=== PATIENT | female | born 1970 | race Hispanic/Latino ===

== ENCOUNTER 2018-11-30 16:24 | Emergency (ER) | payer BC, OTHER ==
[2018-11-30 17:10] LABS: Absolute Lymphocytes (CBC) 1.8 K/uL (0.7-4.9); Basophils % 0.8 % (0-1.3); Hematocrit 23.7 % (36.0-45.0); Lymphocytes % 25.5 % (15.3-44.8); MPV 8.7 fL (7.6-11.3); RBC Red Blood Cell Count 3.75 M/uL (3.86-4.86)
[2018-11-30 17:16] LABS: Protime INR 1.1
[2018-11-30 17:34] LABS: ALT/SGPT 14 U/L (12-78); AST/SGOT 16 U/L (15-37); Albumin 3.3 g/dL (3.4-5.0); Alkaline Phosphatase 95 U/L (45-117); BUN Blood Urea Nitrogen 7 mg/dL (7-18); Bicarbonate 25 mmol/L (21-32); Bilirubin Direct 0.3 mg/dL (0-0.2); Bilirubin Total 1.2 mg/dL (0.2-1.0); Glucose Level 105 mg/dL (74-106); Magnesium 2.2 mg/dL (1.8-2.4); Potassium 3.3 mmol/L (3.5-5.1); Protein, Total 7.2 g/dL (6.4-8.2); Sodium Level 140 mmol/L (136-145); Troponin (Emerg Dept Use Only) < 0.02 ng/mL (0.0-0.045)
[2018-11-30 18:23] LABS: Anisocytosis 2+; Blood Morphology Comment NOTED (NOT SEEN); Hypochromasia 2+; Platelet Estimate INCR; Poikilocytosis 1+; Urine White Blood Cell Casts OK
[2018-11-30] MEDS ORDERED: NA CHLORIDE 0.9% 500 ML ONE (21:28)
[2018-12-01] MEDS ORDERED: NA CHLORIDE 0.9% 500 ML ONE (00:07)
--- NOTE | 2018-12-01 02:20 | EDPHYS ---
Physician Documentation [facility] Name: Herlinda Mackay Age: 48 yrs Sex: Female : 1970 Arrival Date: 11/30/2018 Time: 16:27 Bed 30 Private MD: ED Physician Valerio Torres HPI: 11/30 16:45 This 48 yrs old Female presents to ER via Ambulatory with complaints of cp Abnormal Lab Results. 16:45 abnormal lab results. Onset: The symptoms/episode began/occurred today. The patient has cp experienced a previous episode, years ago. 16:45 Patient reports she was told to go to ED for low hemoglobin by PCP today. Patient cp reports anemia in the past that required hospitalization due to heavy menstrual bleeding. Patient denies any current menstrual bleeding, dark or bloody stools. Reports dizziness. Historical: - Allergies: 16:32 No Known Allergies; aj - Home Meds: 16:32 lisinopril 20 mg Oral tab 1 tab once daily [Active]; aj - PMHx: 16:32 Hypertension; Anemia; aj - PSHx: 16:32 ; Appendectomy; aj - Immunization history:: Adult Immunizations up to date. - Social history:: Smoking status: Patient/guardian denies using tobacco. - Ebola Screening: : Patient negative for fever greater than or equal to 101.5 degrees Fahrenheit, and additional compatible Ebola Virus Disease symptoms Patient denies exposure to infectious person Patient denies travel to an Ebola-affected area in the 21 days before illness onset No symptoms or risks identified at this time. ROS: 16:55 Constitutional: Negative for body aches, chills, fever, poor PO intake. cp 16:55 Eyes: Negative for injury, pain, redness, and discharge. cp 16:55 ENT: Negative for drainage from ear(s), ear pain, sore throat, difficulty swallowing, difficulty handling secretions. 16:55 Cardiovascular: Negative for chest pain, edema, palpitations. 16:55 Respiratory: Positive for shortness of breath, Negative for cough, wheezing. 16:55 Abdomen/GI: Negative for abdominal pain, nausea, vomiting, and diarrhea, constipation, black/tarry stool, rectal bleeding. 16:55 Back: Negative for pain at rest, pain with movement. 16:55 : Negative for urinary symptoms, vaginal bleeding, vaginal discharge. 16:55 Neuro: Positive for dizziness, Negative for altered mental status, syncope, weakness. 16:55 All other systems are negative. Exam: 17:00 Constitutional: The patient appears in no acute distress, alert, awake, cp non-diaphoretic, non-toxic, well developed, well nourished. 17:00 Head/Face: Normocephalic, atraumatic. cp 17:00 Eyes: Periorbital structures: appear normal, Conjunctiva: normal, no exudate, no injection, Lids and lashes: appear normal, bilaterally. 17:00 ENT: External ear(s): are unremarkable, Nose: is normal, Mouth: is normal, Posterior pharynx: is normal, airway is patent. 17:00 Neck: ROM/movement: is normal, is supple, without pain, no range of motions limitations, no nuchal rigidity. 17:00 Chest/axilla: Inspection: normal. 17:00 Cardiovascular: Rate: normal, Rhythm: regular, Heart sounds: murmur, not appreciated, Edema: is not appreciated, JVD: is not appreciated. 17:00 Respiratory: the patient does not display signs of respiratory distress, Respirations: normal, no use of accessory muscles, no retractions, no splinting, no tachypnea, labored breathing, is not present, Breath sounds: are clear throughout, no decreased breath sounds, no stridor, no wheezing. 17:00 Abdomen/GI: Inspection: abdomen appears normal, Palpation: abdomen is soft and non-tender, in all quadrants, Rectal exam: Stool: brown, guaiac negative. 17:00 Neuro: Orientation: to person, place \T\ time. Mentation: is normal, Cerebellar function: is grossly normal, Motor: moves all fours, strength is normal, Sensation: is normal. 17:15 ECG was reviewed by the Attending Physician. cp Vital Signs: 16:32 BP 172 / 90; Pulse 76; Resp 16; Temp 98.4; Pulse Ox 100% on R/A; Weight 83.01 kg; aj Height 5 ft. 3 in. (160.02 cm); 17:24 BP 116 / 73 Supine; Pulse 74; wh 17:24 BP 125 / 80 Sitting; Pulse 86; wh 17:24 BP 124 / 84 Standing; Pulse 83; Resp 18; Pulse Ox 99% on R/A; wh 18:30 BP 120 / 77; Pulse 74; Resp 18; Pulse Ox 100% on R/A; wh 19:37 BP 119 / 77; Pulse 76; Resp 15; Pulse Ox 100% on R/A; aj 20:30 BP 121 / 80; Pulse 70; Resp 18; Pulse Ox 99% ; ea 21:30 BP 131 / 75; Pulse 90; Resp 18; Temp 98.7; Pulse Ox 100% ; ea 22:30 BP 110 / 74; Pulse 84; Resp 18; Pulse Ox 98% ; ea 23:45 BP 113 / 74; Pulse 72; Resp 18; Pulse Ox 100% ; ea 12/01 00:25 BP 107 / 66; Pulse 66; Resp 18; Pulse Ox 100% ; ea 11/30 16:32 Body Mass Index 32.42 (83.01 kg, 160.02 cm) aj MDM: 11/30 16:33 Patient medically screened. [facility] 12/01 02:18 Data reviewed: vital signs, nurses notes, lab test result(s), EKG, I have discussed the cp patient's presentation/case with the attending Emergency Department Physician; and as a result, I will discharge patient. 02:18 Test interpretation: by ED physician or midlevel provider: ECG. Response to treatment: the patient's symptoms have markedly improved after treatment, and as a result, I will discharge patient. 11/30 16:41 Order name: Basic Metabolic Panel; Complete Time: 18:02 11/30 18:02 Interpretation: Normal except: K 3.3; CA 8.1. 11/30 16:41 Order name: CBC with Diff; Complete Time: 19:09 11/30 16:41 Order name: LFT's; Complete Time: 18:02 11/30 19:08 Interpretation: Normal except: BILIT 1.2; BILID 0.3; ALB 3.3; GLOB 3.9; A/G 0.8. 11/30 16:41 Order name: Magnesium; Complete Time: 18:02 11/30 16:41 Order name: PT-INR; Complete Time: 18:02 11/30 16:41 Order name: Troponin (emerg Dept Use Only); Complete Time: 18:02 11/30 16:41 Order name: Ptt, Activated; Complete Time: 18:02 11/30 17:33 Order name: Type And Screen cp 11/30 17:33 Order name: CBC Smear Scan; Complete Time: 19:09 [facility] 11/30 17:33 Order name: Occult Blood--Ancillary bd 11/30 18:09 Order name: Bb Add On bd 11/30 19:12 Order name: Packed RBCs (Additional Unit) [facility] 11/30 20:30 Order name: ABO/RH no charge; Complete Time: 02:20 [facility] 11/30 16:41 Order name: Orthostatics; Complete Time: 17:19 cp 11/30 16:41 Order name: EKG; Complete Time: 16:43 11/30 16:41 Order name: Cardiac monitoring; Complete Time: 17:03 11/30 16:41 Order name: EKG - Nurse/Tech; Complete Time: 17:03 cp 11/30 16:41 Order name: IV Saline Lock; Complete Time: 17:03 11/30 16:41 Order name: Labs collected and sent; Complete Time: 17:03 11/30 16:41 Order name: O2 Per Protocol; Complete Time: 17:03 cp 11/30 16:41 Order name: O2 Sat Monitoring; Complete Time: 17:03 cp EC/29 17:15 Rate is 74 beats/min. Rhythm is regular. GA interval is normal. QRS interval is normal. cp QT interval is normal. Interpreted by me. Administered Medications: 12/01 02:21 CANCELLED (Physician Discretion): Potassium Effervescent Tablet 50 mEq PO once; cp dissolve in 4 ounces of water or juice 02:36 Drug: Potassium Effervescent Tablet 25 mEq Route: PO; ea Disposition: 07:47 Co-signature as Attending Physician, Valerio Torres MD I agree with the assessment and [facility] plan of care. Disposition: 12/01/18 02:19 Discharged to Home. Impression: Anemia in chronic diseases classified elsewhere. - Condition is Stable. - Discharge Instructions: Anemia, Nonspecific. - Medication Reconciliation Form, Thank You Letter, Antibiotic Education, Prescription Opioid Use form. - Follow up: Private Physician; When: 1 - 2 days; Reason: Recheck today's complaints. - Problem is new. - Symptoms have improved. Signatures: Dispatcher [employer] Shahida Rae RN RN aj Anderson, Corey, MD MD cha Page, Corey PA PA cp Erin Adrian, RN RN ea Corrections: (The following items were deleted from the chart) 11/30 18:03 18:02 Normal except: K 3.3. cp cp 12/01 02:21 02:20 Potassium Effervescent Tablet 50 mEq PO once; dissolve in 4 ounces of water or cp juice ordered. cp 03:04 02:19 12/01/2018 02:19 Discharged to Home. Impression: Anemia in chronic diseases ea classified elsewhere. Condition is Stable. Forms are Medication Reconciliation Form, Thank You Letter, Antibiotic Education, Prescription Opioid Use. Follow up: Private Physician; When: 1 - 2 days; Reason: Recheck today's complaints. Problem is new. Symptoms have improved. cp
--- NOTE | 2018-12-01 02:20 | ER ---
Nurse's Notes [facility] Name: Herlinda Mackay Age: 48 yrs Sex: Female : 1970 Arrival Date: 11/30/2018 Time: 16:27 Bed 30 Private MD: Diagnosis: Anemia in chronic diseases classified elsewhere Presentation: 11/30 16:30 Presenting complaint: Patient states: Low HGB per PCP. Transition of care: patient was aj not received from another setting of care. Onset of symptoms was November 27, 2018. Risk Assessment: Do you want to hurt yourself or someone else? Patient reports no desire to harm self or others. Initial Sepsis Screen: Does the patient meet any 2 criteria? No. Patient's initial sepsis screen is negative. Does the patient have a suspected source of infection? No. Patient's initial sepsis screen is negative. Care prior to arrival: None. 16:30 Method Of Arrival: Ambulatory aj 16:30 Acuity: MARU 3 aj Triage Assessment: 16:32 General: Appears in no apparent distress. comfortable, Behavior is calm, cooperative, aj appropriate for age. Pain: Denies pain. Neuro: Level of Consciousness is awake, alert, obeys commands, Oriented to person, place, time, situation, Appropriate for age. Respiratory: Airway is patent Respiratory effort is even, unlabored, Respiratory pattern is regular, symmetrical. Derm: Skin is intact, is healthy with good turgor, Skin is pink, warm \T\ dry. normal. Historical: - Allergies: 16:32 No Known Allergies; aj - Home Meds: 16:32 lisinopril 20 mg Oral tab 1 tab once daily [Active]; aj - PMHx: 16:32 Hypertension; Anemia; aj - PSHx: 16:32 ; Appendectomy; aj - Immunization history:: Adult Immunizations up to date. - Social history:: Smoking status: Patient/guardian denies using tobacco. - Ebola Screening: : Patient negative for fever greater than or equal to 101.5 degrees Fahrenheit, and additional compatible Ebola Virus Disease symptoms Patient denies exposure to infectious person Patient denies travel to an Ebola-affected area in the 21 days before illness onset No symptoms or risks identified at this time. Screenin:22 Abuse screen: Denies threats or abuse. Denies injuries from another. Nutritional wh screening: No deficits noted. Tuberculosis screening: No symptoms or risk factors identified. Fall Risk None identified. Assessment: 17:23 General: Appears in no apparent distress. comfortable, Behavior is calm, cooperative, wh appropriate for age. Pain: Denies pain. Neuro: Level of Consciousness is awake, alert, obeys commands, Oriented to person, place, time, situation, Appropriate for age. Cardiovascular: Capillary refill < 3 seconds. Respiratory: Airway is patent Respiratory effort is even, unlabored, Respiratory pattern is regular, symmetrical. GI: Abdomen is flat, non-distended, Abd is soft and non tender X 4 quads. : No signs and/or symptoms were reported regarding the genitourinary system. EENT: No signs and/or symptoms were reported regarding the EENT system. Derm: Skin is intact, is healthy with good turgor, Skin is pink, warm \T\ dry. normal. Musculoskeletal: Range of motion: intact in all extremities. 18:30 Reassessment: Patient appears in no apparent distress at this time. Patient and/or wh family updated on plan of care and expected duration. Pain level reassessed. Patient is alert, oriented x 3, equal unlabored respirations, skin warm/dry/pink. 19:23 Reassessment: Patient appears in no apparent distress at this time. No changes from aj previously documented assessment. Patient and/or family updated on plan of care and expected duration. Pain level reassessed. Patient is alert, oriented x 3, equal unlabored respirations, skin warm/dry/pink. Patient and family concerned about blood type screening. Blood type verified with lab via phone. Patient denies pain at this time. 20:00 Reassessment: Patient and/or family updated on plan of care and expected duration. Pain ea level reassessed. Patient is alert, oriented x 3, equal unlabored respirations, skin warm/dry/pink. 21:50 Reassessment: Patient and/or family updated on plan of care and expected duration. Pain ea level reassessed. Patient is alert, oriented x 3, equal unlabored respirations, skin warm/dry/pink. 21:54 Reassessment: Patient is alert, oriented x 3, equal unlabored respirations, skin ea warm/dry/pink. Blood transfusion initiated, pt tolerating well at this time. See transfusion flow sheet. 22:23 Reassessment: Patient and/or family updated on plan of care and expected duration. Pain ea level reassessed. Patient is alert, oriented x 3, equal unlabored respirations, skin warm/dry/pink. Patient denies pain at this time. 23:45 Reassessment: Patient and/or family updated on plan of care and expected duration. Pain ea level reassessed. Patient is alert, oriented x 3, equal unlabored respirations, skin warm/dry/pink. First unit of blood completed, pt tolerated well. 12/01 00:25 Reassessment: Patient and/or family updated on plan of care and expected duration. Pain ea level reassessed. Patient is alert, oriented x 3, equal unlabored respirations, skin warm/dry/pink. Second unit of blood started, pt tolerating well, see flow sheet. 01:17 Reassessment: Patient and/or family updated on plan of care and expected duration. Pain ea level reassessed. Pt resting with eyes closed, respirations even and unlabored. Chest expansions even and symmetrical. No s/s of pain or discomfort noted at this time. 01:55 Reassessment: Patient and/or family updated on plan of care and expected duration. Pain ea level reassessed. Patient is alert, oriented x 3, equal unlabored respirations, skin warm/dry/pink. Blood transfusion completed, pt tolerated well. 02:58 Reassessment: Patient and/or family updated on plan of care and expected duration. Pain ea level reassessed. Patient is alert, oriented x 3, equal unlabored respirations, skin warm/dry/pink. Discharge instruction given, verbalized the understanding of instruction, pt reports she is feeling better. Pt left ED ambulatory with family, tolerating well. Vital Signs: 11/30 16:32 BP 172 / 90; Pulse 76; Resp 16; Temp 98.4; Pulse Ox 100% on R/A; Weight 83.01 kg; aj Height 5 ft. 3 in. (160.02 cm); 17:24 BP 116 / 73 Supine; Pulse 74; wh 17:24 BP 125 / 80 Sitting; Pulse 86; wh 17:24 BP 124 / 84 Standing; Pulse 83; Resp 18; Pulse Ox 99% on R/A; wh 18:30 BP 120 / 77; Pulse 74; Resp 18; Pulse Ox 100% on R/A; wh 19:37 BP 119 / 77; Pulse 76; Resp 15; Pulse Ox 100% on R/A; aj 20:30 BP 121 / 80; Pulse 70; Resp 18; Pulse Ox 99% ; ea 21:30 BP 131 / 75; Pulse 90; Resp 18; Temp 98.7; Pulse Ox 100% ; ea 22:30 BP 110 / 74; Pulse 84; Resp 18; Pulse Ox 98% ; ea 23:45 BP 113 / 74; Pulse 72; Resp 18; Pulse Ox 100% ; ea 12/01 00:25 BP 107 / 66; Pulse 66; Resp 18; Pulse Ox 100% ; ea 11/30 16:32 Body Mass Index 32.42 (83.01 kg, 160.02 cm) aj ED Course: 11/30 16:27 Patient arrived in ED. as 16:31 Triage completed. aj 16:32 Arm band placed on right wrist. Patient placed in an exam room. aj 16:33 Valerio Torres MD is Attending Physician. [facility] 16:33 Valerio Salter PA is PHCP. 16:50 Inserted saline lock: 22 gauge in right antecubital area, using aseptic technique. Blood collected. 17:00 Lulú Bowser is Primary Nurse. 17:18 EKG done, by mobile home technician. reviewed by Valerio DUARTE. sm3 17:23 Patient has correct armband on for positive identification. Placed in gown. Bed in low wh position. Call light in reach. Side rails up X 1. equipment monitor phototypesetting on. Pulse ox on. NIBP on. 17:26 Notified Nurse Practitioner and/or Physician Binding Bench Worker of a critical lab result(s), iw Hgb=6.4. 17:26 Served as a microstrategy developer during rectal exam. iw 12/01 02:50 IV discontinued, intact, bleeding controlled, No redness/swelling at site. Pressure ea dressing applied. Administered Medications: 02:21 CANCELLED (Physician Discretion): Potassium Effervescent Tablet 50 mEq PO once; cp dissolve in 4 ounces of water or juice 02:36 Drug: Potassium Effervescent Tablet 25 mEq Route: PO; ea Outcome: 02:19 Discharge ordered by . cp 02:58 Discharged to home ambulatory, with family. ea 02:58 Condition: stable 02:58 Discharge instructions given to patient, Instructed on discharge instructions, follow up and referral plans. Demonstrated understanding of instructions, follow-up care. 03:04 Patient left the ED. joann Signatures: Shahida Baker, RN Valerio Saunders MD MD cha Martinez, Amelia as Williams, Irene RN Valerio Mancia PA PA cp Antunez, Elena, RN RN ea Habalo, Briana Bray sm3
[2018-12-01] MEDS ORDERED: POTASSIUM 25 MEQ EFFERV TAB ONE (02:44)
[2018-12-01 04:31] VITALS: TEMP 98.7
[2018-12-01 04:34] VITALS: O2SAT 100
[2018-12-01 04:35] VITALS: BP 107/66
--- NOTE | 2018-12-01 13:38 | EKG ---
Test Date: 2018-11-30 Test Time: 17:00:40 Director Of Field Sales: JOSELUIS MEASUREMENT RESULTS: Intervals: Rate: 74 MI: 120 QRSD: 76 QT: 414 QTc: 459 [place]: P: 42 MI: 120 QRS: 9 T: 11 INTERPRETIVE STATEMENTS: Normal sinus rhythm Cannot rule out Anterior infarct, age undetermined Abnormal ECG Compared to ECG 04/10/2017 14:25:04 Myocardial infarct finding now present Electronically Signed On 12-01-18 13:34:25 CDT by Luis Montes
== END 2018-12-01 03:04 | disposition home or self-care (01) ==
LOC: ER 16:24
DX: D63.8 Anemia in other chronic diseases classified elsewhere (principal); I10 Essential (primary) hypertension
CPT/HCPCS: 36415; 80048; 80076; 83735; 84484; 85025; 85610; 85730; 86850; 86900; 86901; 93005; 99285; P9016

== ENCOUNTER 2019-05-27 21:33 | Emergency (ER) | payer BC ==
[2019-05-27] MEDS ORDERED: IBUPROFEN 400 MG TAB ONE (21:53)
[2019-05-27] MEDS ORDERED: IBUPROFEN 200 MG TAB PO ONE (21:53)
--- NOTE | 2019-05-27 22:21 | ER ---
Nurse's Notes [facility] Name: Herlinda Porter Age: 48 yrs Sex: Female : 1970 Arrival Date: 05/27/2019 Time: 21:34 Bed Waiting Private MD: Diagnosis: Presentation: 05/27 21:38 Presenting complaint: Patient states: Fever x 2 days, went to [facility] and diagnosed lp1 with stomach virus but given medications for flu, Tamiflu, Zofran; Complaint of feeling like she may have a kidney infection; Took Tylenol extra strength x2 at 1800. Transition of care: patient was not received from another setting of care. Onset of symptoms was May 27, 2019. Risk Assessment: Do you want to hurt yourself or someone else? Patient reports no desire to harm self or others. Care prior to arrival: None. 21:38 Method Of Arrival: Ambulatory lp1 21:38 Acuity: MARU 3 lp1 21:46 Initial Sepsis Screen:. 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 - Social history:: Smoking status: Patient denies any tobacco usage or history of. - Ebola Screening: : No symptoms or risks identified at this time. Screenin:46 Abuse screen: Denies threats or abuse. Denies injuries from another. Nutritional lp1 screening: No deficits noted. Tuberculosis screening: No symptoms or risk factors identified. Fall Risk None identified. Assessment: 22:19 Reassessment: Patient states she will come back in the morning if she is not feeling lp1 better. Vital Signs: 21:43 BP 131 / 82; Pulse 110; Resp 18; Temp 101.5(O); Pulse Ox 98% on R/A; Weight 77.11 kg lp1 (R); Height 5 ft. 3 in. (160.02 cm); 21:43 Body Mass Index 30.11 (77.11 kg, 160.02 cm) lp1 ED Course: 21:34 Patient arrived in ED. cl3 21:42 Triage completed. lp1 21:42 Arm band placed on. lp1 Administered Medications: 21:51 Drug: Motrin 600 mg Route: PO; lp1 Outcome: 22:19 Eloped from waiting room, before seeing physician Time discovered patient gone: May lp1 2019 at 22:20 22:20 Patient left the ED. lp1 Signatures: Julienne Alas RN RN lp1 Charlene Gamboa cl3
[2019-05-27 22:28] VITALS: BP 131/82; TEMP 101.5; O2SAT 98
== END 2019-05-27 22:20 | disposition left against medical advice (07) ==
LOC: ER 21:33
DX: Z53.21 Procedure and treatment not carried out due to patient leaving prior to being seen by health care provider (principal)
CPT/HCPCS: 99282

== ENCOUNTER 2019-09-17 16:38 | Emergency (ER) | payer BC ==
--- OUTSIDE RECORDS SUMMARY | 2019-09-17 16:40 | XMS REPORT | Clinical Summary ---
:1970 Author Organization [facility] Address [address] [place] [address] Care Team Providers Name Role Phone Asked, Pcp Primary Care Provider Unavailable Allergies No Known Allergies Medications Medication Sig Dispensed Refills Start Date End Date Status oseltamivir Take 1 capsule 10 capsule 0 05/27/2019 06/01/2019 (TAMIFLU) 75 MG (75 mg total) by capsule mouth 2 (two) times a day for 5 days. ondansetron (ZOFRAN) Take 1 tablet (4 20 tablet 0 05/27/2019 0 06/06/2019 4 MG tablet mg total) by mouth every 8 (eight) hours as needed for nausea or vomiting for up to 10 days. Active Problems Not on file Encounters Date Type Specialty Care Team Description 05/27/2019 Emergency Emergency Medicine DEENA Lawson (jaki Rich MD respiratory infection) (Primary Dx) after 09/16/2018 Social History Tobacco Use Types Packs/Day Years Used Date Former Smoker Smokeless Tobacco: Never Used Alcohol Use Drinks/Week oz/Week Comments Yes social Sex Assigned at Date Recorded Not on file Job Start Date Occupation Industry Not on file Not on file Not on file Travel History Travel Start Travel End No recent travel history available. Last Filed Vital Signs Vital Sign Reading Time Taken Comments Blood Pressure 113/63 05/27/2019 4:30 PM BUILDINGS AND GROUNDS COORDINATOR Pulse 102 05/27/2019 4:30 PM BUILDINGS AND GROUNDS COORDINATOR Temperature 37.5 C (99.5 F) 05/27/2019 4:00 PM BUILDINGS AND GROUNDS COORDINATOR Respiratory Rate 19 05/27/2019 4:30 PM BUILDINGS AND GROUNDS COORDINATOR Oxygen Saturation 95% 05/27/2019 4:30 PM BUILDINGS AND GROUNDS COORDINATOR Inhaled Oxygen Concentration - - Weight 77.1 kg (170 lb) 05/27/2019 10:46 AM BUILDINGS AND GROUNDS COORDINATOR Height 160 cm (5' 3") 05/27/2019 10:46 AM BUILDINGS AND GROUNDS COORDINATOR Body Mass Index 30.11 05/27/2019 10:46 AM BUILDINGS AND GROUNDS COORDINATOR Plan of Treatment Health Maintenance Due Date Last Done Comments CERVICAL CANCER SCREENING 1993 INFLUENZA VACCINE 12/04/2019 Procedures Procedure Name Priority Date/Time Associated Comments Diagnosis ECG ED PRELIMINARY Routine 05/27/2019 1:35 Resul ts for this INTERPRETATION PM BUILDINGS AND GROUNDS COORDINATOR procedure are in the results section. XR CHEST 1 VW PORTABLE STAT 05/27/2019 1:15 R esults for this PM BUILDINGS AND GROUNDS COORDINATOR procedure are i n the results section. INFLUENZA ANTIGEN STAT 05/27/2019 12:05 Result s for this PM BUILDINGS AND GROUNDS COORDINATOR procedure are i n the results section. SMEAR REVIEW STAT 05/27/2019 11:24 Results for this AM BUILDINGS AND GROUNDS COORDINATOR procedure are i n the results section. ESTIMATED GFR STAT 05/27/2019 11:24 Results fo r this AM BUILDINGS AND GROUNDS COORDINATOR procedure are i n the results section. COMPREHENSIVE METABOLIC STAT 05/27/2019 11:24 Results for this PANEL AM BUILDINGS AND GROUNDS COORDINATOR procedure are i n the results section. HC COMPLETE BLD COUNT STAT 05/27/2019 11:24 Re sults for this W/AUTO DIFF AM BUILDINGS AND GROUNDS COORDINATOR procedure are i n the results section. ECG 12-LEAD STAT 05/27/2019 10:42 Results for this AM BUILDINGS AND GROUNDS COORDINATOR procedure are i n the results section. 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 No confluent airspace disease or ove rt pulmonary edema. No pleural effusion or pneumothor ax. Cardiomediastinal silhouette is within normal limits a ccounting for portable technique, patient body habitus , and low lung volumes. [id number] Procedure Note Hm Interface, Radiology Results Incoming - 05/27/2019 1:25 PM BUILDINGS AND GROUNDS COORDINATOR EXAMINATION: XR CHEST 1 VW PORTABLE INDICATION: SOB COMPARISON: None IMPRESSION: Low lung volumes. No confluent airspace disease or overt pulmonary edema. No pleural effusion or pneumothorax. Cardiomediastinal silhouette is within n ormal limits accounting for portable technique, patient body habitus, and low lung volumes. [id number] Performing Organization Address [facility] Phone Number [facility] [address] [place] [phone] Influenza antigen (05/27/2019 12:05 PM BUILDINGS AND GROUNDS COORDINATOR) Pathologist [facility] [place] Influenza antigen Negative for Influenza A/B antigen. [facility] Comment: HOSPITAL Specimen Information Specimen Source: Nares Specimen Site: Right Specimen Nares - Right Performing Organization Address [facility] Phone Number [facility] DEPARTMENT OF PATHOLOGY AND [address] [place] [phone] Smear review (05/27/2019 11:24 AM BUILDINGS AND GROUNDS COORDINATOR) [facility] Platelet slide review Increased (A) [facility] Anisocytosis Moderate [facility] Polychromasia Moderate [facility] Target cells Moderate (A) [facility] Ovalocytes Moderate [facility] Enlarged platelets Moderate (A) [facility] Giant platelets Occasional [facility] Toxic granulation Slight [facility] Specimen Performing Organization Address [facility] Phone Number [facility] DEPARTMENT OF PATHOLOGY AND [address] [place] [address] [phone] [address] Estimated GFR (05/27/2019 11:24 AM BUILDINGS AND GROUNDS COORDINATOR) [facility] Estimated GFR >=90 mL/min/1.73 [facility] Comment: HOSPITAL Catergory Units Interpretation G1 >=90 Normal or high G2 60-89 Mildly decreased G3a 45-59 Mildly to moderately decreas ed G3b 30-44 Moderately to severely decre ased G4 15-29 Severely decreased G5 <15 Kidney failure The eGFR was calculated using the Chronic Kidney Disea se Epidemiology Collaboration (CKD-EPI) equation. Interpretation is based on recommendations of the National Kidney Foundation-Kidney Disease Outcomes Claudio lity Initiative (NKF-KDOQI) published in 2014. Specimen Plasma specimen Performing Organization Address City/State/Zipcode Phone Number [facility] DEPARTMENT OF PATHOLOGY AND [address] [place] [address] [phone] [address] CBC with platelet and differential (05/27/2019 11:24 AM BUILDINGS AND GROUNDS COORDINATOR) WBC 8.91 4.50 - 11.00 [facility] k/uL HOSPITAL RBC 4.13 (L) 4.20 - 5.50 [facility] m/uL HOSPITAL HGB 7.2 (L) 12.0 - 16.0 [facility] g/dL [facility] HCT 28.4 (L) 37.0 - 47.0 % [facility] MCV 68.8 (L) 82.0 - 100.0 [facility] MCH 17.4 (L) 27.0 - 34.0 pg [facility] MCHC 25.4 (L) 31.0 - 37.0 [facility] g/dL [facility] RDW - SD 43.8 37.0 - 55.0 fL [facility] MPV 10.0 8.8 - 13.2 fL [facility] Platelet count 458 (H) 150 - 400 k/uL [facility] Nucleated RBC 0.00 /100 WBC [facility] Neutrophils 90.2 (H) 39.0 - 69.0 % [facility] Lymphocytes 3.7 (L) 25.0 - 45.0 % [facility] Monocytes 4.2 0.0 - 10.0 % [facility] Eosinophils 1.2 0.0 - 5.0 % [facility] Basophils 0.3 0.0 - 1.0 % [facility] Immature granulocytes 0.4Comment: 0.0 - 1.0 % [facility] "Immature [facility] granulocytes" (promyelocytes , myelocytes, metamyelocytes ) Specimen Blood Performing Organization Address City/State/Zipcode Phone Number [facility] DEPARTMENT OF PATHOLOGY AND [address] [place], [place] [phone] [address] Comprehensive metabolic panel (05/27/2019 11:24 AM BUILDINGS AND GROUNDS COORDINATOR) Sodium 138 135 - 148 [facility] mEq/L [facility] Potassium 3.7 3.5 - 5.0 [facility] mEq/L [facility] Chloride 100 98 - 112 mEq/L [facility] CO2 22 (L) 24 - 31 mEq/L [facility] Anion gap 16@ANIO (H) 7 - 15 mEq/L [facility] BUN 7 6 - 20 mg/dL [facility] Creatinine 0.77 0.50 - 0.90 [facility] mg/dL HOSPITAL Glucose 139 (H) 65 - 99 mg/dL [facility] Calcium 8.2 (L) 8.3 - 10.2 [facility] mg/dL [facility] Protein 7.6 6.3 - 8.3 g/dL [facility] Comment: HOSPITAL Armvfao8707.6-7.0 g/dL 1 zgaf8808.4-7.6 g/dL 7 months-1fxme313.1-7.3 g/dL 1-2 .6-7.5 g/dL >3 azvvc632.0-8.0 g/dL 18-6867237.3-8.3 g/dL Albumin 3.4 (L) 3.5 - 5.0 g/dL [facility] A/G ratio 0.8 0.7 - 3.8 [facility] Alkaline phosphatase 100 35 - 104 U/L [facility] AST 50 (H) 10 - 35 U/L [facility] ALT 16 5 - 50 U/L [facility] Total bilirubin 1.8 (H) 0.0 - 1.2 [facility] mg/dL [facility] Specimen Plasma specimen Performing Organization Address City/State/Zipcode Phone Number [facility] DEPARTMENT OF PATHOLOGY AND [address] [place], [place] [phone] [address] ECG 12 lead (05/27/2019 10:42 AM BUILDINGS AND GROUNDS COORDINATOR) Pathologist Sig nature Ventricular rate 122 [facility] MUSE Atrial rate 122 [facility] MUSE [place] interval 122 [facility] MUSE QRSD interval 70 [facility] QT interval 308 [facility] MUSE QTC interval 438 [facility] MUSE P axis 1 34 HM MUSE QRS axis 1 12 [facility] MUSE T wave axis -1 [facility] MUSE EKG impression Sinus [facility] MUSE tachycardia-Nonspecific ST and T wave abnormality-Abnormal ECG-No previous ECGs available-Electronicall y Signed By Sayda Moore ([id number]) on 05/28/2019 9:03:37 PM Specimen Narrative Performed At This result has an attachment that is no t available. 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
--- OUTSIDE RECORDS SUMMARY | 2019-09-17 16:41 | XMS REPORT ---
:1970 Author Organization [facility] t Address [address] [place] [address] Care Team Providers Name Role Phone Asked, Pcp Primary Care Physician Unavailable Lulu MORRIS RFidelia Attending Clinician Payers Payer Name Policy Type Policy Number Effective Date Expiration Date S jhoana BCBSBCBS xxxxxxxxxxxx 2018 [place] CHOICE 00:00:00 Christian PPO/[employer]PL PPOxxxxxxxxxxx 2018-Pres entPPO Problems This patient has no known problems. Allergies, Adverse Reactions, Alerts This patient has no known allergies or adverse reactions. Social History Social Habit Start Date Stop Date Quantity Comments Source Sex Assigned At [facility] ethodi Alcohol intake 2019-05-27 2019-05-27 Current drinker [place] 00:00:00 00:00:00 of alcohol (finding) Alcohol Comment 2019-05-27 2019-05-27 social [facility] ethodist 00:00:00 00:00:00 Smoking Status Start Date Stop Date Source Former smoker 2019-05-27 00:00:00 2019-05-27 00:00:00 [facility] Medications Ordered Filled Start Stop Current Ordering Indication Dosage Frequency Signature Comments Components Source Medication Medication Date Date Medication? Clinician (SIG) Name Name ondansetron 2020- No 4mg Q8H Take 1 Karol ston (ZOFRAN) 4 05-27 0203 tablet (4 Met hodi MG tablet 00:00: 05:59 mg total) st 00 :00 by mouth every 8 (eight) hours as needed for nausea or vomiting for up to 10 days. oseltamivir 2019- No 75mg Q.5D Take 1 Karol ston (TAMIFLU) 05-27 capsule Method i 75 MG 00:00: 05:59 ([address] capsule 00 :00 total) by mouth 2 (two) times a day for 5 days. Vital Signs Vital Name Observation Time Observation Value Comments Source Systolic blood 2019-05-27 22:30:00 113 mm[Hg] Edilma [facility] pressure Diastolic blood 2019-05-27 22:30:00 63 mm[Hg] [place] on [place] pressure Heart rate 2019-05-27 22:30:00 102 /min Alberto Houston Respiratory rate 2019-05-27 22:30:00 19 /min Karen [facility] Oxygen saturation in 2019-05-27 22:30:00 95 /min Alberto Houston Arterial blood by Pulse oximetry Body temperature 2019-05-27 22:00:00 37.5 Silvina Karen Houston Body height 2019-05-27 16:46:00 160 cm Alberto Houston Body weight 2019-05-27 16:46:00 77.11 kg Alberto Houston BMI 2019-05-27 16:46:00 30.11 kg/m2 Alberto Houston Procedures Procedure Date / Time Performing Clinician Source Performed ECG ED PRELIMINARY 2019-05-27 19:35:41 Alberto Lawson ethodist INTERPRETATION Kayden Rich XR CHEST 1 VW PORTABLE 2019-05-27 19:15:15 ErnaAniket Arthur dentongeraldine Christian INFLUENZA ANTIGEN 2019-05-27 18:05:00 EnraAniketjai [facility] HC COMPLETE BLD COUNT 2019-05-27 17:24:00 Edilma Lawson W/AUTO DIFF Kayden Rich COMPREHENSIVE METABOLIC 2019-05-27 17:24:00 Karen Lawson PANEL Kayden Rich ESTIMATED GFR 2019-05-27 17:24:00 Alberto Lawson Meth annmarie Monique RFidelia SMEAR REVIEW 2019-05-27 17:24:00 Alberto Lawson Meth annmarie Monique RFidelia ECG 12-LEAD 2019-05-27 16:42:05 Allan Meyer [facility] Plan of Care Planned Activity Planned Date Details Comments Source Future Scheduled 2019-12-04 INFLUENZA VACCINE Edilma [facility] Test 00:00:00 [code = INFLUENZA VACCINE] Future Scheduled 1993 Screening for [place] [facility] Test 00:00:00 malignant neoplasm of cervix (procedure) [code = 760128130] Encounters Start End Encounter Admission Attending Care Care Encounter Source Date/Time Date/Time Type Type Clinicians Facility Department ID 2019-05-27 2019-05-27 Emergency [facility] [phone] [id number] [place] 00:00:00 00:00:00 RI, [address] Results Test Description Test Time Test Comments Results Result Comments Source ECG 12 lead 2019-05-29 03:03:40 Test Item Value Reference Range Interpretation Comme nts Ventricular rate (test code = 253) 122 Atrial rate (test code = 255) 122 RI interval (test code = 266) 122 QRSD interval (test code = 260) 70 QT interval (test code = 264) 308 QTC interval (test code = 265) 438 P axis 1 (test code = 267) 34 QRS axis 1 (test code = 268) 12 T wave axis (test code = 270) -1 EKG impression (test code = 273) Sinus tachycardia-Nonspecific ST a nd T wave abnormality-Abnormal ECG-No previous ECGs available- [place] [facility] Preliminary Interpretation - Not an [id number] 19:35:41 Test Item Value Reference Range Interpretation Comments KRISTY (test code = KRISTY) Kayden Lawson MD 06/01/2019 8:41 [facility] ED Preliminary Interpretation - Not an OrderPerformed by: Kayden Lawson MDAuthorized by: Kayden Lawson MD ECG reviewed by ED Physician in the 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 No confluent airspace disease or overt pulmonary edema. No pleural effusion or pneumothorax.Cardiomediastinal silhouette is within normal limits accounting for portable technique, patient body habitus, and low lung volumes.[id number] [place] MethodistInfluenza [id number] 19:14:13 Test Item Value Reference Range Interpretation Comments Influenza Negative for Specimen antigen (test Influenza A/B InformationSp ecimen code = 32700-8) antigen. [facility] Right [place] MethodistSmear [id number] 18:52:26 Test Item Value Reference Range Interpretation Comments Platelet slide review (test code = Increased A 61435-0) Anisocytosis (test code = 702-1) Moderate Polychromasia (test code = Moderate 80894-9) Target cells (test code = 59321-9) Moderate A Ovalocytes (test code = 774-0) Moderate Enlarged platelets (test code = Moderate A 66274-8) Giant platelets (test code = Occasional 5908-9) Toxic granulation (test code = Slight 803-7) Lab Interpretation (test code = Abnormal 00465-3) [place] MethodistComprehensive metabolic [id number] 18:00:19 Test Item Value Reference Range Interpretation Comments Sodium (test code = 138 135- 148 mEq/L 2951-2) Potassium (test code = 3.7 3.5- 5.0 mEq/L 2823-3) Chloride (test code = 100 98- 112 mEq/L 5-0) CO2 (test code = 2027-9) 22 24- 31 mEq/L L Anion gap (test code = 16@ANIO 7- 15 mEq/L H 13469-4) BUN (test code = 3094-0) 7 mg/dL 6-20 Creatinine (test code = 0.77 mg/dL 0.5-0.9 2160-0) Glucose (test code = 139 mg/dL 65-99 H 2345-7) Calcium (test code = 8.2 mg/dL 8.3-10.2 L 58145-0) Protein (test code = 7.6 g/dL 6.3-8.3 [place] 9994.6-7.0 2885-2) g/dL1 cqcg6876.4-7.6 g/dL7 months-2crlz414 .1- 7.3 g/dL1-2 wyule002.6-7.5 g/dL>3 cawzi770.0-8.0 g/mZ94-1075433. 3-8 .3 g/dL Albumin (test code = 3.4 g/dL 3.5-5 L 1751-7) A/G ratio (test code = 0.8 0.7-3.8 1759-0) Alkaline phosphatase 100 U/L 35-104 (test code = 6768-6) AST (test code = 1920-8) 50 U/L 10-35 H ALT (test code = 1742-6) 16 U/L 5-50 Total bilirubin (test 1.8 mg/dL 0-1.2 H code = 1974-) Lab Interpretation (test Abnormal code = 94774-9) [facility] MethodistEstimated [id number] 18:00:19 Test Item Value Reference Range Interpretation Comments Estimated GFR (test >=90 mL/min/1.73 m2 [facility] ory Units code = 5488) InterpretationG 1 >=90 Normal or highG2 60-89 Mildly ieeoiciclO8y 45-59 Mildly to mode rately xskxegvegM5z 30-44 Moderately to severely decreasedG4 15-29 Severely decre asedG5 <15 Kidn ey failureThe eGFR was calculated raymundo coleman the Chronic Kidney Disease Epidemiology Co llaboration (CKD-EPI) equat ion. Interpretation is based on recommendations of the National Kidney Foundation-Kidn ey Disease Outcomes Qualit y Initiative (NKF-KDOQI) pub lished in 2014. [facility] MethodistCBC with platelet and [id number] 17:36:54 Test Item Value Reference Range Interpretation Comments WBC (test code = 46583-1) 8.91 4.50- 11.00 k/uL RBC (test code = 74505-8) 4.13 m/uL 4.2-5.5 L HGB (test code = 718-7) 7.2 g/dL 12-16 L HCT (test code = 4544-3) 28.4 % 37-47 L MCV (test code = 787-2) 68.8 fL 82-100 L MCH (test code = 785-6) 17.4 pg 27-34 L MCHC (test code = 786-4) 25.4 g/dL 31-37 L RDW - SD (test code = 43.8 fL 37-55 18428-7) MPV (test code = 47498-7) 10.0 fL 8.8-13.2 Platelet count (test code 458 150- 400 k/uL H = 77113-5) Nucleated RBC (test code 0.00 /100 WBC = 94747-5) Neutrophils (test code = 90.2 % 39-69 H 26718-0) Lymphocytes (test code = 3.7 % 25-45 L 77920-6) Monocytes (test code = 4.2 % 0-10 86378-2) Eosinophils (test code = 1.2 % 0-5 93323-0) Basophils (test code = 0.3 % 0-1 72557-6) Immature granulocytes 0.4 % 0-1 "Immat ure (test code = 75893-1) granul ocytes" (promyelocytes, myelocytes, metamyelocytes) Lab Interpretation (test Abnormal code = 08011-2) Alberto Houston
[2019-09-17 18:49] LABS: Absolute Lymphocytes (CBC) 1.9 K/uL (0.7-4.9); Hematocrit 26.1 % (36.0-45.0); Lymphocytes % 22.8 % (15.3-44.8); MPV 8.6 fL (7.6-11.3)
[2019-09-17 18:53] LABS: Protime INR 1.1
[2019-09-17 18:57] LABS: BUN Blood Urea Nitrogen 9 mg/dL (7-18); Bicarbonate 25 mmol/L (21-32); Glucose Level 119 mg/dL (74-106); Magnesium 1.8 mg/dL (1.8-2.4); Potassium 3.3 mmol/L (3.5-5.1); Sodium Level 137 mmol/L (136-145)
[2019-09-17 19:14] LABS: Platelet Estimate INCR; Urine White Blood Cell Casts OK
[2019-09-17 19:15] LABS: Blood Morphology Comment NOTED (NOT SEEN); Hypochromasia 3+
[2019-09-17 19:22] LABS: Urine Blood 2+ (NEG); Urine Glucose NEGATIVE (NEG); Urine Protein 1+ (NEG); Urine Specific Gravity >1.030 (1.005-1.030)
[2019-09-17] MEDS ORDERED: MEDROXYPROGEST ACET 150 MG/ML IM ONE (20:54)
[2019-09-17] MEDS ORDERED: NA CHLORIDE 0.9% 250 ML ONE (22:07)
--- NOTE | 2019-09-18 00:49 | EDPHYS ---
Physician Documentation [facility] Name: Herlinda Porter Age: 48 yrs Sex: Female : 1970 Arrival Date: 09/17/2019 Time: 16:39 Bed 8 Private MD: Albert Leach H ED Physician Valerio Torres HPI: 09/16 17:55 This 48 yrs old Female presents to ER via Ambulatory with complaints of needs cp blood transfusion. 17:55 The patient presents with vaginal bleeding that is heavy, reports using 5 pads or cp tampons per day, anemia. 17:55 Onset: The symptoms/episode began/occurred 2 day(s) ago. Associated signs and symptoms: cp Pertinent positives: fatigue, dizziness, Pertinent negatives: fever, chest pain, abdominal pain. The patient's method of control includes nothing. The patient has experienced similar episodes in the past, a few times, but today's symptoms are not as bad as this previous episode. 17:55 Patient reports having recent blood work drawn this week that showed hemoglobin level cp of 6.8. 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 - Social history:: Smoking status: Patient denies any tobacco usage or history of. ROS: 18:00 Constitutional: Positive for fatigue, Negative for chills, fever, poor PO intake. cp 18:00 Eyes: Negative for injury, pain, redness, and discharge. cp 18:00 Cardiovascular: Negative for chest pain, edema, palpitations. 18:00 Respiratory: Negative for cough, shortness of breath, wheezing. 18:00 Abdomen/GI: Negative for abdominal pain, nausea, vomiting, and diarrhea. 18:00 : Positive for vaginal bleeding, Negative for urinary symptoms. 18:00 Neuro: Positive for dizziness, Negative for altered mental status, syncope, weakness. 18:00 All other systems are negative. Exam: 18:05 Constitutional: The patient appears in no acute distress, alert, awake, cp non-diaphoretic, non-toxic, well developed, well nourished. 18:05 Head/Face: Normocephalic, atraumatic. cp 18:05 Eyes: Periorbital structures: appear normal, Conjunctiva: normal, no exudate, no injection, Sclera: no appreciated abnormality, Lids and lashes: appear normal, bilaterally. 18:05 ENT: External ear(s): are unremarkable, Nose: is normal, Mouth: is normal, Posterior pharynx: Airway: no evidence of obstruction, patent. 18:05 Chest/axilla: Inspection: normal. 18:05 Cardiovascular: Rate: normal, Rhythm: regular, Edema: is not appreciated, JVD: is not appreciated. 18:05 Respiratory: the patient does not display signs of respiratory distress, Respirations: normal, no use of accessory muscles, no retractions, labored breathing, is not present, Breath sounds: are clear throughout, no decreased breath sounds. 18:05 Abdomen/GI: Inspection: abdomen appears normal, Bowel sounds: active, all quadrants, Palpation: abdomen is soft and non-tender, in all quadrants. 18:05 Back: pain, is absent, ROM is normal. 18:05 Neuro: Orientation: to person, place \T\ time. Mentation: is normal, Cerebellar function: is grossly normal, Motor: moves all fours, strength is normal, Sensation: is normal. 19:14 ECG was reviewed by the Attending Physician. cp Vital Signs: 16:44 BP 137 / 90; Pulse 88; Resp 16 S; Temp 97.6(TE); Pulse Ox 100% on R/A; Weight 80.74 kg ca1 (R); Height 5 ft. 3 in. (160.02 cm) (R); Pain 0/10; 18:46 BP 132 / 82; Pulse 84; Resp 16 S; Pulse Ox 100% on R/A; jl7 18:53 BP 132 / 82 Supine; Pulse 74; lt1 18:53 BP 132 / 87 Sitting; Pulse 78; lt1 18:53 BP 134 / 91 Standing; Pulse 85; Resp 17; Pulse Ox 100% ; lt1 19:35 BP 132 / 93; Pulse 80; Resp 16; Temp 98; Pulse Ox 99% ; rr5 20:30 BP 125 / 78; Pulse 86; Resp 19; Pulse Ox 98% on R/A; rr5 21:40 BP 120 / 79; Pulse 80; Resp 16; Pulse Ox 100% ; rr5 22:30 BP 121 / 79; Pulse 78; Resp 16; Pulse Ox 100% on R/A; rv 22:45 BP 121 / 79; Pulse 79; Resp 16; Temp 98.5; Pulse Ox 99% ; rr5 23:00 BP 131 / 81; Pulse 75; Resp 15; Pulse Ox 100% on R/A; rv 09/17 03:31 BP 97 / 67; Pulse 67; Resp 16; Temp 98.3; Pulse Ox 100% on R/A; rv 09/16 16:44 Body Mass Index 31.53 (80.74 kg, 160.02 cm) ca1 09/16 22:45 first unit of PRBC started, please see transfusion record rr5 MDM: 17:47 Patient medically screened. cp 18:00 Differential diagnosis: anemia. 20:20 Data reviewed: vital signs, nurses notes, lab test result(s), I have discussed the patient's presentation/case with the attending Emergency Department Physician;. 20:22 Physician consultation: Ariella Spears MD was called at 20:22, was contacted at 20:22, regarding consult, patient's condition, wants patient to be transfused 2 units of blood and to be given IM Depo shot. Patient is to f/u in clinic Friday for reevaluation. 09/16 17:54 Order name: Basic Metabolic Panel; Complete Time: 19:15 09/16 19:15 Interpretation: Normal except: K 3.3; GLUC 119; CA 8.1. 09/16 17:54 Order name: CBC with Diff; Complete Time: 19:16 cp 09/16 19:16 Interpretation: Normal except: HGB 7.3; HCT 26.1; MCV 62.3; MCH 17.3; MCHC 27.9; PLT cp 413; RDW 18.9. 09/16 17:54 Order name: Magnesium; Complete Time: 19:15 cp 09/16 17:54 Order name: PT-INR; Complete Time: 19:15 cp 09/16 17:54 Order name: Ptt, Activated; Complete Time: 19:15 cp 09/16 18:51 Order name: Urine Dipstick--Ancillary (enter results); Complete Time: 19:57 ar5 05/15 19:57 Interpretation: Normal except: UBLD 2+; UPROT 1+. cp 05 17:46 Order name: Orthostatics; Complete Time: 18:55 cp 09/16 17:47 Order name: Urine Dipstick-Ancillary (obtain specimen); Complete Time: 18:55 cp 09/16 17:54 Order name: EKG; Complete Time: 17:55 cp 09/16 18:51 Order name: Urine --Ancillary (enter results); Complete Time: 19:57 ar5 09/16 19:14 Order name: CBC Smear Scan [facility] 09/16 20:14 Order name: Type And Screen cp 09/16 21:27 Order name: Packed RBC Leukored EDNC 09/16 17:47 Order name: Urine Test (obtain specimen); Complete Time: 18:55 cp 09/16 17:54 Order name: Cardiac monitoring; Complete Time: 18:48 cp 09/16 17:54 Order name: EKG - Nurse/Tech; Complete Time: 18:48 cp 09/16 17:54 Order name: IV Saline Lock; Complete Time: 18:48 cp 09/16 17:54 Order name: Labs collected and sent; Complete Time: 18:48 cp 09/16 17:54 Order name: O2 Per Protocol; Complete Time: 18:48 cp 09/16 17:54 Order name: O2 Sat Monitoring; Complete Time: 18:48 cp 09/16 19:24 Order name: Pelvic Exam Setup; Complete Time: 20:02 cp 09/16 20:26 Order name: Transfuse; Complete Time: 03:30 cp EC:14 Rate is 75 beats/min. Rhythm is regular. NC interval is normal. QRS interval is normal. cp QT interval is normal. T waves are Inverted in leads III, V3. Interpreted by me. Reviewed by me. Administered Medications: 21:23 Drug: DepoProvera - medroxyPROGESTERone 150 mg Route: IM; Site: left deltoid; rr5 09/17 03:31 Follow up: Response: No adverse reaction rv Disposition: 09: Co-signature as Attending Physician, Valerio Torres MD I agree with the assessment and cammy plan of care. Disposition: 09/18/19 00:48 Discharged to Home. Impression: Anemia in chronic diseases classified elsewhere, Other specified abnormal uterine and vaginal bleeding. - Condition is Stable. - Discharge Instructions: Anemia, Nonspecific, Menorrhagia. - Medication Reconciliation Form, Thank You Letter, Antibiotic Education, Prescription Opioid Use form. - Follow up: Ariella Spears MD; When: 09/20/2019; Reason: Recheck today's complaints. - Problem is an ongoing problem. - Symptoms have improved. Signatures: Dispatcher [employer] EDValerio Gonzales MD MD cha Page, Corey, PA PA cp Hai Aldana RN RN rv Lenin Noland RN RN rr5 Babita Mcgovern RN RN ca1 Corrections: (The following items were deleted from the chart) 09/16 19:16 19:15 Normal except: K 3.3; GLUC 119. cp cp 09/17 03:32 00:48 09/18/2019 00:48 Discharged to Home. Impression: Anemia in chronic diseases rv classified elsewhere; Other specified abnormal uterine and vaginal bleeding. Condition is Stable. Forms are Medication Reconciliation Form, Thank You Letter, Antibiotic Education, Prescription Opioid Use. Follow up: Ariella Spears; When: 09/20/2019; Reason: Recheck today's complaints. Problem is an ongoing problem. Symptoms have improved. cp
--- NOTE | 2019-09-18 00:49 | ER ---
Nurse's Notes [facility] Name: Herlinda Porter Age: 48 yrs Sex: Female : 1970 Arrival Date: 09/17/2019 Time: 16:39 Bed 8 Private MD: Albert Leach H Diagnosis: Anemia in chronic diseases classified elsewhere;Other specified abnormal uterine and vaginal bleeding Presentation: 09/16 16:44 Chief complaint: Patient states: Friday had a blood draw for a weight loss procedure, ca1 resulted on Friday. They said my HGB is 6.8 and needs a transfusion. Coronavirus screen: Proceed with normal triage. Patient denies a cough. Patient denies shortness of breath or difficulty breathing. Patient denies measured and/or subjective temperature greater than 100.4F prior to today's visit. Patient denies travel on a cruise ship or to a country the [facility] currently lists as an affected area. Patient denies contact with known and/or suspected case of COVID-19. Ebola Screen: Patient negative for fever greater than or equal to 101.5 degrees Fahrenheit, and additional compatible Ebola Virus Disease symptoms Patient denies exposure to infectious person. Patient denies travel to an Ebola-affected area in the 21 days before illness onset. No symptoms or risks identified at this time. Initial Sepsis Screen: Does the patient meet any 2 criteria? No. Patient's initial sepsis screen is negative. Does the patient have a suspected source of infection? No. Patient's initial sepsis screen is negative. Risk Assessment: Do you want to hurt yourself or someone else? Patient reports no desire to harm self or others. Onset of symptoms was September 17, 2019. 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 - Social history:: Smoking status: Patient denies any tobacco usage or history of. Screenin:46 Abuse screen: Denies threats or abuse. Denies injuries from another. Nutritional jl7 screening: No deficits noted. Tuberculosis screening: No symptoms or risk factors identified. Fall Risk IV access (20 points). Total Barkley Fall Scale indicates No Risk (0-24 pts). Assessment: 18:46 General: Appears in no apparent distress. uncomfortable, Behavior is calm, cooperative, jl7 appropriate for age. Pain: Denies pain. Neuro: Level of Consciousness is awake, alert, obeys commands, Oriented to person, place, time, situation. Cardiovascular: Patient's skin is warm and dry. Respiratory: Airway is patent Respiratory effort is even, unlabored, Respiratory pattern is regular, symmetrical. Derm: Skin is dry, Skin is normal, Skin temperature is warm. 19:22 General: Appears in no apparent distress. comfortable, Behavior is calm, cooperative, rr5 appropriate for age. Pain: Denies pain. Neuro: Level of Consciousness is awake, alert, obeys commands, Oriented to person, place, time, situation. Cardiovascular: Capillary refill < 3 seconds Patient's skin is warm and dry. Respiratory: Airway is patent Respiratory effort is even, unlabored, Respiratory pattern is regular, symmetrical. GI: No signs and/or symptoms were reported involving the gastrointestinal system. : Reports vaginal bleeding that is bright red, with clots, moderate flow. EENT: No signs and/or symptoms were reported regarding the EENT system. Derm: Skin is intact, is healthy with good turgor, Skin temperature is warm. Musculoskeletal: Circulation, motion, and sensation intact. Capillary refill < 3 seconds. 20:30 Reassessment: Patient appears in no apparent distress at this time. No changes from rr5 previously documented assessment. 21:30 Reassessment: Patient appears in no apparent distress at this time. Patient is alert, rr5 oriented x 3, equal unlabored respirations, skin warm/dry/pink. awaiting for blood product. 22:40 Reassessment: Patient appears in no apparent distress at this time. Patient is alert, rr5 oriented x 3, equal unlabored respirations, skin warm/dry/pink. first unit of PRBC started, counter checked by maximiliano GREGORY. 23:26 Reassessment: Patient appears in no apparent distress at this time. Patient is alert, rr5 oriented x 3, equal unlabored respirations, skin warm/dry/pink. reassess by ED provider at bedside. 09/17 00:54 Reassessment: Patient appears in no apparent distress at this time. Patient and/or rr5 family updated on plan of care and expected duration. Pain level reassessed. Patient is alert, oriented x 3, equal unlabored respirations, skin warm/dry/pink. first unit of PRC consumed and terminated. second unit requested. 01:25 Reassessment: Patient appears in no apparent distress at this time. No changes from rr5 previously documented assessment. second unit of PRBC started. 02:30 Reassessment: Patient appears in no apparent distress at this time. No changes from rr5 previously documented assessment. Patient is alert, oriented x 3, equal unlabored respirations, skin warm/dry/pink. ongoing second unit BT, no complaints made. 03:00 Reassessment: Patient appears in no apparent distress at this time. resting eyes closed rr5 breathing spontaneously at room air. 03:30 Reassessment: Patient appears in no apparent distress at this time. Patient is alert, rr5 oriented x 3, equal unlabored respirations, skin warm/dry/pink. discharge instruction given and explained without complaints made. Vital Signs: 09/16 16:44 BP 137 / 90; Pulse 88; Resp 16 S; Temp 97.6(TE); Pulse Ox 100% on R/A; Weight 80.74 kg ca1 (R); Height 5 ft. 3 in. (160.02 cm) (R); Pain 0/10; 18:46 BP 132 / 82; Pulse 84; Resp 16 S; Pulse Ox 100% on R/A; jl7 18:53 BP 132 / 82 Supine; Pulse 74; lt1 18:53 BP 132 / 87 Sitting; Pulse 78; lt1 18:53 BP 134 / 91 Standing; Pulse 85; Resp 17; Pulse Ox 100% ; lt1 19:35 BP 132 / 93; Pulse 80; Resp 16; Temp 98; Pulse Ox 99% ; rr5 20:30 BP 125 / 78; Pulse 86; Resp 19; Pulse Ox 98% on R/A; rr5 21:40 BP 120 / 79; Pulse 80; Resp 16; Pulse Ox 100% ; rr5 22:30 BP 121 / 79; Pulse 78; Resp 16; Pulse Ox 100% on R/A; rv 22:45 BP 121 / 79; Pulse 79; Resp 16; Temp 98.5; Pulse Ox 99% ; rr5 23:00 BP 131 / 81; Pulse 75; Resp 15; Pulse Ox 100% on R/A; rv 09/17 03:31 BP 97 / 67; Pulse 67; Resp 16; Temp 98.3; Pulse Ox 100% on R/A; rv 09/16 16:44 Body Mass Index 31.53 (80.74 kg, 160.02 cm) ca1 09/16 22:45 first unit of PRBC started, please see transfusion record rr5 ED Course: 16:39 Patient arrived in ED. as 16:40 Albert Leach DO is Private Physician. as 16:48 Triage completed. ca1 16:48 Arm band placed on right wrist. ca1 17:46 Valerio Salter PA is PHCP. cp 17:46 Georgette Lamas MD is Attending Physician. cp 18:35 Desirae Leo, BRI is Primary Nurse. jl7 18:36 Initial lab(s) drawn, by ar, sent to lab. Inserted saline lock: 22 gauge in right lt1 antecubital area, using aseptic technique. 18:46 Patient has correct armband on for positive identification. Placed in gown. Bed in low jl7 position. Call light in reach. Side rails up X2. case monitor on. Pulse ox on. NIBP on. Warm blanket given. 18:54 EKG done, by ED staff. lt1 20:05 Assist provider with pelvic exam: Set up pelvic tray. Performed by Valerio DUARTE rr5 Patient tolerated well. accompanied by kelly library information technician. 09/17 00:43 Valerio Torres MD is Attending Physician. cp 00:47 Ariella Spears MD is Referral Physician. cp 03:32 IV discontinued, intact, bleeding controlled, No redness/swelling at site. Pressure rv dressing applied. Administered Medications: 09/16 21:23 Drug: DepoProvera - medroxyPROGESTERone 150 mg Route: IM; Site: left deltoid; rr5 09/17 03:31 Follow up: Response: No adverse reaction rv Medication: 09/16 22:40 Blood products: PRBCs X 1 unit given. type A positive expiration 10/04/2019, blood rr5 component number [id number]. See transfusion record. 09/17 01:25 Blood products: PRBCs X 1 unit given. type A positive, expiration date 10/04/2019, blood rr5 component number [id number], admin lot number [id number], See transfusion record. Intake: 00:54 IV: 330ml (Blood Products); Total: 330ml. rr5 03:15 IV: 300ml (Blood Products); Total: 630ml. rr5 Outcome: 00:48 Discharge ordered by MD. cp 03:31 Discharged to home ambulatory. rv 03:31 Condition: improved 03:31 Discharge instructions given to patient, Instructed on discharge instructions, follow up and referral plans. Demonstrated understanding of instructions, follow-up care. 03:32 Patient left the ED. rv Signatures: Quynh Dunne Corey, PA PA cp Leal, Jahala, RN RN jl7 Hai Aldana RN RN rv Lenin Noland RN RN rr5 Babita Mcgovern RN RN ca1 Darcy James 1
[2019-09-18] MEDS ORDERED: NA CHLORIDE 0.9% 250 ML ONE (01:04)
[2019-09-18 04:12] VITALS: O2SAT 100
[2019-09-18 04:13] VITALS: BP 97/67; TEMP 98.3
--- NOTE | 2019-09-18 08:24 | EKG ---
Test Date: 2019-09-17 Test Time: 18:45:01 Exploration Manager: AIDEN MEASUREMENT RESULTS: Intervals: Rate: 75 GA: 126 QRSD: 76 QT: 426 QTc: 475 [place]: P: 32 GA: 126 QRS: 9 T: 7 INTERPRETIVE STATEMENTS: Normal sinus rhythm Cannot rule out Anterior infarct, age undetermined Abnormal ECG No previous ECG available for comparison Electronically Signed On 09-18-19 08:22:23 CDT by Luis Montes
== END 2019-09-18 03:32 | disposition home or self-care (01) ==
LOC: ER 16:38
PROC: 30233N1 Transfusion of Nonautologous Red Blood Cells into Peripheral Vein, Percutaneous Approach (ICD-10-PCS; principal; 2019-09-18)
DX: D64.9 Anemia, unspecified (principal); I10 Essential (primary) hypertension
CPT/HCPCS: 93005; 85025; 80048; 36415; 86900; 83735; 86850; 81025; 85610; 86901; 85730; 81003; 36430 ×2; 96372; 99285; J1050; P9016 ×2; J7030 ×2

== ENCOUNTER 2019-10-22 06:30 | Day surgery (SDC) | payer BC ==
--- OUTSIDE RECORDS SUMMARY | 2019-10-22 06:32 | XMS REPORT | Continuity of Care Document ---
:1970 Author Organization [facility] t Address [address] [place] [address] Care Team Providers Name Role Phone Asked, Pcp Primary Care Physician Unavailable Lulu MORRIS RFidelia Attending Clinician Payers Payer Name Policy Type Policy Number Effective Date Expiration Date S jhoana BCBSBCBS xxxxxxxxxxxx 2018 [place] CHOICE 00:00:00 [employer] PPO/FEDERAL EMPL PPOxxxxxxxxxxx 2018-Pres entPPO Problems This patient has no known problems. Allergies, Adverse Reactions, Alerts This patient has no known allergies or adverse reactions. Social History Social Habit Start Date Stop Date Quantity Comments Source Sex Assigned At [facility] ethodi Alcohol intake 2019-05-27 2019-05-27 Current drinker [place] [facility] 00:00:00 00:00:00 of alcohol (finding) Alcohol Comment 2019-05-27 2019-05-27 social [facility] ethodist 00:00:00 00:00:00 Smoking Status Start Date Stop Date Source Former smoker 2019-05-27 00:00:00 2019-05-27 00:00:00 [facility] Medications Ordered Filled Start Stop Current Ordering Indication Dosage Frequency Signature Comments Components Source Medication Medication Date Date Medication? Clinician (SIG) Name Name ondansetron 2020- No 4mg Q8H Take 1 Karol ston (ZOFRAN) 4 05-27 02 tablet (4 Met hodi MG tablet 00:00: 23:59 mg total) st 00 :00 by mouth every 8 (eight) hours as needed for nausea or vomiting for up to 10 days. oseltamivir 2019- No 75mg Q.5D Take 1 Karol ston (TAMIFLU) 05-27 capsule Method i 75 MG 00:00: 23:59 ([address] capsule 00 :00 total) by mouth 2 (two) times a day for 5 days. Vital Signs Vital Name Observation Time Observation Value Comments Source Systolic blood 2019-05-27 16:30:00 113 mm[Hg] Edilma Houston pressure Diastolic blood 2019-05-27 16:30:00 63 mm[Hg] Jol[place] on [employer] pressure Heart rate 2019-05-27 16:30:00 102 /min Alberto Houston Respiratory rate 2019-05-27 16:30:00 19 /min Karen Houston Oxygen saturation in 2019-05-27 16:30:00 95 /min Alberto Houston Arterial blood by Pulse oximetry Body temperature 2019-05-27 16:00:00 37.5 Silvina Karen Houston Body height 2019-05-27 10:46:00 160 cm Alberto Houston Body weight 2019-05-27 10:46:00 77.11 kg Alberto Houston BMI 2019-05-27 10:46:00 30.11 kg/m2 Alberto Houston Procedures Procedure Date / Time Performing Clinician Source Performed ECG ED PRELIMINARY 2019-05-27 13:35:41 Alberto Lawson ethodist INTERPRETATION Kayden Rich XR CHEST 1 VW PORTABLE 2019-05-27 13:15:15 ErnaAniket Arthur [place] INFLUENZA ANTIGEN 2019-05-27 12:05:00 ErnaAniketjai Houston HC COMPLETE BLD COUNT 2019-05-27 11:24:00 Edilma Lawson W/AUTO DIFF Kayden Rich COMPREHENSIVE METABOLIC 2019-05-27 11:24:00 Karen aLwson PANEL Kayden Rich ESTIMATED GFR 2019-05-27 11:24:00 Alberto Lawson Meth annmarie Monique RFidelia SMEAR REVIEW 2019-05-27 11:24:00 Alberto Lawson Meth annmarie Rich ECG 12-LEAD 2019-05-27 10:42:05 Allan Meyer [facility] Plan of Care Planned Activity Planned Date Details Comments Source Future Scheduled 2019-12-04 INFLUENZA VACCINE Edilma Houston Test 00:00:00 [code = INFLUENZA VACCINE] Future Scheduled 1993 Screening for [place] [facility] Test 00:00:00 malignant neoplasm of cervix (procedure) [code = 517831778] Encounters Start End Encounter Admission Attending Care Care Encounter Source Date/Time Date/Time Type Type Clinicians Facility Department ID 2019-05-27 2019-05-27 Emergency [facility] [id number] [place] 00:00:00 00:00:00 RI, [address] Results Test Description Test Time Test Comments Results Result Comments Source ECG 12 lead 2019-05-28 21:03:40 Test Item Value Reference Range Interpretation Comme nts Ventricular rate (test code = 253) 122 Atrial rate (test code = 255) 122 NC interval (test code = 266) 122 QRSD [...] T wave abnormality-Abnormal ECG-No previous ECGs available- [place] [facility] Preliminary Interpretation - Not an [id number] 13:35:41 Test Item Value Reference Range Interpretation Comments KRISTY (test code = KRISTY) Kayden Lawson MD 06/01/2019 8:41 [facility]G ED Preliminary Interpretation - Not an OrderPerformed by: Kayden Lawson MDAuthorized by: Kayden Lawson MD ECG reviewed by ED Physician in the absence of a opto mechanical engineer: yes Interpretation: Interpretation: abnormal Rate: ECG rate: 122 ECG rate assessment: tachycardic Rhythm: Rhythm: sinus tachycardia QRS: QRS axis: Normal QRS intervals: NormalConduction: Conduction: normal ST segments: ST segments: Non-specific Depression: V4, V5 and V6T waves: T waves: normal Lab Interpretation Abnormal (test code = 96315-1) [place] MethodistXR Chest 1 Vw [id number] 13:22:23Hm Interface, Radiology Results - 05/27/2019 1:25 PM CSTEXAMINATION: XR CHEST 1 VW PORTABLEINDICATION: SOBCOMPARISON: NoneIMPRESSION:Low lung volumes. No confluent airspace disease or overt pulmonary edema. No pleural effusion or pneumothorax.Cardiomediastinal silhouette is within normal limits accounting for portable technique, patient body habitus, and low lung volumes.[id number] [place] MethodistInfluenza [id number] 13:14:13 Test Item Value Reference Range Interpretation Comments Influenza Negative for Specimen antigen (test Influenza A/B InformationSp ecimen code = 26129-5) antigen. [facility]: Right [place] MethodistSmear [id number] 12:52:26 Test Item Value Reference Range Interpretation Comments Platelet slide review (test code = Increased A 07691-0) Anisocytosis (test code = 702-1) Moderate Polychromasia (test code = Moderate 50864-3) Target cells (test code = 54705-8) Moderate A Ovalocytes (test code = 774-0) Moderate Enlarged platelets (test code = Moderate A 00040-7) Giant platelets (test code = Occasional 5908-9) Toxic granulation (test code = Slight 803-7) Lab Interpretation (test code = Abnormal 85705-8) [place] MethodistComprehensive metabolic [id number] 12:00:19 Test Item Value Reference Range Interpretation Comments Sodium (test code = 138 135- 148 mEq/L 2951-2) Potassium (test code = 3.7 3.5- 5.0 mEq/L 2823-3) Chloride (test code = 100 98- 112 mEq/L 5-0) CO2 (test code = 2027-9) 22 24- 31 mEq/L L Anion gap (test code = 16@ANIO 7- 15 mEq/L H 79123-2) BUN (test code = 3094-0) 7 mg/dL 6-20 Creatinine (test code = 0.77 mg/dL 0.5-0.9 2160-0) Glucose (test code = 139 mg/dL 65-99 H 2345-7) Calcium (test code = 8.2 mg/dL 8.3-10.2 L 90508-4) Protein (test code = 7.6 g/dL 6.3-8.3 9994.6-7.0 2885-2) g/dL1 xfhm6955.4-7.6 g/dL7 months-1fsjl182 .1- 7.3 g/dL1-2 .6-7.5 g/dL>3 boqqz868.0-8.0 g/iX38-6971264. 3-8 .3 g/dL Albumin (test code = 3.4 g/dL 3.5-5 L 1751-7) A/G ratio (test code = 0.8 0.7-3.8 1759-0) Alkaline phosphatase 100 U/L 35-104 (test code = 6768-6) AST (test code = 1920-8) 50 U/L 10-35 H ALT (test code = 1742-6) 16 U/L 5-50 Total bilirubin (test 1.8 mg/dL 0-1.2 H code = 1974-) Lab Interpretation (test Abnormal code = 55480-5) [facility] MethodistEstimated [id number] 12:00:19 Test Item Value Reference Range Interpretation Comments Estimated GFR (test >=90 mL/min/1.73 m2 Caterg ory Units code = 5488) InterpretationG 1 >=90 Normal or highG2 60-89 Mildly rcfkefncnA3d 45-59 Mildly to mode rately ngxpqdhbuR1q 30-44 Moderately to severely decreasedG4 15-29 Severely decre asedG5 <15 Kidn ey failureThe eGFR was calculated raymundo g the Chronic Kidney Disease Epidemiology Co llaboration (CKD-EPI) equat ion. Interpretation is based on recommendations of the National Kidney Foundation-Kidn ey Disease Outcomes Qualit y Initiative (NKF-KDOQI) pub lished in 2014. [facility] MethodistCBC with platelet and [id number] 11:36:54 Test Item Value Reference Range Interpretation Comments WBC (test code = 56095-9) 8.91 4.50- 11.00 k/uL RBC (test code = 25551-7) 4.13 m/uL 4.2-5.5 L HGB (test code = 718-7) 7.2 g/dL 12-16 L HCT (test code = 4544-3) 28.4 % 37-47 L MCV (test code = 787-2) 68.8 fL 82-100 L MCH (test code = 785-6) 17.4 pg 27-34 L MCHC (test code = 786-4) 25.4 g/dL 31-37 L RDW - SD (test code = 43.8 fL 37-55 27348-3) MPV (test code = 20116-6) 10.0 fL 8.8-13.2 Platelet count (test code 458 150- 400 k/uL H = 84029-7) Nucleated RBC (test code 0.00 /100 WBC = 42838-2) Neutrophils (test code = 90.2 % 39-69 H 18362-2) Lymphocytes (test code = 3.7 % 25-45 L 48249-7) Monocytes (test code = 4.2 % 0-10 00656-1) Eosinophils (test code = 1.2 % 0-5 81754-8) Basophils (test code = 0.3 % 0-1 84116-3) Immature granulocytes 0.4 % 0-1 "Immat ure (test code = 80153-0) granul ocytes" (promyelocytes, myelocytes, metamyelocytes) Lab Interpretation (test Abnormal code = 27504-8) Alberto Houston
--- OUTSIDE RECORDS SUMMARY | 2019-10-22 06:32 | XMS REPORT | Clinical Summary ---
:1970 Author Organization [facility] Address [address] [place] [address] Care Team Providers Name Role Phone Asked, [...] Rich MD respiratory infection) (Primary Dx) after 10/21/2018 Social History Tobacco Use Types Packs/Day Years [...] Comments Blood Pressure 113/63 05/27/2019 4:30 PM PATENT EXAMINER Pulse 102 05/27/2019 4:30 PM PATENT EXAMINER Temperature 37.5 C (99.5 F) 05/27/2019 4:00 PM PATENT EXAMINER Respiratory Rate 19 05/27/2019 4:30 PM PATENT EXAMINER Oxygen Saturation 95% 05/27/2019 4:30 PM PATENT EXAMINER Inhaled Oxygen Concentration - - Weight 77.1 kg (170 lb) 05/27/2019 10:46 AM PATENT EXAMINER Height 160 cm (5' 3") 05/27/2019 10:46 AM PATENT EXAMINER Body Mass Index 30.11 05/27/2019 10:46 AM PATENT EXAMINER Plan of Treatment Health Maintenance Due Date Last Done Comments CERVICAL CANCER SCREENING 1991 INFLUENZA VACCINE 12/04/2019 Procedures Procedure Name Priority Date/Time Associated Comments Diagnosis ECG ED PRELIMINARY Routine 05/27/2019 1:35 Resul ts for this INTERPRETATION PM PATENT EXAMINER procedure are in the results section. XR CHEST 1 VW PORTABLE STAT 05/27/2019 1:15 R esults for this PM PATENT EXAMINER procedure are i n the results section. INFLUENZA ANTIGEN STAT 05/27/2019 12:05 Result s for this PM PATENT EXAMINER procedure are i n the results section. SMEAR REVIEW STAT 05/27/2019 11:24 Results for this AM PATENT EXAMINER procedure are i n the results section. ESTIMATED GFR STAT 05/27/2019 11:24 Results fo r this AM PATENT EXAMINER procedure are i n the results section. COMPREHENSIVE METABOLIC STAT 05/27/2019 11:24 Results for this PANEL AM PATENT EXAMINER procedure are i n the results section. HC COMPLETE BLD COUNT STAT 05/27/2019 11:24 Re sults for this W/AUTO DIFF AM PATENT EXAMINER procedure are i n the results section. ECG 12-LEAD STAT 05/27/2019 10:42 Results for this AM PATENT EXAMINER procedure are i n the results section. after 10/21/2018 Results ECG ED Preliminary Interpretation - Not an Order (05/27/2019 1:35 PM PATENT EXAMINER) Narrative Performed At Kayden Lawson MD 05/06 8:41 AM ECG ED Preliminary Interpretation - Not an Order Performed by: Kayden Lawson MD Authorized by: Kayden Lawson MD ECG reviewed by ED Physician in the abse nce of a information security manager: yes Interpretation: Interpretation: abnormal Rate: ECG rate: 122 ECG rate assessment: tachycardic Rhythm: Rhythm: sinus tachycardia QRS: QRS axis: Normal QRS intervals: Normal Conduction: Conduction: normal ST segments: ST segments: Non-specific Depression: V4, V5 and V6 T waves: T waves: normal XR Chest 1 Vw Portable (05/27/2019 1:15 PM PATENT EXAMINER) Specimen Narrative Performed At EXAMINATION: XR CHEST 1 VW PORTABLE [facility] INDICATION: SOB COMPARISON: None IMPRESSION: Low lung volumes. No confluent airspace disease or ove rt pulmonary edema. No pleural effusion or pneumothor ax. Cardiomediastinal silhouette is within normal limits a ccounting for portable technique, patient body habitus , and low lung volumes. [id number] Procedure Note Hm Interface, Radiology Results Incoming - 05/27/2019 1:25 PM PATENT EXAMINER EXAMINATION: XR CHEST 1 VW PORTABLE INDICATION: SOB COMPARISON: None IMPRESSION: Low lung volumes. No confluent airspace disease or overt pulmonary edema. No pleural effusion or pneumothorax. Cardiomediastinal silhouette is within n ormal limits accounting for portable technique, patient body habitus, and low lung volumes. [id number] Performing Organization Address [facility] Phone Number [facility] [address] [place] [phone] Influenza antigen (05/27/2019 12:05 PM PATENT EXAMINER) Pathologist [facility] Influenza antigen Negative for Influenza A/B antigen. [facility] Comment: HOSPITAL Specimen Information Specimen Source: Nares Specimen Site: Right Specimen Nares - Right Performing Organization Address [facility] Phone Number [facility] DEPARTMENT OF PATHOLOGY AND [address] [place] [phone] Smear review (05/27/2019 11:24 AM PATENT EXAMINER) [facility] Platelet slide review Increased (A) [facility] Anisocytosis Moderate [facility] Polychromasia Moderate [facility] Target cells Moderate (A) [facility] Ovalocytes Moderate [facility] Enlarged platelets Moderate (A) [facility] Giant platelets Occasional [facility] Toxic granulation Slight [facility] Specimen Performing Organization Address [facility] Phone [facility] DEPARTMENT OF PATHOLOGY AND [address] [place] [address] [phone] [address] Estimated GFR (05/27/2019 11:24 AM PATENT EXAMINER) [facility] Estimated GFR >=90 mL/min/1.73 [facility] Comment: HOSPITAL Catergory Units Interpretation G1 >=90 [...] specimen Performing Organization Address City/State/Zipcode Phone Number [facility] DEPARTMENT OF PATHOLOGY AND [address] [place] [address] [phone] [address] CBC with platelet and differential (05/27/2019 11:24 AM PATENT EXAMINER) WBC 8.91 4.50 - 11.00 [facility] k/uL HOSPITAL RBC 4.13 (L) 4.20 - 5.50 [facility] m/uL HOSPITAL HGB 7.2 (L) 12.0 - 16.0 [facility] g/dL [facility] HCT 28.4 (L) 37.0 - 47.0 % [facility] MCV 68.8 (L) 82.0 - 100.0 [facility] MCH 17.4 (L) 27.0 - 34.[address] [facility] MCHC 25.4 (L) 31.0 - 37.0 [facility] g/dL [facility] RDW - SD 43.8 37.0 - 55.[address] [facility] MPV 10.0 8.8 - 13.[address] [facility] Platelet count 458 (H) 150 - 400 k/uL [facility] Nucleated RBC 0.00 /[address] [facility] Neutrophils 90.2 (H) 39.0 - 69.0 % [facility] Lymphocytes 3.7 (L) 25.0 - 45.0 % [facility] Monocytes 4.2 0.0 - 10.0 % [facility] Eosinophils 1.2 0.0 - 5.0 % [facility] Basophils 0.3 0.0 - 1.0 % [facility] Immature granulocytes 0.4Comment: 0.0 - 1.0 % [facility] "Immature [facility] granulocytes" (promyelocytes , myelocytes, metamyelocytes ) Specimen Blood Performing Organization Address City/State/Zipcode Phone Number [facility] DEPARTMENT OF PATHOLOGY AND [address] [place], [place] [phone] [address] Comprehensive metabolic panel (05/27/2019 11:24 AM PATENT EXAMINER) Sodium 138 135 - 148 [facility] mEq/L [facility] Potassium 3.7 3.5 - 5.0 [facility] mEq/L [facility] Chloride 100 98 - 112 mEq/L [facility] CO2 22 (L) 24 - 31 mEq/L [facility] Anion gap 16@ANIO (H) 7 - 15 mEq/L [facility] BUN 7 6 - 20 mg/dL [facility] Creatinine 0.77 0.50 - 0.90 [facility] mg/dL HOSPITAL Glucose 139 (H) 65 - 99 mg/dL [facility] Calcium 8.2 (L) 8.3 - 10.2 [facility] mg/dL [facility] Protein 7.6 6.3 - 8.3 g/dL [facility] Comment: HOSPITAL Brcyshb2018.6-7.0 g/dL 1 elnn1517.4-7.6 g/dL 7 months-3xbhh644.1-7.3 g/dL 1-2 .6-7.5 g/dL >3 .0-8.0 g/dL 18-1691808.3-8.3 g/dL Albumin 3.4 (L) 3.5 - 5.0 g/dL [facility] A/G ratio 0.8 0.7 - 3.[address] [facility] Alkaline phosphatase 100 35 - 104 U/L [facility] AST 50 (H) 10 - 35 U/L [facility] ALT 16 5 - 50 U/L [facility] Total bilirubin 1.8 (H) 0.0 - 1.2 [facility] mg/dL [facility] Specimen Plasma specimen Performing Organization Address City/State/Zipcode Phone Number [facility] DEPARTMENT OF PATHOLOGY AND [address], [place] [phone] GENOMIC MEDICINE [address] [address] ECG 12 lead (05/27/2019 10:42 AM PATENT EXAMINER) Pathologist Sig nature Ventricular rate 122 [facility]USE Atrial rate 122 [facility] NH interval 122 [facility] QRSD interval 70 [facility] QT interval 308 [facility] QTC interval 438 [facility] MUSE P axis 1 34 [facility] MUSE QRS axis 1 12 [facility] MUSE T wave axis -1 [facility] MUSE EKG impression Sinus [facility] MUSE tachycardia-Nonspecific ST and T wave abnormality-Abnormal ECG-No previous ECGs available-Electronicall y Signed By Sayda Moore ([id number]) on 05/28/2019 9:03:37 PM Specimen Narrative Performed At This result has an attachment that is no t available. Performing Organization Address City/State/Zipcode Phone Number [facility] YESSY [address] [place] [address] after 10/21/2018 Advance Directives For more information, please contact: [phone] Type Date Recorded Patient Prescription Clerk Explanati on Advance Directives, Living Will and Medical Power of Pantograph Transferrer
[2019-10-22] MEDS ORDERED: Ringers Lactate 1,000 ML IV ONE ×2 (06:47→08:25)
[2019-10-22 07:15] LABS: Hematocrit 30.5 % (36.0-45.0)
[2019-10-22] MEDS ORDERED: NOREPINEPHRINE 4 MG/4 ML VIAL ONE (07:21)
[2019-10-22] MEDS ORDERED: propofoL 200 MG/20 ML VIAL IV ONE (07:24)
[2019-10-22] MEDS ORDERED: FENTANYL CITR 100 MCG/2 ML ONE (07:25)
[2019-10-22] MEDS ORDERED: MIDAZOLAM HCL 2 MG/2 ML INJ ONE (07:25)
[2019-10-22] MEDS ORDERED: LIDOCAINE 2% MPF 5 ML VIAL ONE (07:25)
[2019-10-22] MEDS ORDERED: KETOROLAC 30 MG/ML INJ ONE ×2 (07:25→14:08)
[2019-10-22] MEDS: CEFAZOLIN/SWI 1gm 2 GM/20 ML SYR ONE ×2 (07:27→12:50)
[2019-10-22] MEDS ORDERED: NS 0.9% VIAL 30 ML ONE (07:35)
[2019-10-22] MEDS ORDERED: LIDOCAINE 1% W/EPI 1:100,000 MDV 20 ML VIAL ONE (07:49)
[2019-10-22] MEDS ORDERED: POTASSIUM CL SA 10 MEQ TAB PO ONE (08:15)
[2019-10-22] MEDS ORDERED: POTASSIUM CL 40 MEQ in NA CHLORIDE 0.9% 500 ML IV ONE (08:15)
[2019-10-22] MEDS ORDERED: NA CHLORIDE 0.9% 1,000 ML ONE (12:26)
[2019-10-22] MEDS ORDERED: SILVER NITRATE 1 APPL TOP ONE (12:27)
[2019-10-22] MEDS ORDERED: NA CHLORIDE 0.9% 50 ML ONE (12:34)
[2019-10-22] MEDS ORDERED: dexAMETHasone 10 MG/ML VIAL ONE (13:11)
[2019-10-22] MEDS ORDERED: ONDANSETRON 4 MG/2 ML VIAL ONE (13:12)
--- NOTE | 2019-10-22 13:28 | P.BOP ---
Preoperative diagnosis: Menorrhagia with anemia Postoperative diagnosis: same, posterior endometrial polyp Primary procedure: hysteroscopy, D&C, Novasure ablation Estimated blood loss: Less than 10ml Specimen: endometrial currete Anesthesia: MAC Complications: None Transferred to: Recovery Room Condition: Good
[2019-10-22] MEDS ORDERED: PROMETHAZINE 25 MG TABLET PO PRN (13:29)
[2019-10-22] MEDS ORDERED: KETOROLAC 30 MG/ML INJ IV PRN (13:29)
[2019-10-22] MEDS ORDERED: HYDROCODONE/APAP 5/325 MG TAB PO PRN (13:29)
[2019-10-22] MEDS: HYDROMORPHONE HCL 1 MG/ML INJ ONE ×2 (13:39→13:50)
[2019-10-22 14:08] VITALS: O2SAT 94
[2019-10-22] MEDS ORDERED: HYDROMORPHONE HCL 2 MG/ML inj ONE (14:08)
[2019-10-22 14:11] VITALS: BP 120/73; TEMP 98
[2019-10-22] MEDS ORDERED: Oxycodone HCl/Acetaminophen 1 TAB TAB ONE (14:52)
--- NOTE | 2019-10-23 13:02 | OP ---
Surgeon: Donta Carrera MD Preoperative Diagnoses: Menorrhagia with anemia requiring transfusion, hypokalemia corrected. Procedures: Hysteroscopy, dilatation and curettage of uterine endometrium, NovaSure endometrial abla tion. Description Of Procedure: After a satisfactory level of general anesthesia was obtained, patient pre pped and draped in the usual fashion in high leg holders. A weighted speculum was placed in posterio r vagina. Cervix visualized, grasped with a single-tooth tenaculum. Hysteroscope introduced, visual ization of the canal and the endometrium revealed no abnormalities other than a relatively flat and p osterior uterine endometrial polyp. Otherwise the lining repaired is relatively atrophic. The polyp was removed. The hysteroscope removed. Curettage of the endometrium with emphasis on posterior wal l of endometrium was performed. No additional tissue was noted. The NovaSure device was inserted wi th a cavity length of 5.5 cm with a 4.5 cm power, I believe 160 coleman and the duration of ablation of 37 seconds was utilized with good charge noted. The patient was awakened, taken to recovery room in satisfactory condition. SANDI/ABIODUNL Voice ID: [id number] Report ID: [id number]
--- NOTE | 2019-10-23 13:03 | DS ---
Date of Discharge: 10/22/2019 Final Hospital Discharge Diagnoses: Menorrhagia with anemia, hypokalemia. Complications: None. Procedures: Hysteroscopy, dilatation and curettage of uterine endometrium, NovaSure endometrial abla tion. Hospital Course: The patient is a 49-year-old female, admitted for a treatment of menorrhag ia, noted to have hypokalemia. This was corrected. She underwent hysteroscopy, dilatation and curet tage of the uterine endometrium and NovaSure endometrial ablation. The posterior polyp was noted in the endometrium, which was excised. The patient was dismissed with prescription for Tylenol No.3, #1 0 with usual post D and C activity restrictions and to see Dr. Spears in followup. SANDI/NABOR Voice ID: [id number] Report ID: [id number]
== END 2019-10-22 15:30 | disposition home or self-care (01) ==
LOC: OR 06:30
PROVIDERS: ATTEND Obstetrics & Gynecology
PROC: 0UDB7ZX Extraction of Endometrium, Via Natural or Artificial Opening, Diagnostic (ICD-10-PCS; 2019-10-22)
PROC: 0U5B8ZZ Destruction of Endometrium, Via Natural or Artificial Opening Endoscopic (ICD-10-PCS; principal; 2019-10-22 07:30)
DX: N92.1 Excessive and frequent menstruation with irregular cycle (principal); N84.0 Polyp of corpus uteri; D50.9 Iron deficiency anemia, unspecified; E87.6 Hypokalemia; N94.6 Dysmenorrhea, unspecified; K59.00 Constipation, unspecified; G47.33 Obstructive sleep apnea (adult) (pediatric); Z11.59 Encounter for screening for other viral diseases; Z80.3 Family history of malignant neoplasm of breast; Z80.0 Family history of malignant neoplasm of digestive organs
CPT/HCPCS: 36415; 81025; 84132 ×2; 88305; 85014; 85018; 58563; U0002; J2704; J2250; J1170 ×2; J3010; J1100; J0690; J7120 ×2; J7040; J7030; J2405

== ENCOUNTER 2019-12-14 06:39 | Day surgery (SDC) | payer BC ==
[2019-12-08 16:50] LABS: Urine Appearance CLOUDY; Urine Blood 3+ (NEG); Urine Color DK YELLOW; Urine Glucose NEGATIVE (NEG); Urine Protein 1+ (NEG); Urine Specific Gravity >=1.030 (1.005-1.030)
[2019-12-08 16:56] LABS: Urine Bilirubin 1+ (NEG); Urine Microscopic Reflex ORDER UMIC
[2019-12-08 17:25] LABS: Basophils % 1.2 % (0-1.3); Hematocrit 31.7 % (36.0-45.0); Lymphocytes % 22.8 % (15.3-44.8); MPV 8.8 fL (7.6-11.3); RBC Red Blood Cell Count 4.79 M/uL (3.86-4.86)
[2019-12-08 17:29] LABS: Urine Bacteria >50 /HPF (<20); Urine Culture Reflex Order REFLEXED; Urine RBC 20-50 /HPF (NONE SEEN)
[2019-12-08 17:52] LABS: Anisocytosis 1+; Blood Morphology Comment NOTED (NOT SEEN); Hypochromasia 2+; Platelet Estimate ADEQ; Stomatocytes 1+; Urine White Blood Cell Casts OK
--- OUTSIDE RECORDS SUMMARY | 2019-12-14 06:42 | XMS REPORT | Clinical Summary ---
:1970 Author Organization [facility] Address [address] [place] [address] Care Team Providers Name Role Phone Asked, [...] Care Team Description 05/27/2019 Emergency Emergency Medicine DEEAN Lawson (jaki Rich MD respiratory infection) (Primary Dx) after 12/13/2018 Social History Tobacco Use Types Packs/Day Years [...] Comments Blood Pressure 113/63 05/27/2019 4:30 PM PRINTS AND DRAWINGS CURATOR Pulse 102 05/27/2019 4:30 PM PRINTS AND DRAWINGS CURATOR Temperature 37.5 C (99.5 F) 05/27/2019 4:00 PM PRINTS AND DRAWINGS CURATOR Respiratory Rate 19 05/27/2019 4:30 PM PRINTS AND DRAWINGS CURATOR Oxygen Saturation 95% 05/27/2019 4:30 PM PRINTS AND DRAWINGS CURATOR Inhaled Oxygen Concentration - - Weight 77.1 kg (170 lb) 05/27/2019 10:46 AM PRINTS AND DRAWINGS CURATOR Height 160 cm (5' 3") 05/27/2019 10:46 AM PRINTS AND DRAWINGS CURATOR Body Mass Index 30.11 05/27/2019 10:46 AM PRINTS AND DRAWINGS CURATOR Plan of Treatment Health Maintenance Due Date Last Done Comments CERVICAL CANCER SCREENING 1993 INFLUENZA VACCINE 12/04/2019 Procedures Procedure Name Priority Date/Time Associated Comments Diagnosis ECG ED PRELIMINARY Routine 05/27/2019 1:35 Resul ts for this INTERPRETATION PM PRINTS AND DRAWINGS CURATOR procedure are in the results section. XR CHEST 1 VW PORTABLE STAT 05/27/2019 1:15 R esults for this PM PRINTS AND DRAWINGS CURATOR procedure are i n the results section. INFLUENZA ANTIGEN STAT 05/27/2019 12:05 Result s for this PM PRINTS AND DRAWINGS CURATOR procedure are i n the results section. SMEAR REVIEW STAT 05/27/2019 11:24 Results for this AM PRINTS AND DRAWINGS CURATOR procedure are i n the results section. ESTIMATED GFR STAT 05/27/2019 11:24 Results fo r this AM PRINTS AND DRAWINGS CURATOR procedure are i n the results section. COMPREHENSIVE METABOLIC STAT 05/27/2019 11:24 Results for this PANEL AM PRINTS AND DRAWINGS CURATOR procedure are i n the results section. HC COMPLETE BLD COUNT STAT 05/27/2019 11:24 Re sults for this W/AUTO DIFF AM PRINTS AND DRAWINGS CURATOR procedure are i n the results section. ECG 12-LEAD STAT 05/27/2019 10:42 Results for this AM PRINTS AND DRAWINGS CURATOR procedure are i n the results section. after 12/13/2018 Results ECG ED Preliminary Interpretation - Not an Order (05/27/2019 1:35 PM PRINTS AND DRAWINGS CURATOR) Narrative Performed At Kayden Lawson MD 05/06 8:41 AM ECG ED Preliminary Interpretation - Not an Order Performed by: Kayden Lawson MD Authorized by: Kayden Lawson MD ECG reviewed by ED Physician in the abse nce of a third mate: yes Interpretation: Interpretation: abnormal Rate: ECG rate: 122 ECG rate assessment: tachycardic Rhythm: Rhythm: sinus tachycardia QRS: QRS axis: Normal QRS intervals: Normal Conduction: Conduction: normal ST segments: ST segments: Non-specific Depression: V4, V5 and V6 T waves: T waves: normal XR Chest 1 Vw Portable (05/27/2019 1:15 PM PRINTS AND DRAWINGS CURATOR) Specimen Narrative Performed At EXAMINATION: XR CHEST 1 VW PORTABLE HM [facility] INDICATION: SOB COMPARISON: None IMPRESSION: Low lung volumes. No confluent airspace disease or ove rt pulmonary edema. No pleural effusion or pneumothor ax. Cardiomediastinal silhouette is within normal limits a ccounting for portable technique, patient body habitus , and low lung volumes. [id number] Procedure Note Hm Interface, Radiology Results Incoming - 05/27/2019 1:25 PM PRINTS AND DRAWINGS CURATOR EXAMINATION: XR CHEST 1 VW PORTABLE INDICATION: SOB COMPARISON: None IMPRESSION: Low lung volumes. No confluent airspace disease or overt pulmonary edema. No pleural effusion or pneumothorax. Cardiomediastinal silhouette is within n ormal limits accounting for portable technique, patient body habitus, and low lung volumes. [id number] Performing Organization Address [facility] Phone Number [facility] [address] [place] [phone] Influenza antigen (05/27/2019 12:05 PM PRINTS AND DRAWINGS CURATOR) Pathologist [facility] Influenza antigen Negative for Influenza A/B antigen. [facility] Comment: HOSPITAL Specimen Information Specimen Source: Nares Specimen Site: Right Specimen Nares - Right Performing Organization Address [facility] Phone Number [facility] DEPARTMENT OF PATHOLOGY AND [address] [place] [phone] Smear review (05/27/2019 11:24 AM PRINTS AND DRAWINGS CURATOR) [facility] Platelet slide review Increased (A) [facility] Anisocytosis Moderate [facility] Polychromasia Moderate [facility] Target cells Moderate (A) [facility] Ovalocytes Moderate [facility] Enlarged platelets Moderate (A) [facility] Giant platelets Occasional [facility] Toxic granulation Slight [facility] Specimen Performing Organization Address [facility] Phone Number [facility] DEPARTMENT OF PATHOLOGY AND [address] [place] [address] [phone] [address] Estimated GFR (05/27/2019 11:24 AM PRINTS AND DRAWINGS CURATOR) [facility] Estimated GFR >=90 mL/min/1.73 [facility] Comment: HOSPITAL Catergory Units Interpretation G1 >=90 [...] specimen Performing Organization Address City/State/Zipcode Phone Number [facility] DEPARTMENT OF PATHOLOGY AND [address] [place] [address] [phone] [address] CBC with platelet and differential (05/27/2019 11:24 AM PRINTS AND DRAWINGS CURATOR) WBC 8.91 4.50 - 11.00 [facility] k/uL HOSPITAL RBC 4.13 (L) 4.20 - 5.50 [facility] m/uL HOSPITAL HGB 7.2 (L) 12.0 - 16.0 [facility] g/dL [facility] HCT 28.4 (L) 37.0 - 47.0 % [facility] MCV 68.8 (L) 82.0 - 100.0 [facility] MCH 17.4 (L) 27.0 - 34.0 pg [facility] MCHC 25.4 (L) 31.0 - 37.0 [facility] g/dL [facility] RDW - SD 43.8 37.0 - 55.0 fL [facility] MPV 10.0 8.8 - 13.2 fL [facility] Platelet count 458 (H) 150 - 400 k/uL [facility] Nucleated RBC 0.00 /100 WBC [facility] Neutrophils 90.2 (H) 39.0 - 69.0 % [facility] Lymphocytes 3.7 (L) 25.0 - 45.0 % [facility] Monocytes 4.2 0.0 - 10.0 % [facility] Eosinophils 1.2 0.0 - 5.0 % [facility] Basophils 0.3 0.0 - 1.0 % [facility] Immature granulocytes 0.4Comment: 0.0 - 1.0 % [facility] "Immature [facility] granulocytes" (promyelocytes , myelocytes, metamyelocytes ) Specimen Blood Performing Organization Address City/State/Zipcode Phone Number [facility] DEPARTMENT OF PATHOLOGY AND [address], [place] [phone] [address] Comprehensive metabolic panel (05/27/2019 11:24 AM PRINTS AND DRAWINGS CURATOR) Sodium 138 135 - 148 [facility] mEq/L [facility] Potassium 3.7 3.5 - 5.0 [facility] mEq/L [facility] Chloride 100 98 - 112 mEq/L [facility] CO2 22 (L) 24 - 31 mEq/L [facility] Anion gap 16@ANIO (H) 7 - 15 mEq/L [facility] BUN 7 6 - 20 mg/dL [facility] Creatinine 0.77 0.50 - 0.90 [facility] mg/dL HOSPITAL Glucose 139 (H) 65 - 99 mg/dL [facility] Calcium 8.2 (L) 8.3 - 10.2 [facility] mg/dL [facility] Protein 7.6 6.3 - 8.3 g/dL [facility] Comment: HOSPITAL Lhmsare6066.6-7.0 g/dL 1 olro8496.4-7.6 g/dL 7 months-3nrin073.1-7.3 g/dL 1-2 .6-7.5 g/dL >3 odtmg899.0-8.0 g/dL 18-2805208.3-8.3 g/dL Albumin 3.4 (L) 3.5 - 5.0 g/dL [facility] A/G ratio 0.8 0.7 - 3.8 [facility] Alkaline phosphatase 100 35 - 104 U/L [facility] AST 50 (H) 10 - 35 U/L [facility] ALT 16 5 - 50 U/L [facility] Total bilirubin 1.8 (H) 0.0 - 1.2 [facility] mg/dL [facility] Specimen Plasma specimen Performing Organization Address City/State/Zipcode Phone Number [facility] DEPARTMENT OF PATHOLOGY AND [address], [place] [phone] GENOMIC [address]INE [address] [address] ECG 12 lead (05/27/2019 10:42 AM PRINTS AND DRAWINGS CURATOR) Pathologist Sig nature Ventricular rate 122 [facility] Atrial rate 122 [facility] NM interval 122 [facility] QRSD interval 70 [facility] QT interval 308 [facility]USE QTC interval 438 [facility] MUSE P axis 1 34 [facility] MUSE QRS axis 1 12 [facility] MUSE T wave axis -1 [facility] MUSE EKG impression Sinus [facility] MUSE tachycardia-Nonspecific ST and T wave abnormality-Abnormal ECG-No previous ECGs available-Electronicall y Signed By Sayda Moore ([id number]) on 05/28/2019 9:03:37 PM Specimen Narrative Performed At This result has an attachment that is no t available. 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
--- OUTSIDE RECORDS SUMMARY | 2019-12-14 06:43 | XMS REPORT | Continuity of Care Document ---
:1970 Author Organization [facility] t Address [address] [place] [address] Care Team Providers Name Role Phone Asked, Pcp Primary Care Physician Unavailable Lulu MORRIS, RFidelia Attending Clinician Payers Payer Name Policy Type Policy Number Effective Date Expiration Date S jhoana BCBSBCBS xxxxxxxxxxxx 2018 [place] CHOICE 00:00:00 [employer] PPO/[employer] EMPL PPOxxxxxxxxxxx 2018-Pres entPPO Problems This patient has no known problems. Allergies, Adverse Reactions, Alerts This patient has no known allergies or adverse reactions. Social History Social Habit Start Date Stop Date Quantity Comments Source Sex Assigned At [facility] ethodist Alcohol intake 2019-05-27 2019-05-27 Current drinker [place] [facility] 00:00:00 00:00:00 of alcohol (finding) Alcohol Comment 2019-05-27 2019-05-27 social [facility] ethodist 00:00:00 00:00:00 Smoking Status Start Date Stop Date Source Former smoker 2019-05-27 00:00:00 2019-05-27 00:00:00 [facility] Medications Ordered Filled Start Stop Current Ordering Indication Dosage Frequency Signature Comments Components Source Medication Medication Date Date Medication? Clinician (SIG) Name Name ondansetron 2019- No 4mg Q8H Take 1 Karol ston (ZOFRAN) 4 05-2702 tablet (4 Met hodi MG tablet 00:00: 23:59 mg total) st 00 :00 by mouth every 8 (eight) hours as needed for nausea or vomiting for up to 10 days. oseltamivir 75mg Q.5D Take 1 Karol fall (TAMIFLU) 05-27 capsule Method i 75 MG 00:00: 23:59 ([address] capsule 00 :00 total) by mouth 2 (two) times a day for 5 days. Vital Signs Vital Name Observation Time Observation Value Comments Source Systolic blood 2019-05-27 16:30:00 113 mm[Hg] Edilma [place] pressure Diastolic blood 2019-05-27 16:30:00 63 mm[Hg] Jolie Houston pressure Heart rate 2019-05-27 16:30:00 102 /min [...] XR CHEST 1 VW PORTABLE 2019-05-27 13:15:15 Aniket Umanzor INFLUENZA ANTIGEN 2019-05-27 12:05:00 Aniket Umanzor HC COMPLETE BLD COUNT 2019-05-27 11:24:00 Edilma Lawson W/AUTO DIFF Kayden RFidelia COMPREHENSIVE METABOLIC 2019-05-27 11:24:00 Karen Lawson PANEL Kayden RFidelia ESTIMATED GFR 2019-05-27 11:24:00 Alberto Lawson Meth annmarie Monique R. SMEAR REVIEW 2019-05-27 11:24:00 Alberto Lawson Meth aydeeist Kayden R. ECG 12-LEAD 2019-05-27 10:42:05 Allan Meyer Bunch [facility] thodist Plan of Care Planned Activity Planned Date Details Comments Source Future Scheduled 2019-12-04 INFLUENZA VACCINE [place] [facility] Test 00:00:00 [code = INFLUENZA VACCINE] Future Scheduled 1993 Screening for [facility] thodist Test 00:00:00 malignant neoplasm of cervix (procedure) [code = 973149509] Encounters Start End Encounter Admission Attending Care Care Encounter Source Date/Time Date/Time Type Type Clinicians Facility Department ID 2019-05-27 2019-05-27 Emergency [facility] [id number] [place] 00:00:00 00:00:00 RI, [address] Results Test Description Test Time Test Comments Results Result Comments Source ECG 12 lead 2019-05-28 21:03:40 Test Item Value Reference Range Interpretation Comme nts Ventricular rate (test code = 253) 122 Atrial rate (test code = 255) 122 VT interval (test code = 266) 122 QRSD [...] T wave abnormality-Abnormal ECG-No previous ECGs available- [facility] ED Preliminary Interpretation - Not an [id number] 13:35:41 Test Item Value Reference Range Interpretation Comments KRISTY (test code = KRISTY) Kayden Lawson MD 06/01/2019 8:41 [facility] [place] Preliminary Interpretation - Not an OrderPerformed by: Kayden Lawson, [facility]ITAL[facility]horized by: Kayden Lawson MD ECG reviewed by ED Physician in the absence of a speed belt sander tender: yes Interpretation: Interpretation: abnormal Rate: ECG rate: 122 ECG rate assessment: tachycardic Rhythm: Rhythm: sinus tachycardia QRS: QRS axis: Normal QRS intervals: NormalConduction: Conduction: normal ST segments: ST segments: Non-specific Depression: V4, V5 and V6T waves: T waves: normal Lab Interpretation Abnormal (test code = 62368-8) [facility] MethodistXR Chest 1 Vw [id number] 13:22:23Hm Interface, Radiology Results - 05/27/2019 1:25 PM CSTEXAMINATION: XR CHEST 1 VW PORTABLEINDICATION: SOBCOMPARISON: NoneIMPRESSION:Low lung volumes. No confluent airspace disease or overt pulmonary edema. No pleural effusion or pneumothorax.Cardiomediastinal silhouette is within normal limits accounting for portable technique, patient body habitus, and low lung volumes.[id number] [facility] MethodistInfluenza [id number] 13:14:13 Test Item Value Reference Range Interpretation Comments Influenza Negative for Specimen antigen (test Influenza A/B [facility] ecimen code = 40972-4) antigen. Source: [facility] Site: Right [facility] Aleamear [id number] 12:52:26 Test Item Value Reference Range Interpretation Comments Platelet slide review (test code = Increased A 09917-3) Anisocytosis (test code = 702-1) Moderate Polychromasia (test code = Moderate 87035-2) Target cells (test code = 97449-5) Moderate A Ovalocytes (test code = 774-0) Moderate Enlarged platelets (test code = Moderate A 97272-2) Giant platelets (test code = Occasional 5908-9) Toxic granulation (test code = Slight 803-7) Lab Interpretation (test code = Abnormal 47664-9) [facility] SyedistComprehensive metabolic [id number] 12:00:19 Test Item Value Reference Range Interpretation Comments Sodium (test code = 138 135- 148 mEq/L 2951-2) Potassium (test code = 3.7 3.5- 5.0 mEq/L 2823-3) Chloride (test code = 100 98- 112 mEq/L 5-0) CO2 (test code = 2027-9) 22 24- 31 mEq/L L Anion gap (test code = 16@ANIO 7- 15 mEq/L H 53257-1) BUN (test code = 3094-0) 7 mg/dL 6-20 Creatinine (test code = 0.77 mg/dL 0.5-0.9 2160-0) Glucose (test code = 139 mg/dL 65-99 H 2345-7) Calcium (test code = 8.2 mg/dL 8.3-10.2 L 49783-7) Protein (test code = 7.6 g/dL 6.3-8.3 9994.6-7.0 2885-2) g/dL1 aprm9281.4-7.6 g/dL7 months-4rtvo878 .1- 7.3 g/dL1-2 vzuha210.6-7.5 g/dL>3 .0-8.0 g/eA79-1734815. 3-8 .3 g/dL Albumin (test code = 3.4 g/dL 3.5-5 L 1751-7) A/G ratio (test code = 0.8 0.7-3.8 1759-0) Alkaline phosphatase 100 U/L 35-104 (test code = 6768-6) AST (test code = 1920-8) 50 U/L 10-35 H ALT (test code = 1742-6) 16 U/L 5-50 Total bilirubin (test 1.8 mg/dL 0-1.2 H code = 1974-2) Lab Interpretation (test Abnormal code = 62479-5) Alberto MethodistEstimated [id number] 12:00:19 Test Item Value Reference Range Interpretation Comments Estimated GFR (test >=90 mL/min/1.73 m2 Caterg ory Units code = 5488) InterpretationG 1 >=90 Normal or highG2 60-89 Mildly gecbutiptP1m 45-59 Mildly to mode rately ndfuaokaiC6a 30-44 Moderately to severely decreasedG4 15-29 Severely decre asedG5 <15 Kidn ey failureThe eGFR was calculated raymundo coleman the Chronic Kidney Disease Epidemiology Co llaboration (CKD-EPI) equat ion. Interpretation is based on recommendations of the National Kidney Foundation-Kidn ey Disease Outcomes Qualit y Initiative (NKF-KDOQI) pub lished in 2014. [facility] MethodistCBC with platelet and [id number] 11:36:54 Test Item Value Reference Range Interpretation Comments WBC (test code = 43588-9) 8.91 4.50- 11.00 k/uL RBC (test code = 98690-9) 4.13 m/uL 4.2-5.5 L HGB (test code = 718-7) 7.2 g/dL 12-16 L HCT (test code = 4544-3) 28.4 % 37-47 L MCV (test code = 787-2) 68.8 fL 82-100 L MCH (test code = 785-6) 17.4 pg 27-34 L MCHC (test code = 786-4) 25.4 g/dL 31-37 L RDW - SD (test code = 43.8 fL 37-55 26253-0) MPV (test code = 25437-1) 10.0 fL 8.8-13.2 Platelet count (test code 458 150- 400 k/uL H = 99227-1) Nucleated RBC (test code 0.00 /100 WBC = 80553-5) Neutrophils (test code = 90.2 % 39-69 H 42372-2) Lymphocytes (test code = 3.7 % 25-45 L 61339-2) Monocytes (test code = 4.2 % 0-10 93407-9) Eosinophils (test code = 1.2 % 0-5 02577-3) Basophils (test code = 0.3 % 0-1 00843-2) Immature granulocytes 0.4 % 0-1 "Immat ure (test code = 70472-4) granul ocytes" (promyelocytes, myelocytes, metamyelocytes) Lab Interpretation (test Abnormal code = 39218-5) Alberto Houston
[2019-12-14 07:02] LABS: Specific Gravity 1.025 (1.005-1.030)
[2019-12-14] MEDS ORDERED: SCOPOLAMINE HYDROBROMIDE PATCH TD ONE (07:06)
[2019-12-14] MEDS ORDERED: Ringers Lactate 1,000 ML IV ONE ×3 (07:06→11:53)
[2019-12-14] MEDS ORDERED: CEFAZOLIN/SWI 2gm 2 GM/20 ML SYR ONE (07:06)
[2019-12-14] MEDS ORDERED: propofoL 200 MG/20 ML VIAL IV ONE (07:15)
[2019-12-14] MEDS ORDERED: KETAMINE HCL 500 MG/5 ML VIAL ONE (07:15)
[2019-12-14] MEDS ORDERED: dexAMETHasone 10 MG/ML VIAL ONE (07:15)
[2019-12-14] MEDS ORDERED: LIDOCAINE 2% MPF 5 ML VIAL ONE (07:15)
[2019-12-14] MEDS ORDERED: MIDAZOLAM HCL 2 MG/2 ML INJ ONE (07:16)
[2019-12-14] MEDS ORDERED: ONDANSETRON 4 MG/2 ML VIAL ONE (07:16)
[2019-12-14] MEDS ORDERED: ROCURONIUM 50 MG/5 ML VIAL IV ONE (07:16)
[2019-12-14] MEDS ORDERED: FENTANYL CITR 250 MCG/5 ML ONE (07:16)
[2019-12-14] MEDS ORDERED: HEPARIN 5000 UNIT/ML 1 ML VIAL ONE ×2 (07:36→07:39)
[2019-12-14] MEDS ORDERED: BUPIVACAINE 0.25% PF 30 ML VIAL ONE (07:47)
[2019-12-14] MEDS ORDERED: FENTANYL CITR 100 MCG/2 ML ONE ×2 (09:25→10:15)
[2019-12-14] MEDS ORDERED: KETOROLAC 30 MG/ML INJ ONE (10:46)
[2019-12-14] MEDS ORDERED: MORPHINE 10 MG/ML VIAL ONE (11:00)
[2019-12-14] MEDS ORDERED: EPHEDRINE SULF 50 MG/ML VIAL ONE (11:08)
[2019-12-14] MEDS ORDERED: NALOXONE 0.4 MG/ML VIAL ONE (11:29)
[2019-12-14] MEDS: MEPERIDINE HCL 25 MG/ML SYR ONE ×2 (11:41→11:50)
[2019-12-14] MEDS ORDERED: HYDROMORPHONE HCL 1 MG/ML INJ ONE (11:51)
[2019-12-14] MEDS ORDERED: PROMETHAZINE INJ 25 MG/ML AMP ONE (12:03)
[2019-12-14 12:49] VITALS: O2SAT 99
[2019-12-14] MEDS ORDERED: HYDROCODONE/APAP 5/325 MG TAB ONE (13:03)
[2019-12-14 14:25] VITALS: BP 120/82; TEMP 98.4
--- NOTE | 2019-12-14 20:39 | OP ---
Date of Procedure: 12/14/2019 Surgeon: Ariella Spears MD Resource Recovery Specialist: Taty Gomez. Preoperative Diagnoses: Menorrhagia, pelvic pain, left lower quadrant pain, dysmenorrhea, and fibroi ds. Postoperative Diagnoses: AUB-L/A, left ovarian cyst, menorrhagia, pelvic pain, left lower quadrant p ain, dysmenorrhea, and fibroids. Procedures Performed: 1.Total laparoscopic hysterectomy. 2.Bilateral salpingectomy. 3.Left ovarian cystectomy. 4.Cystoscopy. 5.Lysis of bladder adhesions from her prior section. Estimated Blood Loss: 50. Specimens: Uterus that was morcellated vaginally. Bilateral tubes and left ovarian cyst. Complications: No complications. Drains: No drains. Patient's Condition: Stable. Findings: Uterus was anteflexed. Large anterior leiomyoma about 4 cm. The entire uterus was globul ar and did not fit through the colpotomy, had to be morcellated and removed in pieces. The small pie jazlyn were part of the fibroid. The rest of the specimen was intact. The left tube was attached to th e uterus. The right tube was removed separately. Simple left ovarian cyst. No other pathology seen on the left side. No evidence of any endometriosis. The bladder adhesions were taken down sharply anteriorly before the colpotomy was performed. No evidence of any bladder trauma. The vaginal closure was done with 0 Vicryl sutures interrupted, 5 of them, 2 simple at the angles and 3 [id number] in the center. Both ovaries left intact. Indications: The patient is a 49-year-old, referred to me for bleeding, fibroids. The patient was e valuated with ultrasound and labs. She had anemia to the point that she needed transfusion. ivelisse Rojo when she was seen first, her hemoglobin level was 9.7 g. Then, endometrial sampling was perform ed. No atypia or malignancy was seen. Counseled on her different options, especially given the fact that there was severe anemia and presence of fibroids. Discussed about options of ablation, hystere ctomy. The patient was bleeding heavy despite getting medical treatment, proceeded with an ablation procedure as the endometrial lining had no atypia. After the ablation was performed, her bleeding hanks d slowed down some. Her pain was significant. It was worse than what she had prior to the ablation. So, we proceeded to consent her for hysterectomy and removal of tubes and removal of left ovary if any pathology is seen on it. Otherwise, she decided to have ovarian preservation. Description Of Procedure: After informed consent was done, she was given 3 g of Ancef preop. Then, she got 5000 units of heparin subcu and then taken back to the OR, placed in supine fashion on the op erating table. General anesthesia given, placed in a dorsal lithotomy position using Henry stirrups. Exam performed. Uterus appeared to be less mobile, about 8 to 10 weeks size. No adnexal masses. Abdomen, vulva, vagina, and perineum prepped and draped in a sterile fashion. Gastelum placed to drain the bladder and attached for retrograde filling. A large VCare introduced into the uterus and fixed in place. The area was draped. A 1 cm infraumbilical incision made with scalpel using open laparosc opy technique. Fascia incised and tagged with sutures. Peritoneum entered sharply. S-retractors we re placed and Romy introduced. Site of entry was unremarkable. The patient was placed in [facility]. Five left lower quadrant and 10 suprapubic ports were placed under direct vision. Upper abdo romario surface was unremarkable. The stump of the appendix was visualized, unremarkable. There were yaneth at the site. The sigmoid colon was retracted with the epiploicae tagged with 3-0 Monocryl tripathi ture and was pulled out through the left upper quadrant using a Travis-Milad needle for retraction . Then, opened the LigaSure, mesosalpinx was taken down. There were some adhesions at the level of the tube from the sigmoid to the lateral wall. This was taken down and then mesosalpinx was cauterized and cut with the help of the LigaSure. Then, the entire tube was removed. Utero-ovarian ligament ta daisy down anteriorly. The bladder flap was raised, starting dissected inferior to the opening made in the peritoneum. The bladder was raised and the adhesions were taken down to expose the anterior wal l of the vagina here. Then, was able to take the round ligament down. Posterior broad ligament was opened up all the way to the uterosacral, next closing the vessels, skeletonized the vessels anterior ly as well, then went onto the left side. The utero-ovarian ligament, the mesosalpinx and tubes and round ligament were taken down. Then, anterior broad ligament opened up to connect to the bladder fl ap and posteriorly to the left uterosacral ligament without any problems. The vessels were skeletoni zed. The anterior vaginal wall was cleared and vesicovaginal space was entered with a monopolar hook blade. Then, the bladder was dissected inferiorly at least a centimeter below the cup. Medial spac es were made for the vessels with the help of the monopolar hook blade. Then, the vessels were taken down with the bipolar basket tip and the LigaSure. The uterine artery and vein were taken down, the n the descending branch was taken down. The cardinal ligaments were taken down as well with the help of the LigaSure. Then, on the opposite side, similar dissection was performed. After all the pedic les were taken down, there was good hemostasis. Circumferential colpotomy performed with a monopolar hook blade. Specimen was held with Allis clamps through the vaginal canal. However, it was very di fficult to retrieve the specimen without morcellation. The anterior myoma was large and her pelvic cavity narrow. After opening the 4 mass clamps, these were used and a #10 blade and then small vaginal retractors. The uterus and the fibroid were morcellated. Once part of the specimen was morcellated, then I was a ble to retrieve the rest of it intact. This was pulled out. Vaginal occluder was placed with a spon ge tucked in a glove for maintaining pneumoperitoneum. After changing the gloves, thorough irrigation and suction was performed at the level of the vaginal cuff. The rest of the tube was removed. The ovarian cystectomy was performed. There was a simple c yst. There was no evidence of any endometriosis. There was no medical indication to perform oophore ctomy and so the ovaries were left intact. The vaginal cuff closure was performed with the help of 0 Monocryl in a simple fashion on both angles and 3 [id number]-[id number] in the center. There was excellent closure of both connective tissue of the a nterior and posterior wall as well as the uterosacrals reconnected back to the apex of the vagina for future support. After thorough irrigation and suction was performed, the ureters were observed on both sides. No wai dence of electrical, mechanical, or thermal injury to them. The gas was desufflated in the close fas hion and all the ports were removed. Both sides of the skin and the fascia were injected with 0.25% Marcaine at entry and exit. The fascia at the umbilicus closed with the tag sutures tied together an d suprapubic fascial closure with a simple 0 Vicryl stitch. All skin closures with interrupted 4-0 V icryl sutures. Gastelum was removed. Vaginal occluder was removed. A 17-Malay sheath, 30-degree lens, normal saline was used with cystoscopy after filling the bladder to at least 300. No evidence of any trauma to the bladder. Both ureteric orifices were well visualized with strong jets of urine from both sides. The bladder was drained. Vaginal canal was visualized with the help of the scope as wall and there w as good closure. No evidence of any laceration here after the morcellation. On the left labium, the re was a slight laceration from just the size of the uterus causing excessive stretching at the time that it was removed with slight laceration less than 5 mm. This was left alone. No need for suturin g. There was no bleeding. All instrument, needle, and sponge counts were correct at the end of the case. The patient tolerated the procedure well. She was recovered from anesthesia and taken to PACU in stable condition. She h as a 1 week followup appointment with me. Her urine had bacteriuria at the time of the preop check. The culture count was less than 10,000 colony-forming units. I gave her a prescription of Macrobid, which she is advised to continue for 5 days due to the instrumentation of the bladder. LUIS ANGEL/NABOR Voice ID: [id number] Report ID: [id number]
== END 2019-12-14 14:20 | disposition home or self-care (01) ==
LOC: OR 06:39
PROVIDERS: ATTEND Obstetrics & Gynecology
PROC: 0UT7FZZ Resection of Bilateral Fallopian Tubes, Via Natural or Artificial Opening With Percutaneous Endoscopic Assistance (ICD-10-PCS; 2019-12-14)
PROC: 0UB14ZZ Excision of Left Ovary, Percutaneous Endoscopic Approach (ICD-10-PCS; 2019-12-14)
PROC: 0UT9FZZ Resection of Uterus, Via Natural or Artificial Opening With Percutaneous Endoscopic Assistance (ICD-10-PCS; principal; 2019-12-14 07:30)
DX: N93.9 Abnormal uterine and vaginal bleeding, unspecified (principal); N92.1 Excessive and frequent menstruation with irregular cycle; N94.6 Dysmenorrhea, unspecified; N80.0 Endometriosis of uterus; D25.9 Leiomyoma of uterus, unspecified; N83.02 Follicular cyst of left ovary; N32.89 Other specified disorders of bladder; Z11.59 Encounter for screening for other viral diseases; D64.9 Anemia, unspecified
CPT/HCPCS: 87088; 85025; 87086; 36415; 86900; 86850; 81025; 86901; 88307; 58552; 58662; U0002; J2704; J2550; J2310; J1644; J2250; J3010 ×3; J1100; J2175; J1170; J0690; J7120 ×3; J2405; 81003; 81015

== ENCOUNTER 2020-02-20 07:18 | Emergency (ER) | payer BC ==
--- OUTSIDE RECORDS SUMMARY | 2020-02-20 07:21 | XMS REPORT | Clinical Summary ---
:1970 Author Organization [facility] Address [address] [place] [address] Care Team Providers Name Role Phone Asked, Pcp Primary Care Provider Unavailable Allergies No Known Active Allergies Medications Medication Sig Dispensed Refills Start [...] Rich MD respiratory infection) (Primary Dx) after 02/19/2019 Surgical History Surgery Date Site/Laterality Comments SECTION APPENDECTOMY Medical History Medical History Date Comments Hypertension Social History Tobacco Use Types Packs/Day Years Used Date Former Smoker Smokeless Tobacco: Never Used Alcohol Use Drinks/Week oz/Week Comments Yes social Sex Assigned at Date Recorded Not on file Last Filed Vital Signs Vital Sign Reading Time Taken Comments Blood Pressure 113/63 05/27/2019 4:30 PM STAFF SCIENTIST Pulse 102 05/27/2019 4:30 PM STAFF SCIENTIST Temperature 37.5 C (99.5 F) 05/27/2019 4:00 PM STAFF SCIENTIST Respiratory Rate 19 05/27/2019 4:30 PM STAFF SCIENTIST Oxygen Saturation 95% 05/27/2019 4:30 PM STAFF SCIENTIST Inhaled Oxygen Concentration - - Weight 77.1 kg (170 lb) 05/27/2019 10:46 AM STAFF SCIENTIST Height 160 cm (5' 3") 05/27/2019 10:46 AM STAFF SCIENTIST Body Mass Index 30.11 05/27/2019 10:46 AM STAFF SCIENTIST Plan of Treatment Health Maintenance Due Date Last Done Comments CERVICAL CANCER SCREENING 1993 INFLUENZA VACCINE 12/04/2019 Procedures Procedure Name Priority Date/Time Associated Comments Diagnosis ECG ED PRELIMINARY Routine 05/27/2019 1:35 Resul ts for this INTERPRETATION PM STAFF SCIENTIST procedure are in the results section. XR CHEST 1 VW PORTABLE STAT 05/27/2019 1:15 R esults for this PM STAFF SCIENTIST procedure are i n the results section. INFLUENZA ANTIGEN STAT 05/27/2019 12:05 Result s for this PM STAFF SCIENTIST procedure are i n the results section. SMEAR REVIEW STAT 05/27/2019 11:24 Results for this AM STAFF SCIENTIST procedure are i n the results section. ESTIMATED GFR STAT 05/27/2019 11:24 Results fo r this AM STAFF SCIENTIST procedure are i n the results section. COMPREHENSIVE METABOLIC STAT 05/27/2019 11:24 Results for this PANEL AM STAFF SCIENTIST procedure are i n the results section. HC COMPLETE BLD COUNT STAT 05/27/2019 11:24 Re sults for this W/AUTO DIFF AM STAFF SCIENTIST procedure are i n the results section. ECG 12-LEAD STAT 05/27/2019 10:42 Results for this AM STAFF SCIENTIST procedure are i n the results section. after 02/19/2019 Results ECG ED Preliminary Interpretation - Not an Order (05/27/2019 1:35 PM STAFF SCIENTIST) Narrative Performed At Kayden Lawson MD 05/06 8:41 AM ECG ED Preliminary Interpretation - Not an Order Performed by: Kayden Lawson MD Authorized by: Kayden Lawson MD ECG reviewed by ED Physician in the abse nce of a street light servicer supervisor: yes Interpretation: Interpretation: abnormal Rate: ECG rate: 122 ECG rate assessment: tachycardic Rhythm: Rhythm: sinus tachycardia QRS: QRS axis: Normal QRS intervals: Normal Conduction: Conduction: normal ST segments: ST segments: Non-specific Depression: V4, V5 and V6 T waves: T waves: normal XR Chest 1 Vw Portable (05/27/2019 1:15 PM STAFF SCIENTIST) Specimen Narrative Performed At EXAMINATION: XR CHEST 1 VW PORTABLE [facility] INDICATION: SOB COMPARISON: None IMPRESSION: Low lung volumes. No confluent airspace disease or ove rt pulmonary edema. No pleural effusion or pneumothor ax. Cardiomediastinal silhouette is within normal limits a ccounting for portable technique, patient body habitus , and low lung volumes. [id number] Procedure Note Hm Interface, Radiology Results Incoming - 05/27/2019 1:25 PM STAFF SCIENTIST EXAMINATION: XR CHEST 1 VW PORTABLE INDICATION: SOB COMPARISON: None IMPRESSION: Low lung volumes. No confluent airspace disease or overt pulmonary edema. No pleural effusion or pneumothorax. Cardiomediastinal silhouette is within n ormal limits accounting for portable technique, patient body habitus, and low lung volumes. [id number] Performing Organization Address [facility] Phon e Number [facility] [address] [place] [phone] Influenza antigen (05/27/2019 12:05 PM STAFF SCIENTIST) Pathologist [facility] [place] Influenza antigen Negative for Influenza A/B antigen. [facility] Comment: HOSPITAL Specimen Information Specimen Source: Nares Specimen Site: Right Specimen Nares - Right Performing Organization Address [facility] Phon e Number [facility] DEPARTMENT OF PATHOLOGY AND [address] [place], [place] [phone] [address] [address] Smear review (05/27/2019 11:24 AM STAFF SCIENTIST) [facility] Platelet slide review Increased (A) [facility] Anisocytosis Moderate [facility] Polychromasia Moderate [facility] Target cells Moderate (A) [facility] Ovalocytes Moderate [facility] Enlarged platelets Moderate (A) [facility] Giant platelets Occasional [facility] Toxic granulation Slight [facility] Specimen Performing Organization Address [facility] Phon e Number [facility] DEPARTMENT OF PATHOLOGY AND [address] [place] [address] [phone] [address] Estimated GFR (05/27/2019 11:24 AM STAFF SCIENTIST) [facility] Estimated GFR >=90 mL/min/1.73 [facility] Comment: HOSPITAL Catergory Units Interpretation G1 >=90 [...] 2014. Specimen Plasma specimen Performing Organization Address City/[facility] Phon e Number [facility] DEPARTMENT OF PATHOLOGY AND [address] [place] [address] [phone] [address] CBC with platelet and differential (05/27/2019 11:24 AM STAFF SCIENTIST) WBC 8.91 4.50 - 11.00 [facility] k/uL HOSPITAL RBC 4.13 (L) 4.20 - 5.50 [facility] m/uL HOSPITAL HGB 7.2 (L) 12.0 - 16.0 [facility] gdL [facility] HCT 28.4 (L) 37.0 - 47.0 % [facility] MCV 68.8 (L) 82.0 - 100.0 [facility] MCH 17.4 (L) 27.0 - 34.0 pg [facility] MCHC 25.4 (L) 31.0 - 37.0 [facility] g/dL [facility] RDW - SD 43.8 37.0 - 55.0 fL [facility] MPV 10.0 8.8 - 13.2 fL [facility] Platelet count 458 (H) 150 - 400 k/uL [facility] Nucleated RBC 0.00 /100 WBC [facility] Neutrophils 90.2 (H) 39.0 - 69.0 % [facility] Lymphocytes 3.7 (L) 25.0 - 45.0 % [facility] Monocytes 4.2 0.0 - 10.0 % [facility] Eosinophils 1.2 0.0 - 5.0 % [facility] Basophils 0.3 0.0 - 1.0 % [facility] Immature granulocytes 0.4Comment: 0.0 - 1.0 % [facility] "Immature [facility] granulocytes" (promyelocytes , myelocytes, metamyelocytes ) Specimen Blood Performing Organization Address City/[facility] Phon e Number [facility] DEPARTMENT OF PATHOLOGY AND [address] [place], [place] [address] [address] Comprehensive metabolic panel (05/27/2019 11:24 AM STAFF SCIENTIST) Sodium 138 135 - 148 [facility] mEq/L [facility] Potassium 3.7 3.5 - 5.0 [facility] mEq/L [facility] Chloride 100 98 - 112 mEq/L [facility] CO2 22 (L) 24 - 31 mEq/L [facility] Anion gap 16@ANIO (H) 7 - 15 mEq/L [facility] BUN 7 6 - 20 mg/dL [facility] Creatinine 0.77 0.50 - 0.90 [facility] mg/dL HOSPITAL Glucose 139 (H) 65 - 99 mg/dL [facility] Calcium 8.2 (L) 8.3 - 10.2 [facility] mg/dL [facility] Protein 7.6 6.3 - 8.3 g/dL [facility] Comment: HOSPITAL Kjsubwq5422.6-7.0 g/dL 1 tnhf7636.4-7.6 g/dL 7 months-5ajgs469.1-7.3 g/dL 1-2 xwbcu397.6-7.5 g/dL >3 .0-8.0 g/dL 18-6913527.3-8.3 g/dL Albumin 3.4 (L) 3.5 - 5.0 g/dL [facility] A/G ratio 0.8 0.7 - 3.8 [facility] Alkaline phosphatase 100 35 - 104 U/L [facility] AST 50 (H) 10 - 35 U/L [facility] ALT 16 5 - 50 U/L [facility] Total bilirubin 1.8 (H) 0.0 - 1.2 [facility] mg/dL [facility] Specimen Plasma specimen Performing Organization Address City/State/[facility] Code Phon e Number [facility] DEPARTMENT OF PATHOLOGY AND [address] [place] [phone] GENOMIC MEDICINE [address] [address] ECG 12 lead (05/27/2019 10:42 AM STAFF SCIENTIST) Pathologist Sig nature Ventricular rate 122 [facility] Atrial rate 122 [facility] OH interval 122 [facility] QRSD interval 70 [facility] QT interval 308 [facility] QTC interval 438 [facility] M[facility] P axis 1 34 [facility] QRS axis 1 12 [facility] T wave axis -1 [facility] EKG impression Sinus [facility] tachycardia-Nonspecific ST and T wave abnormality-Abnormal ECG-No previous ECGs available-Electronicall y Signed By Sayda Moore ([id number]) on 05/28/2019 9:03:37 PM Specimen Narrative Performed At This result has an attachment that is no t available. Performing Organization Address City/State/ZIP Code Phon e Number [facility] MUSE [address] [place] [address] after 02/19/2019 Advance Directives For more information, please contact: [phone] Type Date Recorded Patient Red Leader Explanati on Advance Directives, Living Will and Medical Power of Material Hauler
--- OUTSIDE RECORDS SUMMARY | 2020-02-20 07:21 | XMS REPORT | Continuity of Care Document ---
:1970 Author Organization [facility] t Address [address] [place] [address] Care Team Providers Name Role Phone Asked, Pcp Primary Care Physician Unavailable Lulu MORRIS, RFidelia Attending Clinician Payers Payer Name Policy Type Policy Effective Date Expiration Date Sour ce Number BCBSBCBS CHOICE [id number] 2018 [place] PPO/FEDERAL 00:00:00 [facility] EMPL [id number] 2018-Presen tPPO Problems This patient has no known problems. Allergies, Adverse Reactions, Alerts This patient has no known allergies or adverse reactions. Social History Social Habit Start Date Stop Date Quantity Comments Source Sex Assigned At [facility] ethodist Tobacco use and 2019-05-27 2019-05-27 Never used [facility]ist exposure 00:00:00 00:00:00 Alcohol intake 2019-05-27 2019-05-27 Current drinker [place] [facility] 00:00:00 00:00:00 of alcohol (finding) Alcohol Comment 2019-05-27 2019-05-27 social [facility] ethodist 00:00:00 00:00:00 Smoking Status Start Date Stop Date Source Former smoker 2019-05-27 00:00:00 2019-05-27 00:00:00 [place] [facility] Medications Ordered Filled Start Stop Current Ordering [...] vomiting for up to 10 days. oseltamivir No 75mg Q.5D Take 1 Karol ston [...] Kayden Rich COMPREHENSIVE METABOLIC 2019-05-27 11:24:00 Karen Lawson PANEL Kayden Rich ESTIMATED GFR 2019-05-27 11:24:00 Alberto Lawson Meth odist Kayden Rich SMEAR REVIEW 2019-05-27 11:24:00 Alberto Lawson Meth odist Kayden Rich ECG 12-LEAD 2019-05-27 10:42:05 Allan Meyer [facility] thodist Plan of Care Planned Activity Planned Date Details Comments Source Future Scheduled 2019-12-04 INFLUENZA VACCINE [place] [facility] 00:00:00 [code = INFLUENZA VACCINE] Future Scheduled 1993 Screening for [place] [facility]odist Test 00:00:00 malignant neoplasm of cervix (procedure) [code = 912714864] Encounters Start End Encounter Admission Attending Care Care Encounter Source Date/Time Date/Time Type Type Clinicians Facility Department ID 2019-05-27 2019-05-27 Emergency [facility] [id number] [place] 00:00:00 00:00:00 [place], [address] Results Test Description Test Time Test Comments Results Result Comments Source ECG 12 lead 2019-05-28 21:03:40 Test Item Value Reference Range Interpretation Comme nts Ventricular rate (test code = 253) 122 Atrial rate (test code = 255) 122 CO interval (test code = 266) 122 QRSD [...] T wave abnormality-Abnormal ECG-No previous ECGs available- [facility] ED Preliminary Interpretation - Not an [id number] 13:35:41 Test Item Value Reference Range Interpretation Comments KRISTY (test code = KRISTY) Kayden Lawson MD 06/01/2019 8:41 [facility] ED Preliminary Interpretation - Not an OrderPerformed by: Kayden Lawson MDAuthorized by: Kayden Lawson MD ECG reviewed by ED Physician in the absence of a canopy inspector: yes Interpretation: Interpretation: abnormal Rate: ECG rate: 122 ECG rate assessment: tachycardic Rhythm: Rhythm: sinus tachycardia QRS: QRS axis: Normal QRS intervals: NormalConduction: Conduction: normal ST segments: ST segments: Non-specific Depression: V4, V5 and V6T waves: T waves: normal Lab Interpretation Abnormal (test code = 45951-0) Alberto MethodistXR Chest 1 Vw [id number] 13:22:23Hm Interface, Radiology Results Incoming - 05/27/2019 1:25 PM CSTEXAMINATION: XR CHEST 1 VW PORTABLEINDICATION: SOBCOMPARISON: NoneIMPRESSION:Low lung volumes. No confluent airspace disease or overt pulmonary edema. No pleural effusion or pneumothorax.Cardiomediastinal silhouette is within normal limits accounting for portable technique, patient body habitus, and low lung volumes.[id number] Alberto LynchistInfluenza [id number] 13:14:13 Test Item Value Reference Range Interpretation Comments Influenza Negative for Specimen antigen (test Influenza A/B [facility] ecimen code = 36171-0) antigen. [facility] Site: Right [place] SyedistSmear [id number] 12:52:26 Test Item Value Reference Range Interpretation Comments Platelet slide review (test code = Increased A 90688-5) Anisocytosis (test code = 702-1) Moderate Polychromasia (test code = Moderate 21989-7) Target cells (test code = 51414-4) Moderate A Ovalocytes (test code = 774-0) Moderate Enlarged platelets (test code = Moderate A 84973-4) Giant platelets (test code = Occasional 5908-9) Toxic granulation (test code = Slight 803-7) Lab Interpretation (test code = Abnormal 10543-6) Alberto LynchistComprehensive metabolic [id number] 12:00:19 Test Item Value Reference Range Interpretation Comments Sodium (test code = 138 135- 148 mEq/L 2951-2) Potassium (test code = 3.7 3.5- 5.0 mEq/L 2823-3) Chloride (test code = 100 98- 112 mEq/L 5-0) CO2 (test code = 2027-9) 22 24- 31 mEq/L L Anion gap (test code = 16@ANIO 7- 15 mEq/L H 08419-7) BUN (test code = 3094-0) 7 mg/dL 6-20 Creatinine (test code = 0.77 mg/dL 0.5-0.9 2160-0) Glucose (test code = 139 mg/dL 65-99 H 2345-7) Calcium (test code = 8.2 mg/dL 8.3-10.2 L 45938-2) Protein (test code = 7.6 g/dL 6.3-8.3 Barton 9994.6-7.0 2885-2) g/dL1 rsvd0926.4-7.6 g/dL7 months-0soxy378 .1- 7.3 g/dL1-2 yinby639.6-7.5 g/dL>3 .0-8.0 g/jV02-8163891. 3-8 .3 g/dL Albumin (test code = 3.4 g/dL 3.5-5 L 1751-7) A/G ratio (test code = 0.8 0.7-3.8 1759-0) Alkaline phosphatase 100 U/L 35-104 (test code = 6768-6) AST (test code = 1920-8) 50 U/L 10-35 H ALT (test code = 1742-6) 16 U/L 5-50 Total bilirubin (test 1.8 mg/dL 0-1.2 H code = 1974-) Lab Interpretation (test Abnormal code = 46532-9) Alberto MethodistEstimated [id number] 12:00:19 Test Item Value Reference Range Interpretation Comments Estimated GFR (test >=90 mL/min/1.73 m2 Caterg ory Units code = 5488) InterpretationG 1 >=90 Normal or highG2 60-89 Mildly oolwaxhqgQ0q 45-59 Mildly to mode rately iaqouuewjL1r 30-44 Moderately to severely decreasedG4 15-29 Severely decre asedG5 <15 Kidn ey failureThe eGFR was calculated raymundo coleman the Chronic Kidney Disease Epidemiology Co llaboration (CKD-EPI) equat ion. Interpretation is based on recommendations of the National Kidney Foundation-Kidn ey Disease Outcomes Qualit y Initiative (NKF-KDOQI) pub lished in 2014. Alberto MethodistCBC with platelet and [id number] 11:36:54 Test Item Value Reference Range Interpretation Comments WBC (test code = 84129-0) 8.91 4.50- 11.00 k/uL RBC (test code = 76592-7) 4.13 m/uL 4.2-5.5 L HGB (test code = 718-7) 7.2 g/dL 12-16 L HCT (test code = 4544-3) 28.4 % 37-47 L MCV (test code = 787-2) 68.8 fL 82-100 L MCH (test code = 785-6) 17.4 pg 27-34 L MCHC (test code = 786-4) 25.4 g/dL 31-37 L RDW - SD (test code = 43.8 fL 37-55 41837-4) MPV (test code = 15502-0) 10.0 fL 8.8-13.2 Platelet count (test code 458 150- 400 k/uL H = 38841-6) Nucleated RBC (test code 0.00 /100 WBC = 96958-0) Neutrophils (test code = 90.2 % 39-69 H 51883-7) Lymphocytes (test code = 3.7 % 25-45 L 70007-9) Monocytes (test code = 4.2 % 0-10 03927-7) Eosinophils (test code = 1.2 % 0-5 35707-5) Basophils (test code = 0.3 % 0-1 32110-9) Immature granulocytes 0.4 % 0-1 "Immat ure (test code = 28659-6) granul ocytes" (promyelocytes, myelocytes, metamyelocytes) Lab Interpretation (test Abnormal code = 98537-5) Alberto [place]
[2020-02-20] MEDS ORDERED: LIDOCAINE 1% MPF 30 ML VIAL ONE (07:50)
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
[2020-02-20 09:17] VITALS: TEMP 98.4; O2SAT 100
[2020-02-20 09:19] VITALS: BP 106/75
== END 2020-02-20 09:12 | disposition home or self-care (01) ==
LOC: ER 07:18
PROC: 0CQ0XZZ Repair Upper Lip, External Approach (ICD-10-PCS; principal; 2020-02-20)
DX: S01.511A Laceration without foreign body of lip, initial encounter (principal); S01.512A Laceration without foreign body of oral cavity, initial encounter; Y04.2XXA Assault by strike against or bumped into by another person, initial encounter; Y93.9 Activity, unspecified; Y92.009 Unspecified place in unspecified non-institutional (private) residence as the place of occurrence of the external cause; I10 Essential (primary) hypertension
CPT/HCPCS: 99284

== ENCOUNTER 2020-07-23 13:49 | Emergency (ER) | payer BC ==
--- OUTSIDE RECORDS SUMMARY | 2020-07-23 13:51 | XMS REPORT | Continuity of Care Document ---
:1970 Author Organization [facility] t Address [address] [place] [address] Care Team Providers Name Role Phone Asked, Pcp Primary Care Physician Unavailable MAYUR Attending Clinician Unavailable Payers Payer Name Policy Type Policy Number Effective Date Expiration Date S ource Problems This patient has no known problems. Allergies, Adverse Reactions, Alerts This patient has no known allergies or adverse reactions. Social History Social Habit Start Date Stop Date Quantity Comments Source Tobacco use and 2019-05-27 2019-05-27 Never used [facility]to [facility] ethodist exposure 00:00:00 00:00:00 Alcohol intake 2019-05-27 2019-05-27 Current drinker [place] [facility] 00:00:00 00:00:00 of alcohol (finding) Alcohol Comment 2019-05-27 2019-05-27 social [place] [facility]ist 00:00:00 00:00:00 Sex [birth year] At [birth year] [place] [facility]ist 00:00:00 00:00:00 Smoking Status Start Date Stop Date Source Former smoker 2019-05-27 00:00:00 2019-05-27 00:00:00 [place] [facility] Medications This patient has no known medications. Procedures This patient has no known procedures. Plan of Care Planned Activity Planned Date Details Comments Source Future Scheduled 2019-12-04 INFLUENZA VACCINE [place] [facility] 00:00:00 [code = INFLUENZA VACCINE] Future Scheduled 1993 Screening for [facility] thodist Test 00:00:00 malignant neoplasm of cervix (procedure) [code = 861076865] Future Scheduled 1990 Hepatitis C [place] [facility] hodist Test 00:00:00 screening (procedure) [code = 348878891] Future Scheduled 1988 COVID-19 VACCINE (1 [place] [facility] Test 00:00:00 of 2) [code = COVID-19 VACCINE (1 of 2)] Encounters Start End Encounter Admission Attending Care Care Encounter Source Date/Time Date/Time Type Type Clinicians Facility Department ID 2019-05-27 2019-05-27 Emergency [facility] [id number] [place] 00:00:00 00:00:00 [place], [address] Results This patient has no known results.
[2020-07-23] MEDS ORDERED: MECLIZINE HCL 12.5 MG TAB ONE (14:54)
[2020-07-23] MEDS ORDERED: MORPHINE 4 MG/ML SYR ONE ×2 (14:54→16:03)
[2020-07-23] MEDS ORDERED: ONDANSETRON 4 MG/2 ML VIAL ONE (14:54)
[2020-07-23 14:57] LABS: Basophils % 1.2 % (0-1.3); Hematocrit 33.3 % (36.0-45.0); Lymphocytes % 25.8 % (15.3-44.8); MPV 8.8 fL (7.6-11.3); RBC Red Blood Cell Count 5.03 M/uL (3.86-4.86)
[2020-07-23 15:09] LABS: Protime INR 1.11
[2020-07-23 15:34] LABS: ALT/SGPT 36 U/L (12-78); AST/SGOT 58 U/L (15-37); Albumin 3.2 g/dL (3.4-5.0); Alkaline Phosphatase 131 U/L (45-117); BUN Blood Urea Nitrogen 6 mg/dL (7-18); Bicarbonate 23 mmol/L (21-32); Bilirubin Direct 0.2 mg/dL (0-0.2); Bilirubin Total 0.8 mg/dL (0.2-1.0); Glucose Level 111 mg/dL (74-106); Magnesium 1.7 mg/dL (1.8-2.4); Potassium 3.4 mmol/L (3.5-5.1); Protein, Total 7.4 g/dL (6.4-8.2); Sodium Level 142 mmol/L (136-145); Troponin (Emerg Dept Use Only) < 0.02 ng/mL (0.0-0.045)
--- NOTE | 2020-07-23 15:46 | RAD REPORT ---
EXAM DESCRIPTION: CT - Head C Spine Cap W Con - 07/23/2020 3:21 pm CLINICAL HISTORY: fall down stairs;Pain, head, neck, chest and abdomen pain History hysterectomy and appendectomy COMPARISON: <Comparisons> TECHNIQUE: Axial [address] head images were obtained. Axial [address] cervical spine images were obtaine d with sagittal and coronal reconstruction images reviewed. During dynamic enhancement of 100mL non-i onic contrast, axial 5 mm images of the chest, abdomen and pelvis were obtained. Biphasic technique p erformed of the abdomen and pelvis. All CT scans are performed using dose optimization technique as appropriate and may include automated exposure control or mA/KV adjustment according to patient size. FINDINGS: No intracranial hemorrhage, mass or edema. No midline shift or abnormal fluid collection. Mastoid air cells and paranasal sinuses are clear. No skull fracture. CT cervical spine imaging shows normal height. Normal alignment of the vertebrae. No disc space narro wing. No paraspinal mass or hematoma seen. Central canal detail is inherently limited. Concerns for t raumatic disc herniation or traumatic cord injury can be further addressed with MR imaging. CT chest shows no pneumothorax, pulmonary contusion or pleural fluid collection. No mediastinal hemat primitivo and the aorta and pulmonary arteries are unremarkable. No chest will mass or abnormal axillary fi nding. No displaced rib fracture or other significant bony finding. CT abdomen and pelvis show no injury to solid abdominal viscera. Gallbladder and biliary tree are unr emarkable. No bowel injury or significant finding. No free air, free fluid or abnormal stranding. No urinary bladder abnormality. No urinary bladder abnormality. Uterus is absent. Ovaries are absent or atrophic. No significant bony finding. No significant vascular finding. IMPRESSION: No significant CT Head finding. No significant CT Cervical Spine finding. No significant CT Chest finding. No significant CT Abdomen and Pelvis finding.
[2020-07-23] MEDS ORDERED: NA CHLORIDE 0.9% 1,000 ML ONE (16:19)
--- NOTE | 2020-07-23 16:43 | RAD REPORT ---
EXAM DESCRIPTION: RAD - Chest Single View - 07/23/2020 4:26 pm CLINICAL HISTORY: CHEST PAIN COMPARISON: April 2017 TECHNIQUE: AP portable chest image was obtained 07/23/2020 4:26 pm . FINDINGS: Lung volumes are very low. No failure, infiltrate mass or pulmonary edema finding. Lung ma rkings match comparison. Heart and vasculature are normal. No measurable pleural effusion and no pneu mothorax. No acute bony abnormality seen. No acute aortic findings suspected. IMPRESSION: No acute cardiopulmonary process. Exam is limited but no significant change from comparison identifiable.
[2020-07-23 17:31] LABS: Anisocytosis 1+; Blood Morphology Comment NOTED (NOT SEEN); Platelet Estimate ADEQ; Poikilocytosis 2+; White Blood Cell Scan OK (OK)
--- NOTE | 2020-07-23 17:59 | ER ---
Nurse's Notes [facility] Name: Herlinda Porter Age: 49 yrs Sex: Female : 1970 Arrival Date: 07/23/2020 Time: 13:50 Bed 23 Private MD: Albert Leach H Diagnosis: Dizziness and giddiness;Fall on and from stairs and steps;Other chest pain-from fall;Unspecified abdominal pain-from fall Presentation: 07/23 13:58 Chief complaint: Patient states: Been dizzy spells since Friday. Been losing balance a ca1 lot. Fell down the stairs last night. Reports pain L rib cage, hit head on the bottom step. Denies LOC. Not on blood thinners. Denies neck pain. Coronavirus screen: Client denies travel out of the [place] in the last 14 days. At this time, the client does not indicate any symptoms associated with coronavirus-19. Ebola Screen: Patient negative for fever greater than or equal to 101.5 degrees Fahrenheit, and additional compatible Ebola Virus Disease symptoms Patient denies exposure to infectious person. Patient denies travel to an Ebola-affected area in the 21 days before illness onset. No symptoms or risks identified at this time. Initial Sepsis Screen: Does the patient meet any 2 criteria? No. Patient's initial sepsis screen is negative. Does the patient have a suspected source of infection? No. Patient's initial sepsis screen is negative. Risk Assessment: Do you want to hurt yourself or someone else? Patient reports no desire to harm self or others. Onset of symptoms was July 23, 2020. 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 - Social history:: Smoking status: Patient denies any tobacco usage or history of. Screenin:19 Abuse screen: Denies threats or abuse. Denies injuries from another. Nutritional zb screening: No deficits noted. Tuberculosis screening: No symptoms or risk factors identified. Fall Risk Fall in past 12 months (25 points). No secondary diagnosis (0 pts). IV access (20 points). Ambulatory Aid- None/Bed Rest/Nurse Assist (0 pts). Gait- Normal/Bed Rest/Wheelchair (0 pts) Mental Status- Oriented to own ability (0 pts). Total Barkley Fall Scale indicates High Risk Score (45 or more points). Fall prevention measures have been instituted. Side Rails Up X 2 Placed Close to Nursing Station Frequent Obs/Assessments Occuring. Assessment: 14:05 Reassessment: ECP at bedside. zb 14:09 General: Appears uncomfortable, Behavior is calm, cooperative, appropriate for age, zb crying. Pain: Complains of pain in anterior aspect of left upper chest and abdomen Pain does not radiate. Pain currently is 10 out of 10 on a pain scale. Quality of pain is described as sharp, tender, Pain began 1 day ago. Neuro: Level of Consciousness is awake, alert, obeys commands, Oriented to person, place, time, Continuity Director are equal bilaterally Gait is steady, Facial symmetry appears normal, Pupils are PERRLA, Intact Reports dizziness. Cardiovascular: Heart tones S1 S2 present Capillary refill < 3 seconds in bilateral fingers Patient's skin is warm and dry. Chest pain. Respiratory: Airway is patent Respiratory effort is even, unlabored, Respiratory pattern is regular, symmetrical. GI: Abdomen is round non-distended. : No signs and/or symptoms were reported regarding the genitourinary system. EENT: No signs and/or symptoms were reported regarding the EENT system. Derm: Skin is intact, Skin is dry, Skin is normal, Skin temperature is warm. Musculoskeletal: Range of motion: intact in all extremities, Swelling present in top of head and anterior aspect of left lateral abdomen. 15:37 Reassessment: Patient appears in no apparent distress at this time. Patient and/or zb family updated on plan of care and expected duration. Pain level reassessed. Patient is alert, oriented x 3, equal unlabored respirations, skin warm/dry/pink. notified ECP that patient remains in pain. 16:30 Reassessment: Patient appears in no apparent distress at this time. Patient and/or zb family updated on plan of care and expected duration. Pain level reassessed. Patient is alert, oriented x 3, equal unlabored respirations, skin warm/dry/pink. IV fluids infusing. 17:30 Reassessment: Patient appears in no apparent distress at this time. Patient and/or zb family updated on plan of care and expected duration. Pain level reassessed. Patient is alert, oriented x 3, equal unlabored respirations, skin warm/dry/pink. pt awaiting a patch. awaiting warehouse order selector to bring it. 18:24 Reassessment: Patient appears in no apparent distress at this time. Patient and/or zb family updated on plan of care and expected duration. Pain level reassessed. Patient is alert, oriented x 3, equal unlabored respirations, skin warm/dry/pink. d/c instructions given. waiting patch. Vital Signs: 13:58 BP 144 / 96; Pulse 92; Resp 16 S; Temp 98.5(TE); Pulse Ox 98.5% on R/A; Weight 74.84 kg ca1 (R); Height 5 ft. 3 in. (160.02 cm) (R); Pain 8/10; 15:36 BP 120 / 77; Pulse 74; Resp 16; Pulse Ox 98% on R/A; zb 16:30 BP 125 / 70; Pulse 70; Resp 15; Pulse Ox 98% on R/A; zb 17:03 BP 103 / 66; Pulse 74; Resp 16; Pulse Ox 96% on R/A; zb 18:00 BP 101 / 55; Pulse 61; Resp 16; Pulse Ox 97% on R/A; zb 13:58 Body Mass Index 29.23 (74.84 kg, 160.02 cm) ca1 ED Course: 13:50 Patient arrived in ED. am2 13:50 Albert Leach DO is Private Physician. am2 14:01 Triage completed. ca1 14:01 Arm band placed on right wrist. ca1 14:05 Valerio Salter PA is PHCP. cp 14:06 Georgette Lamas MD is Attending Physician. cp 14:08 Brooke Barrios RN is Primary Nurse. zb 14:15 Inserted saline lock: 20 gauge in right antecubital area, using aseptic technique. zb Blood collected. Missed attempt(s): 20 gauge in right forearm. 14:20 Patient has correct armband on for positive identification. Placed in gown. Bed in low zb position. Call light in reach. Side rails up X 1. Pulse ox on. NIBP on. Door closed. Noise minimized. Warm blanket given. 14:30 EKG done, by ED staff, reviewed by Valerio DUARTE. zb 15:20 CT Traumagram (Head C Spine CAP W Con) In Process Unspecified. EDMS 16:26 XRAY Chest (1 view) In Process Unspecified. EDMS 18:25 No provider procedures requiring assistance completed. IV discontinued, intact, zb bleeding controlled, No redness/swelling at site. Pressure dressing applied. Administered Medications: 15:03 Drug: morphine 4 mg {Note: Rass 0.} Route: IVP; Site: right antecubital; zb 15:52 Follow up: Response: No adverse reaction; Pain is unchanged, physician notified; RASS: zb Alert and Calm (0) 15:03 Drug: Zofran (Ondansetron) 4 mg Route: IVP; Site: right antecubital; zb 15:53 Follow up: Response: No adverse reaction; Marked relief of symptoms zb 15:03 Drug: Meclizine 25 mg Route: PO; zb 15:53 Follow up: Response: No adverse reaction zb 15:52 Drug: morphine 4 mg {Note: rass 0.} Route: IVP; Site: right antecubital; zb 16:20 Follow up: Response: No adverse reaction; Pain is decreased zb 16:06 Drug: NS 0.9% 1000 ml Route: IV; Rate: 1 bolus; Site: right antecubital; zb 18:26 Follow up: Response: No adverse reaction; IV Status: Completed infusion; IV Intake: zb 1000ml 18:44 Drug: Scopolamine 1 patches Route: Transdermal; Site: affected area; zb 18:44 Follow up: Response: Medication administered at discharge. zb Intake: 18:26 IV: 1000ml; Total: 1000ml. zb Outcome: 17:58 Discharge ordered by . cp 18:25 Discharged to home ambulatory. zb 18:25 Condition: stable 18:25 Discharge instructions given to patient, family, Instructed on discharge instructions, follow up and referral plans. medication usage, Demonstrated understanding of instructions, follow-up care, medications, Prescriptions given X 3. 18:44 Patient left the ED. zb Signatures: Dispatcher [employer] EDMS Valerio Salter PA PA cp Moreno, Amanda am2 Acob, Cheryl, RN RN ca1 Brown, Zipporah, RN RN douglas Corrections: (The following items were deleted from the chart) 18:26 18:22 Response: No adverse reaction; IV Intake: 1000ml douglas cole
--- NOTE | 2020-07-23 17:59 | EDPHYS ---
Physician Documentation [facility] Name: Herlinda Porter Age: 49 yrs Sex: Female : 1970 Arrival Date: 07/23/2020 Time: 13:50 Bed 23 Private MD: Albert Leach H ED Physician Georgette Lamas HPI: 07/23 14:27 This 49 yrs old Female presents to ER via Ambulatory with complaints of cp Dizziness, Fall Injury, rib pain. 14:27 The patient presents with lightheadedness, sense of spinning. Onset: The cp symptoms/episode began/occurred 6 day(s) ago. 14:27 Context: occurred while the patient was standing, turning head upward. just prior to cp the episode the patient experienced no apparent symptoms, Patient reports fall down approximately 7 stairs yesterday after becoming dizzy. Denies LOC. C/o pain to left chest and left lateral rib area. 14:27 Associated signs and symptoms: Pertinent negatives: abdominal pain, confusion, focal cp weakness, numbness, tingling, vomiting. Patient's baseline: Neuro: alert and fully oriented, Motor: no deficits, Ambulation: walks without assistance, Speech: normal. 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 - Social history:: Smoking status: Patient denies any tobacco usage or history of. ROS: 14:30 Constitutional: Negative for body aches, chills, fever, poor PO intake. cp 14:30 Eyes: Negative for injury, pain, redness, and discharge. cp 14:30 ENT: Negative for ear pain, sore throat, difficulty swallowing, difficulty handling secretions. 14:30 Neck: Negative for pain with movement, pain at rest, stiffness. 14:30 Cardiovascular: Positive for chest pain, of the anterior aspect of left upper chest, left lateral rib pain, Negative for edema. 14:30 Respiratory: Negative for cough, shortness of breath, wheezing. 14:30 Abdomen/GI: Negative for abdominal pain, nausea, vomiting, and diarrhea, black/tarry stool, rectal bleeding. 14:30 : Negative for urinary symptoms. 14:30 Neuro: Positive for dizziness, Negative for altered mental status, headache, loss of consciousness, syncope, weakness. 14:30 All other systems are negative. Exam: 14:35 Constitutional: The patient appears in no acute distress, alert, awake, cp non-diaphoretic, non-toxic, well developed, well nourished, uncomfortable. 14:35 Head/Face: Normocephalic, atraumatic. cp 14:35 Eyes: Periorbital structures: appear normal, Pupils: equal, round, and reactive to light and accomodation, Extraocular movements: intact throughout, Conjunctiva: normal, no exudate, no injection, Sclera: no appreciated abnormality, Lids and lashes: appear normal, bilaterally. 14:35 ENT: External ear(s): are unremarkable, Nose: is normal, Posterior pharynx: Airway: no evidence of obstruction, patent. 14:35 Neck: C-spine: vertebral tenderness, is not appreciated, crepitus, is not appreciated, ROM/movement: is normal, is supple, without pain, no range of motions limitations, no nuchal rigidity. 14:35 Chest/axilla: Inspection: normal, Palpation: crepitus, is not appreciated, tenderness, that is moderate, of the anterior aspect of left upper chest, that partially reproduces the patient's complaints. 14:35 Cardiovascular: Rate: normal, Rhythm: regular, Edema: is not appreciated, JVD: is not appreciated. 14:35 Respiratory: the patient does not display signs of respiratory distress, Respirations: normal, no use of accessory muscles, no retractions, labored breathing, is not present, Breath sounds: are clear throughout, no decreased breath sounds, no stridor, no wheezing. 14:35 Abdomen/GI: Inspection: abdomen appears normal, Bowel sounds: active, all quadrants, Palpation: soft, in all quadrants, moderate abdominal tenderness, in the anterior aspect of left lateral abdomen and left upper quadrant, rebound tenderness, is not appreciated, voluntary guarding, is elicited in the anterior aspect of left lateral abdomen and left upper quadrant. 14:35 Back: vertebral tenderness, is not appreciated. 14:35 Neuro: Orientation: to person, place \T\ time. Mentation: is normal, Cerebellar function: Romberg testing is negative, heel to corrales testing is normal, Motor: moves all fours, strength is normal, Sensation: is normal. 14:36 ECG was reviewed by the Attending Physician. cp Vital Signs: 13:58 BP 144 / 96; Pulse 92; Resp 16 S; Temp 98.5(TE); Pulse Ox 98.5% on R/A; Weight 74.84 kg ca1 (R); Height 5 ft. 3 in. (160.02 cm) (R); Pain 8/10; 15:36 BP 120 / 77; Pulse 74; Resp 16; Pulse Ox 98% on R/A; zb 16:30 BP 125 / 70; Pulse 70; Resp 15; Pulse Ox 98% on R/A; zb 17:03 BP 103 / 66; Pulse 74; Resp 16; Pulse Ox 96% on R/A; zb 18:00 BP 101 / 55; Pulse 61; Resp 16; Pulse Ox 97% on R/A; zb 13:58 Body Mass Index 29.23 (74.84 kg, 160.02 cm) ca1 MDM: 14:15 Patient medically screened. cp 14:30 Differential diagnosis: cardiac arrhythmia, CVA, GI bleed, hypovolemia, idiopathic cp dizziness, near-syncope, TIA, vertigo. 17:55 Data reviewed: vital signs, nurses notes, lab test result(s), EKG, radiologic studies, cp CT scan, plain films. 17:55 Test interpretation: by ED physician or midlevel provider: ECG, plain radiologic cp studies. Counseling: I had a detailed discussion with the patient and/or guardian regarding: the historical points, exam findings, and any diagnostic results supporting the discharge/admit diagnosis, lab results, radiology results, the need for outpatient follow up, a family practitioner, to return to the emergency department if symptoms worsen or persist or if there are any questions or concerns that arise at home. 17:57 Response to treatment: the patient's symptoms have markedly improved after treatment, cp patient is well hydrated. and as a result, I will discharge patient. 07/23 14:16 Order name: Basic Metabolic Panel; Complete Time: 15:45 cp 07/23 15:46 Interpretation: Normal except: K 3.4; CL 109; GLUC 111; BUN 6; CA 7.7. cp 07/23 14:16 Order name: CBC with Diff cp 07/23 15:46 Interpretation: Normal except: RBC 5.03; HGB 9.9; HCT 33.3; MCV 66.1; MCH 19.8; MCHC cp 29.9; RDW 16.9. 07/23 14:16 Order name: LFT's; Complete Time: 15:45 cp 07/23 14:16 Order name: Magnesium; Complete Time: 15:45 cp 07/23 14:16 Order name: PT-INR; Complete Time: 15:45 cp 07/23 14:16 Order name: Troponin (emerg Dept Use Only); Complete Time: 15:45 cp 07/23 14:16 Order name: XRAY Chest (1 view); Complete Time: 16:46 cp 07/23 14:16 Order name: CT Traumagram (Head C Spine CAP W Con); Complete Time: 16:46 cp 07/23 17:30 Order name: CBC Smear Scan EDMS 07/23 14:16 Order name: EKG; Complete Time: 14:17 cp 07/23 14:16 Order name: Cardiac monitoring; Complete Time: 15:04 cp 07/23 14:16 Order name: EKG - Nurse/Tech; Complete Time: 15:04 cp 07/23 14:16 Order name: IV Saline Lock; Complete Time: 15:04 cp 07/23 14:16 Order name: Labs collected and sent; Complete Time: 15:04 cp 07/23 14:16 Order name: O2 Per Protocol; Complete Time: 15:04 cp 07/23 14:16 Order name: O2 Sat Monitoring; Complete Time: 15:31 cp EC:36 Rate is 75 beats/min. Rhythm is regular. TX interval is normal. QRS interval is normal. cp QT interval is prolonged at 420 msec. T waves are Inverted in leads III, aVR, V2, V3. Interpreted by me. Reviewed by me. Administered Medications: 15:03 Drug: morphine 4 mg {Note: Rass 0.} Route: IVP; Site: right antecubital; zb 15:52 Follow up: Response: No adverse reaction; Pain is unchanged, physician notified; RASS: zb Alert and Calm (0) 15:03 Drug: Zofran (Ondansetron) 4 mg Route: IVP; Site: right antecubital; zb 15:53 Follow up: Response: No adverse reaction; Marked relief of symptoms zb 15:03 Drug: Meclizine 25 mg Route: PO; zb 15:53 Follow up: Response: No adverse reaction zb 15:52 Drug: morphine 4 mg {Note: rass 0.} Route: IVP; Site: right antecubital; zb 16:20 Follow up: Response: No adverse reaction; Pain is decreased zb 16:06 Drug: NS 0.9% 1000 ml Route: IV; Rate: 1 bolus; Site: right antecubital; zb 18:26 Follow up: Response: No adverse reaction; IV Status: Completed infusion; IV Intake: zb 1000ml 18:44 Drug: Scopolamine 1 patches Route: Transdermal; Site: affected area; zb 18:44 Follow up: Response: Medication administered at discharge. zb Disposition: 07/23/20 17:58 Discharged to Home. Impression: Dizziness and giddiness, Fall on and from stairs and steps, Other chest pain - from fall, Unspecified abdominal pain - from fall. - Condition is Stable. - Discharge Instructions: Abdominal Pain, Adult, Chest Wall Pain, Dizziness. - Prescriptions for Ibuprofen 800 mg Oral Tablet - take 1 tablet by ORAL route every 8 hours As needed take with food; 30 tablet. Meclizine 25 mg Oral Tablet - take 1 tablet by ORAL route every 8 hours As needed; 30 tablet. Zofran 4 mg Oral Tablet - take 1 tablet by ORAL route every 12 hours As needed; 20 tablet. Tramadol 50 mg Oral Tablet - take 1 tablet by ORAL route every 8 hours as needed; 12 tablet. - Medication Reconciliation Form, Thank You Letter, Antibiotic Education, Prescription Opioid Use form. - Follow up: Private Physician; When: 2 - 3 days; Reason: Recheck today's complaints. - Problem is new. - Symptoms have improved. Addendum: 07/24/2020 19:29 Co-signature as Attending Physician, Georgette Lamas MD. m a2 Signatures: Dispatcher [employer] EDMS Valerio Salter PA PA cp Alzahri, Mohammad, MD MD ma2 Babita Mcgovern RN RN ca1 Brown, Zipporah, RN RN zb Corrections: (The following items were deleted from the chart) 07/23 15:46 15:46 Normal except: K 3.4; CL 109; GLUC 111; BUN 6. cp cp 18:44 17:58 07/23/2020 17:58 Discharged to Home. Impression: Dizziness and giddiness; Fall on zb and from stairs and steps; Other chest pain - from fall; Unspecified abdominal pain - from fall. Condition is Stable. Forms are Medication Reconciliation Form, Thank You Letter, Antibiotic Education, Prescription Opioid Use. Follow up: Private Physician; When: 2 - 3 days; Reason: Recheck today's complaints. Problem is new. Symptoms have improved. cp
[2020-07-23] MEDS ORDERED: SCOPOLAMINE HYDROBROMIDE PATCH TD ONE (18:51)
[2020-07-23 19:24] VITALS: TEMP 98.5
[2020-07-23 19:30] VITALS: BP 101/55; O2SAT 97
== END 2020-07-23 18:44 | disposition home or self-care (01) ==
LOC: ER 13:49
DX: R07.89 Other chest pain (principal); R10.9 Unspecified abdominal pain; W10.9XXA Fall (on) (from) unspecified stairs and steps, initial encounter; Y93.01 Activity, walking, marching and hiking; Y92.9 Unspecified place or not applicable; I10 Essential (primary) hypertension
CPT/HCPCS: 96361; 93005; 85025; 80048; 36415; 83735; 85610; 82565; 80076; 84484; 70450; 72125; 71260; 74177; 71045; 96375; 96374; 99284; Q9967; J7030; J2405

== ENCOUNTER 2022-02-27 09:18 | Day surgery (SDC) | payer BC ==
[2022-02-27] MEDS ORDERED: Ringers Lactate 1,000 ML IV ONE (09:58)
[2022-02-27] MEDS ORDERED: CIPROFLOXACIN 400mg IV 400 MG/200 ML BAG IV ONE (09:58)
[2022-02-27 10:14] LABS: Absolute Lymphocytes (CBC) 1.7 K/uL (0.7-4.9); Hematocrit 41.8 % (36.0-45.0); Lymphocytes % 25.5 % (15.3-44.8); MPV 8.4 fL (7.6-11.3)
[2022-02-27 10:26] LABS: Potassium 3.4 mmol/L (3.5-5.1)
--- NOTE | 2022-02-27 11:00 | P.BOP ---
Preoperative diagnosis: Left mastitis, cellulitis, abscess Postoperative diagnosis: same Primary procedure: Incision and drainage of left breast abscess 5x5cm Estimated blood loss: <10cc Specimen: pus Findings: as above Anesthesia: General Complications: None Transferred to: Recovery Room
[2022-02-27] MEDS: MORPHINE 4 MG/ML SYR ONE ×2 (12:38→12:43)
--- NOTE | 2022-02-27 12:59 | OP ---
Date of Procedure: 02/27/2022 Surgeon: Thomas Dunne MD Preoperative Diagnoses: Left breast mastitis, cellulitis, abscess. Postoperative Diagnoses: Left breast mastitis, cellulitis, abscess. Procedure: Incision and drainage of left breast abscess 5 x 5 cm. Estimated Blood Loss: Less than 10 cc. Specimen: Pus. Anesthesia: General plus local. Indication: This is the case of a 51-year-old patient who has a breast plastic surgery about 6 month s ago, developing a necrosis of the abdominoplasty flaps and also a necrosis of the part of the skin. The debridement of the abdomen was done previously and she healed from that area. The breast is st ill healing. There is still an opening on that region and then she has an entry site, she cannot pac k anymore. The wound is still open and she developed an abscess of about 5 x 5 cm just adjacent to i t. We believe the source of that could be coming from that opening. It is spreading fat in the last 24 hours. So, we booked her emergently for the incision and drainage of left breast abscess with be nefits, alternatives, and risks including, but not limited to, infection, bleeding, damage to adjacen t structures, anesthesia complication, nonhealing wound, [place], and even . She also understands th is may not relieve any symptoms. She might need more than one surgical intervention. She understood , signed a consent. She understands the need for packing. She is going to follow up in the [facility] and she was advised once again to consult her Plastic surgeon. Description Of Procedure: The patient was brought to the operating room, placed in supine position. Anesthesia was done without complication. Left breast was prepped and draped in sterile fashion. A time-out was called. An incision was made on the incision. Incision was carried down and we found this abscess present and it connected to that incision on that chronic wound that she has in the [facility] region. Maybe there was some bacteria just went through that area since there was a channel to th at region. The abscess was explored. Loculations explored. It was about 5 x 5 cm. Pus was obtaine d and cultured and area was packed with iodoform quarter of an inch. Patient tolerated the procedure well. Local anesthetic was applied. Patient sent to Recovery in stable condition. MIRTA/NABOR Voice ID: [id number] Report ID: [id number]
--- NOTE | 2022-02-27 13:05 | DS ---
Diagnoses: Left breast mastitis, cellulitis, abscess. Procedure: Incision and drainage of left breast abscess. Disposition: Home. Plan: Follow in the [facility] in this next Friday. She already has antibiotics she is t aking and the pain medication she has. She knows how to do packing since she has done that before. MIRTA/NABOR Voice ID: [id number] Report ID: [id number]
[2022-02-27 14:10] VITALS: BP 132/79; TEMP 97.8; O2SAT 98
== END 2022-02-27 14:00 | disposition home or self-care (01) ==
LOC: OR 09:18
PROVIDERS: ATTEND Surgery
PROC: 0H9U0ZZ Drainage of Left Breast, Open Approach (ICD-10-PCS; principal; 2022-02-27 12:45)
DX: N61.1 Abscess of the breast and nipple (principal); E66.9 Obesity, unspecified; G47.33 Obstructive sleep apnea (adult) (pediatric)
CPT/HCPCS: 87070; 85025; 80048; 36415; 87205; 87075; 10060; J7120; J0744

== ENCOUNTER 2023-04-14 08:45 | Emergency (ER) | payer BC ==
--- OUTSIDE RECORDS SUMMARY | 2023-04-14 08:51 | XMS REPORT | Continuity of Care Document ---
Author Name Unknown Address [address] [facility] [address] [place] [address] [facility] thconnect Address [address] [facility] [address] [place] [address] Care Team Providers Care Director Physical Therapy Name Role Phone Caleb Leach MD Primary Care Physician [phone] Referred, Self Attending Clinician Unavailable [place] Attending Clinician Unavailable [place] Attending Clinician [phone] CALEB LEACH Attending Clinician Unavailable Referred, Self Admitting Clinician Unavailable CALEB LEACH Admitting Clinician Unavailable Fani Donaldson Admitting Clinician Unavailrebecca e Payers Payer Name Policy Type Policy Number Effective Date Expirati on Date Source [facility] STATE [id number] 2021 00:00:00 Problems Condition Name Condition Details Condition Category Status Onset Date Resolution Date Last Treatment Date Treating Clinician Comments Source No known active problems No known active problems Disease [facility] Social History Social Habit Start Date Stop Date Quantity Comments Source History of tobacco use Current smoker [facility] Sexual orientation [facility] Exposure to SARS-CoV-2 (event) 2021-12-01 00:00:00 2021-12-11 13:16:00 Not sure [facility] Tobacco use and exposure 2021-12-11 00:00:00 2021-12-11 00:00:00 Smokeless tobacco non-user [facility] Alcohol intake 2021-12-11 00:00:00 2021-12-11 00:00:00 Current drinker of alcohol (finding) [facility] History of Social function 2019-05-27 00:00:00 2019-05-27 00:00:00 [facility] Alcohol Comment 2019-05-27 00:00:00 2019-05-27 00:00:00 [facility] Sex Assigned At 1970 00:00:00 1970 00:00:00 [facility] Smoking Status Start Date Stop Date Source Never smoked tobacco [facility] Ex-smoker 2019-05-27 00:00:00 2019-05-27 00:00:00 [facility] Medications Ordered Medication Name Filled Medication Name Start Date Stop Date Current Medication? Ordering Clinician Indication Dosage Frequency Signature (SIG) Comments Components Source methylPREDN ISolone (MEDROL, ANGELA,) 4 mg tablets 12-11 00:00: 00 Yes [id number] 9107 84mg Take 21 tablets by mouth SEE-INSTRU CTIONS. follow package directions [facility] methylPREDN ISolone (MEDROL, ANGELA,) 4 mg tablets 12-11 00:00: 00 Yes [id number] 9107 84mg Take 21 tablets by mouth SEE-INSTRU CTIONS. follow package directions [facility] Vital Signs Vital Name Observation Time Observation Value Comments Fara ely Systolic blood pressure 2021-12-11 18:25:00 151 mm[Hg] [facility] Diastolic blood pressure 2021-12-11 18:25:00 90 mm[Hg] [facility] Heart rate 2021-12-11 18:25:00 73 /min [facility] Body height 2021-12-11 18:25:00 160 cm [facility] Body weight 2021-12-11 18:25:00 81.647 kg [facility] BMI 2021-12-11 18:25:00 31.89 kg/m2 [facility] Plan of Care Planned Activity Planned Date Details Comments Source Future Scheduled Test 2023-02-15 11:39:28 Screening for malignant neoplasm of colon (procedure) [code = 096132296] [facility] Future Scheduled Test 2023-02-15 11:39:28 Screening for malignant neoplasm of colon (procedure) [code = 308385508] [facility] Future Scheduled Test 2023-02-15 11:39:28 Screening for malignant neoplasm of colon (procedure) [code = 347627353] [facility] Scheduled Test 2023-02-15 11:39:28 COVID-19 VACCINE (#1) [code = COVID-19 VACCINE (#1)] [facility] Future Scheduled Test 2023-02-15 11:39:28 Screening for malignant neoplasm of cervix (procedure) [code = 590682611] [facility] Future Scheduled Test 2023-02-15 11:39:28 BREAST CANCER SCREENING [code = BREAST CANCER SCREENING] [facility] Scheduled Test 2023-02-15 11:39:28 Screening for malignant neoplasm of colon (procedure) [code = 566977616] [facility] Scheduled Test 2023-02-15 11:39:28 Screening for malignant neoplasm of colon (procedure) [code = 624215839] [facility] Scheduled Test 2023-02-15 11:39:28 SHINGLES VACCINES (1 of 2) [code = SHINGLES VACCINES (1 of 2)] [facility] Scheduled Test 2023-02-15 11:39:28 INFLUENZA VACCINE (#1) [code = INFLUENZA VACCINE (#1)] [facility] Scheduled Test 2023-02-15 11:39:28 RSV VACCINES > 60 YR (1 - 1-dose 60+ series) [code = RSV VACCINES > 60 YR (1 - 1-dose 60+ series)] [facility] Scheduled Test 2022-02-21 12:27:40 HEPATITIS B VACCINES (1 of 3 - 3-dose series) [code = HEPATITIS B VACCINES (1 of 3 - 3-dose series)] [facility] Scheduled Test 2022-02-21 12:27:40 COVID-19 VACCINE (#1) [code = COVID-19 VACCINE (#1)] [facility] Scheduled Test 2022-02-21 12:27:40 Hepatitis C screening (procedure) [code = 335416302] [facility] Scheduled Test 2022-02-21 12:27:40 Screening for malignant neoplasm of cervix (procedure) [code = 074184227] [facility] Scheduled Test 2022-02-21 12:27:40 BREAST CANCER SCREENING [code = BREAST CANCER SCREENING] [facility] Future Scheduled Test 2022-02-21 12:27:40 COLONOSCOPY SCREENING [code = COLONOSCOPY SCREENING] [facility] Future Scheduled Test 2022-02-21 12:27:40 INFLUENZA VACCINE [code = INFLUENZA VACCINE] [facility] Future Scheduled Test COVID-19 VACCINE (1) [code = COVID-19 VACCINE (1)] [facility] Future Scheduled Test Hepatitis C screening (procedure) [code = 488040147] [facility] Future Scheduled Test Screening for malignant neoplasm of cervix (procedure) [code = 806823481] [facility] Future Scheduled Test INFLUENZA VACCINE [code = INFLUENZA VACCINE] [facility] Encounters Start Date/Time End Date/Time Encounter Type Admission Type Attending [facility] Care Department Encounter ID Source 2023-02-20 12:00:00 2023-02-20 12:00:00 Outpatient EL Referred, Self HCAPM SEUN [id number] [facility] 2022-02-14 08:00:00 2022-02-14 08:00:00 Outpatient EL Referred, Self HCAPM SEUN [id number] [facility] 2021-12-11 13:30:00 2021-12-11 14:13:57 Outpatient [facility] [id number] [facility] 2021-12-11 13:30:00 2021-12-11 14:13:57 Office Visit [place] [facility] [id number] [facility] 2021-01-23 12:00:00 2021-01-23 12:00:00 Outpatient EL Referred, Self HCAPM SEUN [id number] [facility] 2019-10-11 12:00:00 2019-10-11 12:00:00 Outpatient EL LEACH, CALEB HCAPM SEUN [id number] [facility]
[2023-04-14] MEDS ORDERED: NA CHLORIDE 0.9% 1,000 ML ONE ×2 (09:48→10:38)
[2023-04-14 09:55] LABS: Absolute Lymphocytes (CBC) 1.7 K/uL (0.7-4.9); Hematocrit 44.6 % (36.0-45.0); Lymphocytes % 18.8 % (15.3-44.8); MCV 98.9 fL (80-100); MPV 7.8 fL (7.6-11.3); Platelets 240 thou/uL (152-406); RBC Red Blood Cell Count 4.51 M/uL (3.86-4.86)
--- NOTE | 2023-04-14 10:02 | RAD REPORT ---
EXAM DESCRIPTION: CT - Head Brain Wo Cont - 04/14/2023 9:33 am CLINICAL HISTORY: NUMBNESS COMPARISON: No comparisons TECHNIQUE: Noncontrast head CT images were obtained without IV contrast. Multiplanar reformats were generated and reviewed. All CT scans are performed using dose optimization technique as appropriate and may include automated exposure control or mA/KV adjustment according to patient size. FINDINGS: No intracranial hemorrhage, mass, or edema. Midline structures are unremarkable. Normal ventricular caliber for age. Berg-white matter differentiation is preserved, without evidence of acute infarct. No abnormal extra- axial fluid collections. Mastoid air cells and visualized portions of the paranasal sinuses are clear. No acute bony findings. IMPRESSION: No evidence of an acute intracranial process.
[2023-04-14 10:12] LABS: Albumin 3.4 g/dL (3.4-5.0); Bilirubin Total 1.8 mg/dL (0.2-1.0); Potassium 2.8 mEq/L (3.5-5.1); Protein, Total 8.1 g/dL (6.4-8.2); Troponin High Sensitivity 9.4 pg/mL (<58.9)
[2023-04-14 10:16] LABS: Magnesium 0.9 mg/dL (1.6-2.4)
[2023-04-14] MEDS ORDERED: POTASSIUM 25 MEQ EFFERV TAB ONE (10:38)
[2023-04-14] MEDS ORDERED: Magnesium Sulfate 2gm IVPB 2 G/50 ML BAG IV ONE (10:39)
[2023-04-14] MEDS ORDERED: KCL 20 MEQ/100 mL IVPB 100 ML IV ONE (10:39)
[2023-04-14] MEDS ORDERED: CALCIUM GLUCONATE 1 GM IVPB 2 GM/100 ML BAG IV ONE (10:52)
--- NOTE | 2023-04-14 11:07 | RAD REPORT ---
EXAM DESCRIPTION: US - Abdomen Exam Limited - 04/14/2023 10:53 am CLINICAL HISTORY: ABD PAIN COMPARISON: Abdomen Pelvis W Contrast dated 11/08/2019 TECHNIQUE: Sonographic grayscale and color flow images of the right upper abdominal quadrant were o btained. FINDINGS: The gallbladder demonstrates no gallstones. No pericholecystic fluid or gallbladder wall t hickening. The common bile duct is normal measuring 4 mm. The visualized portions of the liver demonstrates diffuse parenchymal hyperechogenicity suggesting st eatosis. No findings of intrahepatic biliary dilatation. IMPRESSION: No abnormalities of the gallbladder. No intra or extrahepatic biliary ductal dilation ap preciated. Incidentally noted parenchymal hyperechogenicity of the liver suggesting steatosis.
--- NOTE | 2023-04-14 11:09 | RAD REPORT ---
EXAM DESCRIPTION: CT - Abdomen Pelvis Wo Contrast - 04/14/2023 10:38 am CLINICAL HISTORY: ABD PAIN COMPARISON: Abdomen Pelvis W Contrast dated 11/08/2019; CT ABD PELVIS W CONTRAST dated 08/12/2011 TECHNIQUE: Thin cut axial CT imaging of the abdomen and pelvis was performed without IV contrast. Mu ltiplanar reformats were generated and reviewed. All CT scans are performed using dose optimization technique as appropriate and may include automated exposure control or mA/KV adjustment according to patient size. FINDINGS: No suspicious findings in the lung bases. The liver, spleen, adrenal glands, and pancreas show no suspicious findings. Gallbladder and biliary tree are also without suspicious finding. Symmetric renal contour, without suspicious parenchymal findings within limits of noncontrast techniq ue. No evidence of radiopaque calculi or hydroureteronephrosis. No dilated bowel loops or bowel wall thickening. Right lower quadrant surgical clips, may relate to p rior cholecystectomy. Status post hysterectomy. No free air, free fluid or inflammatory stranding. No hernia, mass or bulky lymphadenopathy. The urinary bladder is without significant finding. No suspicious bony findings. IMPRESSION: No acute intra-abdominal process.
--- NOTE | 2023-04-14 12:45 | EDPHYS ---
Physician Documentation [facility] Name: Herlinda Porter Age: 52 yrs Sex: Female : 1970 Arrival Date: 04/14/2023 Time: 08:45 Bed IW10 Private MD: ED Physician Christopher Farley HPI: 04/14 09:27 This 52 yrs old Female presents to ER via Ambulatory with complaints of sb4 Numbness Of Arm, Numbness Of Lips, Numbnss of Legs. 09:37 Patient states that for about 24 hours now she has had intermittent numbness and sb4 tingling of her lower lip, bilateral arms/hands, and bilateral legs. She is not weak in her extremities, but does feel a difference in sensation. She denies any slurred speech, ataxia. Does endorse some dizziness when standing. States that she recently had her Ozempic dose increased and was vomiting a significant amount yesterday. Historical: - Allergies: 09:18 No Known Allergies; hb - Home Meds: 09:18 Ozempic 1 mg/dose (4 mg/3 mL) subcutaneous Pen Injector [Active]; Lisinopril Oral hb [Active]; - PMHx: 09:18 Hypertension; hb - Immunization history:: Adult Immunizations up to date. - Social history:: Smoking status: Patient denies any tobacco usage or history of. ROS: 09:37 Constitutional: Negative for fever, chills, and weight loss, sb4 09:37 Abdomen/GI: Positive for nausea and vomiting, 09:37 Neuro: Positive for dizziness, numbness, 09:37 All other systems are negative, Exam: 09:37 Constitutional: This is a well developed, well nourished patient who is awake, alert, sb4 and in no acute distress. Head/Face: Normocephalic, atraumatic. Eyes: Extra-ocular motions intact. Periorbital areas with no swelling, redness, or edema. ENT: Mucous membranes moist. Cardiovascular: Regular rate and rhythm with a normal S1 and S2. Respiratory: Lungs have equal breath sounds bilaterally, clear to auscultation and percussion. No rales, rhonchi or wheezes noted. No increased work of breathing, no retractions or nasal flaring. Abdomen/GI: Soft, non-tender, no distension. Skin: Warm, dry with normal turgor. Normal color with no rashes, no lesions, and no evidence of cellulitis. MS/ Extremity: Pulses equal, no cyanosis. Neurovascular intact. Full, normal range of motion. 09:37 Neuro: Orientation: is normal, to person, place, time \T\ situation. Mentation: is normal, appropriate for stated age, Memory: is normal, appropriate for stated age, Cranial nerves: extraocular movements are intact, Facial palsy and sensory deficits are absent. no gross hearing deficit,. Nystagmus is absent. Speech is clear and appropriate. Cerebellar function: is grossly normal, no acute changes, Motor: is normal, is grossly normal based on the patient's age, Sensation: numbness, that is mild, tingling, that is mild, of the right arm, left arm, right leg, left leg and mouth, Gait: is steady, seizure activity, is not displayed by the patient, Abnormal movements: there are no abnormal movements, Vital Signs: 09:01 BP 163 / 104; Pulse 74; Resp 16; Temp 97.9(TE); Pulse Ox 100% on R/A; Weight 75.75 kg; hb Height 5 ft. 3 in. ; Pain 0/10; 10:17 BP 124 / 96; Pulse 67; Resp 16; Pulse Ox 99% ; cp4 09:01 Body Mass Index 29.58 (75.75 kg, 160.02 cm) hb 09:01 Pain Scale: Adult hb MDM: 09:07 Patient medically screened. sb4 09:37 Differential diagnosis: electrolyte abnormality, dehydration, arrhythmia, CVA, adverse sb4 drug reaction. 10:34 Data reviewed: vital signs, nurses notes, lab test result(s), EKG, radiologic studies, sb4 I have discussed the patient's presentation/case with the attending Emergency Department Physician;. Care significantly affected by the following chronic conditions: Hypertension. 12:44 ED course: instructed patient to follow up with PCP in 1 week to have electrolytes sb4 rechecked. 04/14 09:24 Order name: CBC with Diff; Complete Time: 09:57 sb4 04/14 09:24 Order name: CMP; Complete Time: 10:35 sb4 04/14 09:24 Order name: Magnesium; Complete Time: 10:35 sb4 04/14 09:24 Order name: Phosphorus; Complete Time: 10:35 sb4 04/14 09:24 Order name: Troponin High Sensitivity; Complete Time: 10:35 sb4 04/14 09:26 Order name: Glucose, Ancillary Testing; Complete Time: 09:26 EDMS 04/14 10:28 Order name: Add On-Lab sb4 04/14 10:31 Order name: Lipase; Complete Time: 10:35 EDMS 04/14 09:24 Order name: Head Brain Wo Cont CT; Complete Time: 10:05 sb4 04/14 10:28 Order name: Abdomen Limited US; Complete Time: 11:11 sb4 04/14 10:30 Order name: CT Abd/Pelvis - Without Contrast; Complete Time: 11:11 sb4 04/14 09:24 Order name: IV Start; Complete Time: 09:46 sb4 04/14 09:28 Order name: EKG - Nurse/Tech; Complete Time: 09:51 sb4 EC:49 Rate is 69 beats/min. Rhythm is regular, Normal Sinus Rhythm. IA interval is normal at sb4 124 msec. QRS interval is normal at 78 msec. QT interval is normal at 460 msec. No Q waves. T waves are Normal. No ST changes noted. Clinical impression: Normal ECG and No evidence of ischemia. Interpreted by me. Reviewed by me. Administered Medications: 09:46 Drug: NS 0.9% IV 1000 ml IV at 1 bolus Per protocol; 1000 mL bolus Route: IV; Rate: 1 cp4 bolus; Site: right antecubital; 10:33 Drug: Magnesium Sulfate IVPB 2 grams IVPB once over 2 hrs Route: IVPB; Infused Over: 2 cp4 hrs; Site: right antecubital; 10:33 Drug: NS 0.9% IV 1000 ml IV at 1 bolus Per protocol; 1000 mL bolus Route: IV; Rate: 1 cp4 bolus; Site: left antecubital; 10:41 Drug: Potassium Chloride IV 20 mEq IV at calculated rate once; administer over 1-2 cp4 hours Route: IV; Rate: calculated rate; Site: left antecubital; 10:56 Drug: Potassium PO Effervescent Tablet 50 mEq PO once; dissolve in 4 ounces of water or cp4 juice Route: PO; 12:42 Follow up: Response: No adverse reaction cp4 10:57 Drug: Calcium Gluconate IVPB 2 grams IVPB once over 60 mins; (mix in NS 100 mL) Route: cp4 IVPB; Infused Over: 60 mins; Site: right antecubital; 12:42 Follow up: Response: No adverse reaction; IV Status: Completed infusion cp4 Disposition: 17:06 Co-signature as Attending Physician, Christopher Farley MD I reviewed the patient's care rn provided by the Advanced Practice Provider and agree with the diagnosis and treatment plan. Disposition Summary: 04/14/23 12:45 Discharge Ordered Notes: Location: Home sb4 Problem: new sb4 Symptoms: have improved sb4 Condition: Stable sb4 Diagnosis - Paresthesia of skin sb4 - Hypocalcemia sb4 - Hypomagnesemia sb4 - Hypokalemia sb4 - Dehydration sb4 Followup: sb4 - With: Emergency Department - When: As needed - Reason: Trouble breathing, Worsening of condition Discharge Instructions: - Discharge Summary Sheet sb4 - Dehydration, Adult sb4 - Potassium Content of Foods sb4 - Hypomagnesemia sb4 - Paresthesia sb4 - Hypocalcemia, Adult sb4 - Hypokalemia sb4 Forms: - Medication Reconciliation Form sb4 - Thank You Letter sb4 - Antibiotic Education sb4 - Prescription Opioid Use sb4 - Patient Portal Instructions sb4 - Leadership Thank You Letter sb4 Prescriptions: - Zofran 4 mg Oral Tablet - take 1 tablet ORAL route every 12 hours As needed; 20 tablet; Refills: 0, sb4 Product Selection Permitted Signatures: Dispatcher [employer] EDMS Christopher Farley MD MD rn Baxter, Heather, RN RN hb Brown, Sophia, PAPrasannaC PAKathryn sb4 Samara Jewell cp4 Corrections: (The following items were deleted from the chart) 10:34 10:29 Abdomen Pelvis W Con+CT.RAD.BRZ ordered. EDMS EDMS
--- NOTE | 2023-04-14 12:45 | ER ---
Nurse's Notes [facility] Name: Herlinda Porter Age: 52 yrs Sex: Female : 1970 Arrival Date: 04/14/2023 Time: 08:45 Bed IW10 Private MD: Diagnosis: Paresthesia of skin;Hypocalcemia;Hypomagnesemia;Hypokalemia;Dehydration Presentation: 04/14 09:01 Chief complaint: Intermittent numbness and tingling of bottom lip, bilateral arms and hb legs x 2 days. VAN negative. BGL 108. Coronavirus screen: At this time, the client does not indicate any symptoms associated with coronavirus-19. Ebola Screen: No symptoms or risks identified at this time. Initial Sepsis Screen: Does the patient meet any 2 criteria? No. Patient's initial sepsis screen is negative. Does the patient have a suspected source of infection? No. Patient's initial sepsis screen is negative. Risk Assessment: Do you want to hurt yourself or someone else? Patient reports no desire to harm self or others. Onset of symptoms was April 13, 2023. 09:01 Method Of Arrival: Ambulatory hb 09:01 Acuity: MARU 3 hb Historical: - Allergies: 09:18 No Known Allergies; hb - Home Meds: 09:18 Ozempic 1 mg/dose (4 mg/3 mL) subcutaneous Pen Injector [Active]; Lisinopril Oral hb [Active]; - PMHx: 09:18 Hypertension; hb - Immunization history:: Adult Immunizations up to date. - Social history:: Smoking status: Patient denies any tobacco usage or history of. Screenin:47 [facility] ED Fall Risk Assessment (Adult) History of falling in the last 3 months, cp4 including since admission No falls in past 3 months (0 pts) Confusion or Disorientation No (0 pts) Intoxicated or Sedated No (0 pts) Impaired Gait No (0 pts) Mobility Assist Device Used No (0 pt) Altered Elimination No (0 pt) Score/Fall Risk Level 0 - 2 = Low Risk Oriented to surroundings, Maintained a safe environment, Educated pt \T\ family on fall prevention, incl call for assistance when getting out of bed, Provided non-skid footwear. Abuse screen: Denies threats or abuse. Nutritional screening: No deficits noted. Tuberculosis screening: No symptoms or risk factors identified. Assessment: 09:47 General: Appears in no apparent distress. Behavior is calm, cooperative, appropriate cp4 for age. Pain: Denies pain. Vital Signs: 09:01 BP 163 / 104; Pulse 74; Resp 16; Temp 97.9(TE); Pulse Ox 100% on R/A; Weight 75.75 kg; hb Height 5 ft. 3 in. ; Pain 0/10; 10:17 BP 124 / 96; Pulse 67; Resp 16; Pulse Ox 99% ; cp4 09:01 Body Mass Index 29.58 (75.75 kg, 160.02 cm) hb 09:01 Pain Scale: Adult hb ED Course: 08:46 Patient arrived in ED. rg4 08:58 Opal Barrios PA-C is PHCP. sb4 08:58 Conrad Ryder DO is Attending Physician. sb4 09:18 Triage completed. hb 09:25 Samara Jewell is Primary Nurse. cp4 09:34 Head Brain Wo Cont CT In Process Unspecified. EDMS 09:46 Troponin High Sensitivity Sent. cp4 09:46 Phosphorus Sent. cp4 09:47 Magnesium Sent. cp4 09:47 CMP Sent. cp4 09:47 CBC with Diff Sent. cp4 09:47 No provider procedures requiring assistance completed. Inserted saline lock: 20 gauge cp4 in right antecubital area, using aseptic technique. Blood collected. 09:47 Bed in low position. Call light in reach. Side rails up X 1. cp4 09:51 EKG done, by ED staff, reviewed by Opal Barrios PA-C. em1 10:30 Christopher Farley MD is Attending Physician. sb4 10:40 CT Abd/Pelvis - Without Contrast In Process Unspecified. EDMS 10:42 Add On-Lab Sent. cp4 10:55 Abdomen Limited US In Process Unspecified. EDMS Administered Medications: 09:46 Drug: NS 0.9% IV 1000 ml IV at 1 bolus Per protocol; 1000 mL bolus Route: IV; Rate: 1 cp4 bolus; Site: right antecubital; 10:33 Drug: Magnesium Sulfate IVPB 2 grams IVPB once over 2 hrs Route: IVPB; Infused Over: 2 cp4 hrs; Site: right antecubital; 10:33 Drug: NS 0.9% IV 1000 ml IV at 1 bolus Per protocol; 1000 mL bolus Route: IV; Rate: 1 cp4 bolus; Site: left antecubital; 10:41 Drug: Potassium Chloride IV 20 mEq IV at calculated rate once; administer over 1-2 cp4 hours Route: IV; Rate: calculated rate; Site: left antecubital; 10:56 Drug: Potassium PO Effervescent Tablet 50 mEq PO once; dissolve in 4 ounces of water or cp4 juice Route: PO; 12:42 Follow up: Response: No adverse reaction cp4 10:57 Drug: Calcium Gluconate IVPB 2 grams IVPB once over 60 mins; (mix in NS 100 mL) Route: cp4 IVPB; Infused Over: 60 mins; Site: right antecubital; 12:42 Follow up: Response: No adverse reaction; IV Status: Completed infusion cp4 Medication: 09:47 VIS not applicable for this client. cp4 Outcome: 12:45 Discharge ordered by MD. rangel 15:18 Patient left the ED. hb Signatures: Dispatcher [employer] Wilmar Almonte em1 Bertha Campos RN RN Bess Whitaker4 Opal Barrios, PA-Wm PA-C sb4 Samara Jewell cp4
[2023-04-14 15:26] VITALS: BP 124/96; TEMP 97.9; O2SAT 99
--- NOTE | 2023-04-15 13:45 | EKG ---
Test Date: 2023-04-14 Test Time: 09:46:18 Utilization Review Rn: RAZ MEASUREMENT RESULTS: Intervals: Rate: 69 MO: 124 QRSD: 78 QT: 430 QTc: 460 Excel: P: 9 MO: 124 QRS: 6 T: 12 INTERPRETIVE STATEMENTS: Normal sinus rhythm Low voltage QRS Cannot rule out Anterior infarct, age undetermined Abnormal ECG Compared to ECG 07/23/2020 13:32:28 Low QRS voltage now present Myocardial infarct finding now present Prolonged QT interval no longer present Electronically Signed On 04-15-23 13:40:[address] AGENT by Jeanmarie Stiles
== END 2023-04-14 15:18 | disposition home or self-care (01) ==
LOC: ER 08:45
DX: E83.51 Hypocalcemia (principal); E83.42 Hypomagnesemia; E87.6 Hypokalemia; E86.0 Dehydration; R11.2 Nausea with vomiting, unspecified; I10 Essential (primary) hypertension
CPT/HCPCS: 93005; 85025; 36415; 83735; 84100; 82947; 84484; 83690; 80053; 70450; 74176; 76705; 99284; J3480; J3475; J0612; J7030 ×2

== ENCOUNTER → 2023-07-29 | Emergency (ER) | payer OTHER ==
[~2023-07-29] MED LIST: CALCIUM GLUCONATE 1 GM IVPB 2 GM/100 ML BAG IV ONE; KCL 20 MEQ/100 mL IVPB 100 ML IV ONE; Magnesium Sulfate 2gm IVPB 2 G/50 ML BAG IV ONE
[2023-07-29 10:17] LABS: Absolute Basophils 0.1 K/uL (0-0.5); Absolute Eosinophils 0.1 K/uL (0-0.5); Absolute Lymphocytes (CBC) 1.7 K/uL (0.7-4.9); Absolute Monocytes 0.6 K/uL (0.1-1.3); Absolute Neutrophil 5.1 K/uL (1.8-8.0); Basophils % 0.9 % (0-1.3); Eosinophils % 0.9 % (0-4.4); Lymphocytes % 22.9 % (15.3-44.8); MCH 33.5 pg (27.0-35.0); MCV 98.4 fL (80-100); MPV 8.1 fL (7.6-11.3); Monocytes % 8.1 % (3.3-12.3); Neutrophils % 67.2 % (41.7-73.7); Nucleated Red Blood Cells % 0.1 % (0-0); Platelets 265 thou/uL (152-406); RBC Red Blood Cell Count 4.47 M/uL (3.86-4.86); Red Cell Distribution Width 15.9 % (12.1-15.2)
[2023-07-29 10:45] LABS: Albumin 3.4 g/dL (3.4-5.0); Albumin/Globulin Ratio 0.8 (1.1-1.8); Anion Gap 10.8 mEq/L (5.0-15.0); Bilirubin Direct 0.6 mg/dL (0-0.2); Bilirubin Indirect, Calculated 1.3 mg/dL (0.2-0.8); Bilirubin Total 1.9 mg/dL (0.2-1.0); Globulin 4.1 g/dL (2.3-3.5); Magnesium 1.3 mg/dL (1.6-2.4); Potassium 2.8 mEq/L (3.5-5.1); Protein, Total 7.5 g/dL (6.4-8.2); Troponin High Sensitivity 7.7 pg/mL (<58.9)
--- NOTE | 2023-07-29 13:54 | EDPHYS ---
Physician Documentation [facility] Name: Herlinda Porter Age: 52 yrs Sex: Female : 1970 Arrival Date: 07/29/2023 Time: 09:44 Bed 13 Private MD: ED Physician Yesica Rodriguez HPI: 07/28 10:00 This 52 yrs old Female presents to ER via Ambulatory with complaints of sp3 Numbness Of Hand, Numbness - of feet. 10:00 52-year-old female with history of hypertension and multiple episodes of electrolyte sp3 imbalance that is still being worked up by her primary care physician with last episode in April 2023 who was seen here for hypomagnesia anemia, hypokalemia and low calcium. Patient symptoms present with numbness and tingling in all extremities particularly her hands. 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 She denies any other symptoms including headache, neck pain, chest pain, shortness of breath, motor dysfunction, back pain, abdominal pain, nausea, vomit, diarrhea, syncope, near syncope, speech abnormality, memory loss, cognitive dysfunction, or any other signs or symptoms on ROS at this time.. Historical: - Allergies: 09:59 No Known Allergies; hb - Home Meds: 09:59 Ozempic 1 mg/dose (4 mg/3 mL) subcutaneous Pen Injector [Active]; hb - PMHx: 09:59 Hypertension; hb - Immunization history:: Adult Immunizations up to date. - Social history:: Smoking status: Patient denies any tobacco usage or history of. ROS: 10:01 Constitutional: Negative for fever, chills, and weight loss, Eyes: Negative for injury, sp3 pain, redness, and discharge, ENT: Negative for injury, pain, and discharge, Neck: Negative for injury, pain, and swelling, Cardiovascular: Negative for chest pain, palpitations, and edema, Respiratory: Negative for shortness of breath, cough, wheezing, and pleuritic chest pain, Abdomen/GI: Negative for abdominal pain, nausea, vomiting, diarrhea, and constipation, Back: Negative for injury and pain, MS/Extremity: Negative for injury and deformity, Skin: Negative for injury, rash, and discoloration, Psych: Negative for depression, anxiety, suicide ideation, homicidal ideation, and hallucinations, Allergy/Immunology: Negative for hives, rash, and allergies, Endocrine: Negative for neck swelling, polydipsia, polyuria, polyphagia, and marked weight changes, 10:01 All other systems are negative, Exam: 10:03 Constitutional: This is a well developed, well nourished patient who is awake, alert, sp3 and in no acute distress. Head/Face: Normocephalic, atraumatic. Eyes: Pupils equal round and reactive to light, extra-ocular motions intact. Lids and lashes normal. Conjunctiva and sclera are non-icteric and not injected. Cornea within normal limits. Periorbital areas with no swelling, redness, or edema. ENT: Nares patent. No nasal discharge, no septal abnormalities noted. External auditory canals are clear. Oropharynx with no redness, swelling, or masses, exudates, or evidence of obstruction, uvula midline. Mucous membranes moist. Neck: Trachea midline, no thyromegaly or masses palpated, and no cervical lymphadenopathy. Supple, full range of motion without nuchal rigidity, or vertebral point tenderness. No Meningismus. Chest/axilla: Normal chest wall appearance and motion. Nontender with no deformity. No lesions are appreciated. Cardiovascular: Regular rate and rhythm with a normal S1 and S2. No gallops, murmurs, or rubs. Normal PMI, no JVD. No pulse deficits. Respiratory: Lungs have equal breath sounds bilaterally, clear to auscultation and percussion. No rales, rhonchi or wheezes noted. No increased work of breathing, no retractions or nasal flaring. Abdomen/GI: Soft, non-tender, with normal bowel sounds. No distension or tympany. No guarding or rebound. No evidence of tenderness throughout. Back: No spinal tenderness. No costovertebral tenderness. Full range of motion. Skin: Warm, dry with normal turgor. Normal color with no rashes, no lesions, and no evidence of cellulitis. Psych: Awake, alert, with orientation to person, place and time. Behavior, mood, and affect are within normal limits. 10:03 Musculoskeletal/extremity: Patient has subjective numbness but does have 2 point discrimination bilateral upper extremities. Motor function is preserved with no abnormality. Vascular exam is also normal with radial pulses and distal capillary refill.. 10:14 ECG was reviewed by the Attending Physician. EKG demonstrates normal sinus rhythm at 60 sp3 bpm with normal intervals, leftward axis, normal QRS and nonspecific diffuse ST's ST changes without evidence of acute ischemia. QTc is noted to be 469 still mildly elevated. Vital Signs: 09:57 BP 132 / 87; Pulse 65; Resp 16; Temp 98.9(O); Pulse Ox 100% on R/A; Weight 68.95 kg; hb Height 5 ft. 3 in. ; Pain 0/10; 11:20 Pulse 67; Resp 18; Pulse Ox 99% on R/A; mb9 11:30 BP 117 / 83; Pulse 66; Resp 17; Pulse Ox 98% on R/A; nj1 13:06 BP 126 / 92; Pulse 79; Resp 18; Pulse Ox 100% on R/A; mb9 13:52 BP 124 / 82; Pulse 69; Resp 18; Pulse Ox 100% on R/A; mb9 09:57 Body Mass Index 26.93 (68.95 kg, 160.02 cm) hb 09:57 Pain Scale: Adult hb MDM: 09:50 Patient medically screened. sp3 10:03 Data reviewed: vital signs, nurses notes. ED course: 52-year-old female with bilateral sp3 paresthesias consistent with prior episode. Patient is likely pathology is electrolyte abnormalities. Consider this versus other kidney pathology, CO2/anxiety induced, among others. Workup will include EKG and extensive blood work looking at all electrolytes. Vital signs are normal and patient is in no acute distress. Will replenish any electrolytes that need so along with any other interventions with probable discharge.. 07/28 09:59 Order name: Basic Metabolic Panel; Complete Time: 10:48 07/28 09:59 Order name: CBC with Diff; Complete Time: 10:48 3 07/28 09:59 Order name: LFT's; Complete Time: 10:48 3 07/28 09:59 Order name: Magnesium; Complete Time: 10:48 07/28 09:59 Order name: Troponin HS; Complete Time: 10:48 3 07/28 09:59 Order name: EKG; Complete Time: 09:59 3 07/28 09:59 Order name: Cardiac monitoring; Complete Time: 10:12 07/28 09:59 Order name: EKG - Nurse/Tech; Complete Time: 10:12 sp3 07/28 09:59 Order name: IV Saline Lock; Complete Time: 10:12 sp3 07/28 09:59 Order name: Labs collected and sent; Complete Time: 10:12 sp3 07/28 09:59 Order name: O2 Sat Monitoring; Complete Time: 10:14 sp3 Administered Medications: 11:23 Drug: Magnesium Sulfate IVPB 2 grams IVPB once over 2 hrs Route: IVPB; Infused Over: 2 nj1 hrs; Site: right forearm; 11:24 Drug: Calcium Gluconate IVPB 2 grams IVPB once over 60 mins; (mix in NS 100 mL) Route: nj1 IVPB; Infused Over: 60 mins; Site: right forearm; 13:11 Follow up: Response: No adverse reaction; IV Status: Completed infusion mb9 11:25 Drug: Potassium Chloride IV 20 mEq IV at calculated rate once; administer over 1-2 nj1 hours Route: IV; Rate: calculated rate; Site: right forearm; Disposition Summary: 07/29/23 13:54 Discharge Ordered Notes: Location: Home sp3 Condition: Stable sp3 Diagnosis - Hypokalemia, hypomagnesemia, hypocalcemia, paresthesias sp3 Followup: sp3 - With: Private Physician - When: Upon discharge from the Emergency Department - Reason: Continuance of care Discharge Instructions: - Discharge Summary Sheet sp3 - Hypomagnesemia sp3 - Hypocalcemia, Adult sp3 - Hypokalemia sp3 Forms: - Medication Reconciliation Form sp3 - Thank You Letter sp3 - Antibiotic Education sp3 - Prescription Opioid Use sp3 - Patient Portal Instructions sp3 - Leadership Thank You Letter sp3 Signatures: Dispatcher [employer] Bertha Lucas RN RN Yesica Rodriguez MD MD sp3 Aurelia Kunz RN RN nj1 Milady Villegas RN mb9
--- NOTE | 2023-07-29 13:54 | ER ---
Nurse's Notes [facility] Name: Herlinda Porter Age: 52 yrs Sex: Female : 1970 Arrival Date: 07/29/2023 Time: 09:44 Bed 13 Private MD: Diagnosis: Hypokalemia, hypomagnesemia, hypocalcemia, paresthesias Presentation: 07/28 09:57 Chief complaint: Bilateral hand and foot numbness upon waking today. Coronavirus hb screen: At this time, the client does not indicate any symptoms associated with coronavirus-19. Ebola Screen: No symptoms or risks identified at this time. Initial Sepsis Screen: Does the patient meet any 2 criteria? No. Patient's initial sepsis screen is negative. Does the patient have a suspected source of infection? No. Patient's initial sepsis screen is negative. Risk Assessment: Do you want to hurt yourself or someone else? Patient reports no desire to harm self or others. Onset of symptoms was July 29, 2023. 09:57 Method Of Arrival: Ambulatory hb 09:57 Acuity: MARU 3 hb Triage Assessment: 09:59 General: Appears in no apparent distress. Behavior is calm, cooperative. Pain: Denies hb pain. Neuro: Level of Consciousness is awake, alert, obeys commands, Oriented to person, place, time, situation, Reports numbness in right hand, left hand, right foot and left foot. Cardiovascular: Patient's skin is warm and dry. Respiratory: Respiratory effort is even, unlabored, Respiratory pattern is regular, symmetrical. Historical: - Allergies: 09:59 No Known Allergies; hb - Home Meds: 09:59 Ozempic 1 mg/dose (4 mg/3 mL) subcutaneous Pen Injector [Active]; hb - PMHx: 09:59 Hypertension; hb - Immunization history:: Adult Immunizations up to date. - Social history:: Smoking status: Patient denies any tobacco usage or history of. Screenin:07 [facility] ED Fall Risk Assessment (Adult) History of falling in the last 3 months, mb9 including since admission No falls in past 3 months (0 pts) Confusion or Disorientation No (0 pts) Intoxicated or Sedated No (0 pts) Impaired Gait No (0 pts) Mobility Assist Device Used No (0 pt) Altered Elimination No (0 pt) Score/Fall Risk Level 0 - 2 = Low Risk Oriented to surroundings, Maintained a safe environment, Educated pt \T\ family on fall prevention, incl call for assistance when getting out of bed. Abuse screen: Denies threats or abuse. Nutritional screening: No deficits noted. Tuberculosis screening: No symptoms or risk factors identified. Assessment: 10:10 General: Appears in no apparent distress. comfortable, Behavior is calm, cooperative, nj1 appropriate for age. 10:10 Pain: Denies pain. Neuro: Level of Consciousness is awake, alert, obeys commands, nj1 Oriented to person, place, time, situation, Moves all extremities. Speech is normal, Facial symmetry appears normal, Reports Numbness to feet and hands.. Cardiovascular: Patient's skin is warm and dry. Respiratory: Airway is patent Respiratory effort is even, unlabored. 11:25 Reassessment: Patient appears in no apparent distress at this time. Patient and/or nj1 family updated on plan of care and expected duration. Pain level reassessed. Patient is alert, oriented x 3, equal unlabored respirations, skin warm/dry/pink. 12:03 Reassessment: No changes from previously documented assessment. Patient and/or family mb9 updated on plan of care and expected duration. Pain level reassessed. Patient is alert, oriented x 3, equal unlabored respirations, skin warm/dry/pink. 13:06 Reassessment: Patient appears in no apparent distress at this time. No changes from mb9 previously documented assessment. Patient and/or family updated on plan of care and expected duration. Pain level reassessed. Patient is alert, oriented x 3, equal unlabored respirations, skin warm/dry/pink. Vital Signs: 09:57 BP 132 / 87; Pulse 65; Resp 16; Temp 98.9(O); Pulse Ox 100% on R/A; Weight 68.95 kg; hb Height 5 ft. 3 in. ; Pain 0/10; 11:20 Pulse 67; Resp 18; Pulse Ox 99% on R/A; mb9 11:30 BP 117 / 83; Pulse 66; Resp 17; Pulse Ox 98% on R/A; nj1 13:06 BP 126 / 92; Pulse 79; Resp 18; Pulse Ox 100% on R/A; mb9 13:52 BP 124 / 82; Pulse 69; Resp 18; Pulse Ox 100% on R/A; mb9 09:57 Body Mass Index 26.93 (68.95 kg, 160.02 cm) hb 09:57 Pain Scale: Adult hb ED Course: 09:47 Patient arrived in ED. im 09:49 Yesica Rodriguez MD is Attending Physician. sp3 09:59 Triage completed. hb 09:59 Arm band placed on. hb 10:00 Client placed on continuous cardiac and pulse oximetry monitoring. NIBP monitoring hb applied. alarm security or surveillance monitor on. Pulse ox on. NIBP on. 10:00 Patient maintains SpO2 saturation greater than 95% on room air. Thermoregulation: warm hb blanket given to patient. 10:10 Inserted saline lock: 22 gauge in right forearm, using aseptic technique. Blood nj1 collected. 10:14 EKG done, by ED staff, reviewed by Yesica Rodriguez MD. nj1 10:30 Placed in gown. Bed in low position. Call light in reach. Side rails up X 1. Provided mb9 Education on: press call light if needing anything. Client placed on continuous cardiac and pulse oximetry monitoring. NIBP monitoring applied. alarm security or surveillance monitor on. 10:49 Aurelia uKnz, RN is Primary Nurse. nj1 13:11 Primary Nurse role handed off by Aurelia Kunz, BRI mb9 13:11 Milady Villegas, RN is Primary Nurse. mb9 14:07 No provider procedures requiring assistance completed. IV discontinued, intact, mb9 bleeding controlled, No redness/swelling at site. Pressure dressing applied. Administered Medications: 11:23 Drug: Magnesium Sulfate IVPB 2 grams IVPB once over 2 hrs Route: IVPB; Infused Over: 2 nj1 hrs; Site: right forearm; 11:24 Drug: Calcium Gluconate IVPB 2 grams IVPB once over 60 mins; (mix in NS 100 mL) Route: nj1 IVPB; Infused Over: 60 mins; Site: right forearm; 13:11 Follow up: Response: No adverse reaction; IV Status: Completed infusion mb9 11:25 Drug: Potassium Chloride IV 20 mEq IV at calculated rate once; administer over 1-2 nj1 hours Route: IV; Rate: calculated rate; Site: right forearm; Medication: 14:08 VIS not applicable for this client. mb9 Outcome: 13:54 Discharge ordered by . sp3 14:08 Discharged to home ambulatory, mb9 14:08 Condition: stable 14:08 Discharge instructions given to patient, Instructed on discharge instructions, follow up and referral plans. Demonstrated understanding of instructions, follow-up care, 14:11 Patient left the ED. mb9 Signatures: Bertha Campos RN RN Yesica Rodriguez MD MD sp3 Milady Villegas RN RN mb9 Aurelia Kunz RN RN nj1 Mary Kay Vela
[2023-07-29 14:36] VITALS: BP 124/82; TEMP 98.9; O2SAT 100
--- NOTE | 2023-07-29 17:00 | EKG ---
Test Date: 2023-07-29 Test Time: 09:55:28 It Security Manager: JUDITH MEASUREMENT RESULTS: Intervals: Rate: 59 WV: 130 QRSD: 78 QT: 474 QTc: 469 [place]: P: 16 WV: 130 QRS: -4 T: -8 INTERPRETIVE STATEMENTS: Sinus bradycardia Low voltage QRS Nonspecific T wave abnormality Prolonged QT Abnormal ECG Compared to ECG 04/14/2023 09:46:18 T-wave abnormality now present Prolonged QT interval now present Sinus rhythm no longer present Myocardial infarct finding no longer present Electronically Signed On 07-29-23 16:59:39 CDT by Jeanmarie Stiles
== END ==
LOC: ER 09:44
DX: E87.6 Hypokalemia (principal); E83.42 Hypomagnesemia; E83.51 Hypocalcemia; I10 Essential (primary) hypertension
CPT/HCPCS: 93005; 85025; 80048; 36415; 83735; 80076; 84484; J3480; J3475; J0612

== ENCOUNTER 2023-10-31 09:42 | Emergency (ER) | payer OTHER ==
[2023-10-31] MEDS ORDERED: KETOROLAC 30 MG/ML INJ ONE (10:13)
[2023-10-31 10:34] LABS: Absolute Eosinophils 0.1 K/uL (0-0.5); Absolute Lymphocytes (CBC) 1.7 K/uL (0.7-4.9); Absolute Monocytes 0.5 K/uL (0.1-1.3); Absolute Neutrophil 3.8 K/uL (1.8-8.0); Basophils % 0.8 % (0-1.3); Eosinophils % 1.3 % (0-4.4); Hematocrit 43.8 % (36.0-45.0); Lymphocytes % 27.3 % (15.3-44.8); MCH 36.2 pg (27.0-35.0); MCHC 34.3 g/dL (32.0-36.0); MCV 105.6 fL (80-100); Monocytes % 7.8 % (3.3-12.3); Neutrophils % 62.8 % (41.7-73.7); Nucleated Red Blood Cells % 0.1 % (0-0); Platelets 250 thou/uL (152-406); RBC Red Blood Cell Count 4.15 M/uL (3.86-4.86); Red Cell Distribution Width 15.3 % (12.1-15.2)
[2023-10-31 10:44] LABS: Albumin 3.1 g/dL (3.4-5.0); Albumin/Globulin Ratio 0.8 (1.1-1.8); Bilirubin Direct 0.6 mg/dL (0-0.2); Bilirubin Total 2.6 mg/dL (0.2-1.0); Globulin 3.8 g/dL (2.3-3.5); Magnesium 1.5 mg/dL (1.6-2.4); Protein, Total 6.9 g/dL (6.4-8.2); Troponin High Sensitivity 7.4 pg/mL (<58.9)
[2023-10-31 11:39] LABS: Blood Morphology Comment NOT SEEN (NOT SEEN); Platelet Estimate ADEQ; White Blood Cell Scan OK (OK)
--- NOTE | 2023-10-31 11:59 | RAD REPORT ---
EXAM DESCRIPTION: RAD - Ribs Left - 10/31/2023 10:25 am CLINICAL HISTORY: PAIN COMPARISON: Chest Single View dated 10/31/2023 TECHNIQUE: Left ribs, 2 views. FINDINGS: No displaced rib fracture is evident. No aggressive rib lesion. No underlying pneumothorax, effusion, infiltrate or pulmonary contusion. IMPRESSION: Negative left rib series.
--- NOTE | 2023-10-31 12:00 | RAD REPORT ---
EXAM DESCRIPTION: NIKHILChest Single View10/31/2023 10:25 am CLINICAL HISTORY: CHEST PAIN COMPARISON: Chest Single View dated 07/23/2020; Chest Pa And Lat (2 Views) dated 04/10/2017; CHEST SIN GLE VIEW dated 08/12/2011; ABDOMEN ACUTE SERIES dated 05/10/2005 TECHNIQUE: Portable AP view of the chest. FINDINGS: The lungs are clear. No pneumothorax or effusion. The cardiomediastinal contours are unre markable. IMPRESSION: No acute cardiopulmonary process.
--- NOTE | 2023-10-31 12:53 | RAD REPORT ---
EXAM DESCRIPTION: CT - Abdomen Pelvis W Contrast - 10/31/2023 12:32 pm CLINICAL HISTORY: Abdominal pain COMPARISON: 2019 TECHNIQUE: Computed axial tomography of the abdomen pelvis was obtained. 100 cc Isovue-300 was admin istered intravenously. Oral contrast was not requested which limits evaluation of bowel and appendix All CT scans are performed using dose optimization technique as appropriate and may include automated exposure control or mA/KV adjustment according to patient size. FINDINGS: Mild fatty liver The spleen, pancreas, adrenals and kidneys unremarkable Hysterectomy. No adnexal mass There is no evidence of diverticulitis. IMPRESSION: No acute abnormality is displayed.
--- NOTE | 2023-10-31 13:17 | ER ---
Nurse's Notes [facility] Name: Herlinda Porter Age: 53 yrs Sex: Female : 1970 Arrival Date: 10/31/2023 Time: 09:42 Bed 18 Private MD: Diagnosis: Chest wall pain Presentation: 10/30 09:56 Chief complaint: Left sided chest wall pain that is worse with cough or deep breathing hb x 3 days. Pain began to radiate to LUQ and left shoulder last night. Coronavirus screen: At this time, the client does not indicate any symptoms associated with coronavirus-19. Ebola Screen: No symptoms or risks identified at this time. Initial Sepsis Screen: Does the patient meet any 2 criteria? No. Patient's initial sepsis screen is negative. Does the patient have a suspected source of infection? No. Patient's initial sepsis screen is negative. Risk Assessment: Do you want to hurt yourself or someone else? Patient reports no desire to harm self or others. Onset of symptoms was October 28, 2023. 09:56 Method Of Arrival: Ambulatory hb 09:56 Acuity: MARU 3 hb Historical: - Allergies: 09:58 No Known Allergies; hb - Home Meds: 09:58 Ozempic 1 mg/dose (4 mg/3 mL) subcutaneous Pen Injector [Active]; lisinopril Oral hb [Active]; - PMHx: 09:58 Hypertension; hb - Immunization history:: Adult Immunizations up to date. - Infectious Disease History:: Denies. - Social history:: Smoking status: Patient denies any tobacco usage or history of. - Family history:: not pertinent. Screenin:20 [facility] ED Fall Risk Assessment (Adult) History of falling in the last 3 months, nj1 including since admission No falls in past 3 months (0 pts) Confusion or Disorientation No (0 pts) Intoxicated or Sedated No (0 pts) Impaired Gait No (0 pts) Mobility Assist Device Used No (0 pt) Altered Elimination No (0 pt) Score/Fall Risk Level 0 - 2 = Low Risk Oriented to surroundings, Maintained a safe environment, Hourly rounding (assess needs \T\ fall precautionary measures) done. Abuse screen: Denies threats or abuse. Denies injuries from another. Nutritional screening: No deficits noted. Tuberculosis screening: No symptoms or risk factors identified. Assessment: 10:10 General: Appears in no apparent distress. comfortable, Behavior is calm, cooperative, nj1 appropriate for age. Pain: Complains of pain in ribs, left Pain currently is 0 out of 10 on a pain scale. at worst was 7 out of 10 on a pain scale. Alleviated by rest, Aggravated by repositioning. Neuro: Level of Consciousness is awake, alert, obeys commands, Oriented to person, place, time, situation. 10:10 Cardiovascular: Patient's skin is warm and dry. Respiratory: Airway is patent nj1 Respiratory effort is even, unlabored. 11:32 Reassessment: Patient appears in no apparent distress at this time. No changes from [facility] previously documented assessment. Patient and/or family updated on plan of care and expected duration. Pain level reassessed. Patient is alert, oriented x 3, equal unlabored respirations, skin warm/dry/pink. 12:33 Reassessment: Not in room, in imaging. nj 12:56 Reassessment: Patient appears in no apparent distress at this time. Patient and/or md1 family updated on plan of care and expected duration. Pain level reassessed. Patient is alert, oriented x 3, equal unlabored respirations, skin warm/dry/pink. 13:30 Reassessment: Patient appears in no apparent distress at this time. Patient is alert, nj1 oriented x 3, equal unlabored respirations, skin warm/dry/pink. Vital Signs: 09:56 BP 176 / 118; Pulse 68; Resp 18; Temp 97.8(TE); Pulse Ox 98% on R/A; Weight 68.04 kg; hb Height 5 ft. 3 in. ; Pain 7/10; 10:15 BP 140 / 89; Pulse 65; Resp 18; Pulse Ox 99% on R/A; Pain 0/10; nj1 11:32 BP 126 / 85; Pulse 57; Resp 14; Pulse Ox 98% ; Pain 0/10; nj1 12:55 BP 133 / 91; Pulse 56; Resp 12; Pulse Ox 98% ; Pain 4/10; nj1 13:30 Pain 0/10; nj1 13:30 BP 123 / 91; Pulse 56; Resp 15; Pulse Ox 100% ; Pain 0/10; nj1 09:56 Body Mass Index 26.57 (68.04 kg, 160.02 cm) hb 09:56 Pain Scale: Adult hb 10:15 Pain Scale: Adult nj1 11:32 Pain Scale: Adult nj1 12:55 Pain Scale: Adult nj1 13:30 Pain Scale: Adult nj1 13:30 Pain Scale: Adult nj1 ED Course: 09:44 Patient arrived in ED. mr 09:45 Garfield Quezada MD is Attending Physician. rt 09:58 Triage completed. hb 09:58 Arm band placed on. hb 10:09 Aurelia Kunz, RN is Primary Nurse. nj1 10:10 EKG done, by ED staff, reviewed by Garfield Quezada MD. mb4 10:17 Inserted saline lock: 20 gauge in right forearm, using aseptic technique. Blood nj1 collected. 10:22 Patient has correct armband on for positive identification. Bed in low position. Call nj1 light in reach. Provided Education on: call light, fall precautions. 10:27 XRAY Chest (1 view) In Process Unspecified. EDMS 10:27 Ribs Left XRAY In Process Unspecified. EDMS 10:35 Client placed on continuous cardiac and pulse oximetry monitoring. NIBP monitoring nj1 applied. panel monitor on. 12:33 CT Abd/Pelvis - IV Contrast Only In Process Unspecified. EDMS 13:30 No provider procedures requiring assistance completed. IV discontinued, intact, nj1 bleeding controlled, Pressure dressing applied. Administered Medications: 10:18 Drug: Ketorolac IVP 15 mg IVP once Route: IVP; Site: right forearm; nj1 13:30 Follow up: Pain 0/10 Adult; Response: No adverse reaction nj1 Medication: 13:44 VIS not applicable for this client. nj1 Outcome: 13:17 Discharge ordered by . rt 13:44 Discharged to home ambulatory, nj1 13:44 Condition: stable 13:44 Discharge instructions given to patient, Instructed on discharge instructions, follow up and referral plans. medication usage, Demonstrated understanding of instructions, follow-up care, medications, Prescriptions given X 1, 13:47 Patient left the ED. nj1 Signatures: Dispatcher [employer] EDMS Milady Glass, Bertha Kumar, BRI RN Miranda Campos mb4 Garfield Quezada MD MD rt Aurelia Kunz, RN RN nj1
--- NOTE | 2023-10-31 13:17 | EDPHYS ---
Physician Documentation [facility] Name: Herlinda Porter Age: 53 yrs Sex: Female : 1970 Arrival Date: 10/31/2023 Time: 09:42 Bed 18 Private MD: ED Physician Garfield Quezada HPI: 10/30 10:09 This 53 yrs old Female presents to ER via Ambulatory with complaints of Rib rt pain. 10:09 Patient presents to the ED with a pain to the left lower rib margin. This has been rt present for 3 days. The patient states that is worse with movement, like when she is driving or bends over or coughs. Denies difficulty breathing. Denies other acute complaints, symptoms are moderate severity, aching nature, nonradiating, no other aggravating or alleviating factors.. Historical: - Allergies: :58 No Known Allergies; hb - Home Meds: :58 Ozempic 1 mg/dose (4 mg/3 mL) subcutaneous Pen Injector [Active]; lisinopril Oral hb [Active]; - PMHx: :58 Hypertension; hb - Immunization history:: Adult Immunizations up to date. - Infectious Disease History:: Denies. - Social history:: Smoking status: Patient denies any tobacco usage or history of. - Family history:: not pertinent. ROS: 10:09 Constitutional: Negative for fever, chills, and weight loss, Respiratory: Negative for rt shortness of breath, cough, wheezing, and pleuritic chest pain, Abdomen/GI: Negative for abdominal pain, nausea, vomiting, diarrhea, and constipation, MS/Extremity: Negative for injury and deformity, Skin: Negative for injury, rash, and discoloration, Neuro: Negative for headache, weakness, numbness, tingling, and seizure, 10:09 Cardiovascular: Positive for chest pain, Negative for edema, Exam: 10:09 Constitutional: This is a well developed, well nourished patient who is awake, alert, rt and in no acute distress. Head/Face: Normocephalic, atraumatic. Cardiovascular: Regular rate and rhythm with a normal S1 and S2. No gallops, murmurs, or rubs. Normal PMI, no JVD. No pulse deficits. Respiratory: Lungs have equal breath sounds bilaterally, clear to auscultation and percussion. No rales, rhonchi or wheezes noted. No increased work of breathing, no retractions or nasal flaring. Abdomen/GI: Soft, non-tender, with normal bowel sounds. No distension or tympany. No guarding or rebound. No evidence of tenderness throughout. Skin: Warm, dry with normal turgor. Normal color with no rashes, no lesions, and no evidence of cellulitis. MS/ Extremity: Pulses equal, no cyanosis. Neurovascular intact. Full, normal range of motion. Neuro: Awake and alert, GCS 15, oriented to person, place, time, and situation. Cranial nerves II-XII grossly intact. Motor strength 5/5 in all extremities. Sensory grossly intact. Cerebellar exam normal. Normal gait. 10:09 Chest/axilla: Tenderness to the left lower rib margin, no crepitus felt. 10:14 ECG was reviewed by the Attending Physician. rt Vital Signs: 09:56 BP 176 / 118; Pulse 68; Resp 18; Temp 97.8(TE); Pulse Ox 98% on R/A; Weight 68.04 kg; hb Height 5 ft. 3 in. ; Pain 7/10; 10:15 BP 140 / 89; Pulse 65; Resp 18; Pulse Ox 99% on R/A; Pain 0/10; nj1 11:32 BP 126 / 85; Pulse 57; Resp 14; Pulse Ox 98% ; Pain 0/10; nj1 12:55 BP 133 / 91; Pulse 56; Resp 12; Pulse Ox 98% ; Pain 4/10; nj1 13:30 Pain 0/10; nj1 13:30 BP 123 / 91; Pulse 56; Resp 15; Pulse Ox 100% ; Pain 0/10; nj1 09:56 Body Mass Index 26.57 (68.04 kg, 160.02 cm) hb 09:56 Pain Scale: Adult hb 10:15 Pain Scale: Adult nj1 11:32 Pain Scale: Adult nj1 12:55 Pain Scale: Adult nj1 13:30 Pain Scale: Adult nj1 13:30 Pain Scale: Adult nj1 MDM: 09:54 Patient medically screened. rt 13:58 Differential Diagnosis Chest wall pain, rib fracture, pneumothorax. Data reviewed: rt vital signs, nurses notes, lab test result(s), EKG, radiologic studies. Consideration of Admission/Observation Escalation of care including admission/observation considered. Symptoms not consistent with an acute coronary syndrome, most consistent with a chest wall pain, negative troponin, given chronicity of symptoms, 1 set of enzymes is sufficient to rule out ACS, no rib fractures, pneumothorax. Patient was incidentally found to have a mildly elevated lipase, bilirubin. CT scan was obtained that shows no biliary ductal dilation, mild fatty liver. I did discuss this at length with the patient. Patient instructed to follow-up as an outpatient for this.. I considered the following discharge prescriptions or medication management in the emergency department Medications were administered in the Emergency Department. See MAR. Independent interpretation of the following test(s) in the Emergency Department X-Ray: My interpretation is No pneumothorax seen on interpretation of x-ray images. Care significantly affected by the following chronic conditions: Hypertension. Scoring Tools HEART Score: History: Slightly Suspicious (0) ECG: Normal (0) Age: > 45 and < 65 years (1) Risk Factors: 1 or 2 Risk factors (1) Troponin: < or = 1 x Normal limit (0) Total Score = 2. Counseling: I had a detailed discussion with the patient and/or guardian regarding the historical points, exam findings, and any diagnostic results supporting the discharge/admit diagnosis, lab results, radiology results, the need for outpatient follow up, to return to the emergency department if symptoms worsen or persist or if there are any questions or concerns that arise at home. Response to treatment: the patient's symptoms have markedly improved after treatment. 10/30 10:07 Order name: Basic Metabolic Panel; Complete Time: 11:40 rt 10/30 10:07 Order name: CBC with Diff; Complete Time: 11:40 rt 10/30 10:07 Order name: LFT's; Complete Time: 11:40 rt 10/30 10:07 Order name: Magnesium; Complete Time: 11:40 rt 10/30 10:07 Order name: Troponin HS; Complete Time: 11:40 rt 10/30 10:07 Order name: Lipase; Complete Time: 11:40 rt 10/30 10:43 Order name: CBC Smear Scan; Complete Time: 11:40 EDMS 10/30 10:07 Order name: XRAY Chest (1 view); Complete Time: 12:03 rt 10/30 10:07 Order name: Ribs Left XRAY; Complete Time: 12:03 rt 10/30 12:14 Order name: CT Abd/Pelvis - IV Contrast Only; Complete Time: 13:06 rt 10/30 10:07 Order name: Cardiac monitoring; Complete Time: 10:34 rt 10/30 10:07 Order name: EKG - Nurse/Tech; Complete Time: 10:14 rt 10/30 10:07 Order name: IV Saline Lock; Complete Time: 10:20 rt 10/30 10:07 Order name: Labs collected and sent; Complete Time: 10:20 rt 10/30 10:07 Order name: O2 Per Protocol; Complete Time: 10:20 rt 10/30 10:07 Order name: O2 Sat Monitoring; Complete Time: 10:20 rt EC:14 Rate is 55 beats/min. Rhythm is regular, Sinus bradycardia with No ectopy. QRS [place] is rt Normal. VT interval is normal. QRS interval is normal. QT interval is normal. No Q waves. T waves are Normal. No ST changes noted. Interpreted by me. Administered Medications: 10:18 Drug: Ketorolac IVP 15 mg IVP once Route: IVP; Site: right forearm; nj1 13:30 Follow up: Pain 0/10 Adult; Response: No adverse reaction nj1 Disposition Summary: 10/31/23 13:17 Discharge Ordered Notes: Location: Home rt Problem: new rt Symptoms: have improved rt Condition: Stable rt Diagnosis - Chest wall pain rt Followup: rt - With: Private Physician - When: 2 - 3 days - Reason: Discharge Instructions: - Discharge Summary Sheet rt - Chest Wall Pain rt Forms: - Medication Reconciliation Form rt - Antibiotic Education rt - Prescription Opioid Use rt - Patient Portal Instructions rt - Leadership Thank You Letter rt Prescriptions: - Tramadol 50 mg Oral Tablet - take 1 tablet ORAL route every 8 hours as needed; 12 tablet; Refills: 0, rt Product Selection Permitted Signatures: Dispatcher [employer] EDMS Bertha Campos RN RN Garfield Quezada MD MD rt Aurelia Kunz RN RN nj1 Corrections: (The following items were deleted from the chart) 10:07 10:07 BASIC METABOLIC PANEL+C.LAB.BRZ ordered. EDMS EDMS 10:07 10:07 CBC+H.LAB.BRZ ordered. EDMS EDMS 10:07 10:07 HEPATIC FUNCTION+C.LAB.BRZ ordered. EDMS EDMS 10:07 10:07 MAGNESIUM+C.LAB.BRZ ordered. EDMS EDMS 10: 10:07 Troponin High Sensitivity+C.LAB.BRZ ordered. EDMS EDMS 10: 10:07 LIPASE+C.LAB.BRZ ordered. EDMS EDMS 10:07 10:07 Chest Single View+RAD.RAD.BRZ ordered. EDMS EDMS 10:08 10:08 Ribs Left+RAD.RAD.BRZ ordered. EDMS EDMS 12:14 12:14 Abdomen Pelvis W Con+CT.RAD.BRZ ordered. EDMS EDMS
[2023-10-31 14:14] VITALS: BP 123/91; TEMP 97.8; O2SAT 100
--- NOTE | 2023-11-01 14:06 | EKG ---
Test Date: 2023-10-31 Test Time: 10:11:02 [place] [employer]oom: FARZANEH MEASUREMENT RESULTS: Intervals: Rate: 55 DE: 138 QRSD: 80 QT: 454 QTc: 434 [place]: P: 36 DE: 138 QRS: -5 T: 12 INTERPRETIVE STATEMENTS: Sinus bradycardia Low voltage QRS Borderline ECG Compared to ECG 07/29/2023 09:55:28 T-wave abnormality no longer present Prolonged QT interval no longer present Electronically Signed On 11-01-23 14:05:26 CDT by Surya Zapien
== END 2023-10-31 13:47 | disposition home or self-care (01) ==
LOC: ER 09:42
DX: R07.89 Other chest pain (principal); I10 Essential (primary) hypertension
CPT/HCPCS: 93005; 85025; 80048; 36415; 83735; 80076; 84484; 83690; 74177; 71045; 71100; 96374; 99285; Q9967

== ENCOUNTER 2023-12-16 07:45 | Emergency (ER) | payer OTHER ==
--- NOTE | 2023-12-16 08:17 | ER ---
Nurse's Notes [facility] Name: Herlinda Porter Age: 53 yrs Sex: Female : 1970 Arrival Date: 12/16/2023 Time: 07:45 Bed 13 Private MD: Diagnosis: Suture removal by physician Presentation: 12/15 07:59 Chief complaint: Patient states: she was evaluated in our facility 2 weeks ago and ap3 received 2 stitches. patient was informed to come have the sutures removed after 2 weeks. sutures are present on the right side of the patients head. patient denies any pain at this time. Coronavirus screen: At this time, the client does not indicate any symptoms associated with coronavirus-19. Ebola Screen: No symptoms or risks identified at this time. Initial Sepsis Screen: Does the patient meet any 2 criteria? No. Patient's initial sepsis screen is negative. Does the patient have a suspected source of infection? No. Patient's initial sepsis screen is negative. Risk Assessment: Do you want to hurt yourself or someone else? Patient reports no desire to harm self or others. Onset of symptoms is unknown. 07:59 Method Of Arrival: Ambulatory ap3 07:59 Acuity: MARU 4 ap3 Triage Assessment: 08:01 General: Appears in no apparent distress. Behavior is calm, cooperative, appropriate ap3 for age. Pain: Denies pain. Neuro: Level of Consciousness is awake, alert, obeys commands, Oriented to person, place, time, situation, Speech is normal. Cardiovascular: Patient's skin is warm and dry. Respiratory: Airway is patent Respiratory effort is even, unlabored. Derm: [address] on scalp. Historical: - Allergies: 08:01 No Known Allergies; ap3 - PMHx: 08:01 Hypertension; ap3 - PSHx: 08:01 Appendectomy; section; ap3 - Immunization history:: Client reports receiving the 2nd dose of the Covid vaccine, Last tetanus immunization: up to date. - Infectious Disease History:: Denies. - Social history:: Smoking status: Patient denies any tobacco usage or history of. Screenin:02 [facility] ED Fall Risk Assessment (Adult) History of falling in the last 3 months, ap3 including since admission No falls in past 3 months (0 pts) Confusion or Disorientation No (0 pts) Intoxicated or Sedated No (0 pts) Impaired Gait No (0 pts) Mobility Assist Device Used No (0 pt) Altered Elimination No (0 pt) Score/Fall Risk Level 0 - 2 = Low Risk Oriented to surroundings, Maintained a safe environment, Educated pt \T\ family on fall prevention, incl call for assistance when getting out of bed, Assessed \T\ reinforced patient's understanding of fall precautions, Hourly rounding (assess needs \T\ fall precautionary measures) done, Used ambulatory aids as needed (educated on \T\ assisted with), Used gait belt as appropriate. Abuse screen: Denies threats or abuse. Nutritional screening: No deficits noted. Tuberculosis screening: No symptoms or risk factors identified. Assessment: 08:00 Reassessment: Patient appears in no apparent distress at this time. Patient and/or db family updated on plan of care and expected duration. Pain level reassessed. Patient is alert, oriented x 3, equal unlabored respirations, skin warm/dry/pink. General: Appears in no apparent distress. comfortable, Behavior is calm, cooperative. Neuro: Level of Consciousness is awake, alert, obeys commands, Oriented to person, place, time, situation. Respiratory: Airway is patent Respiratory effort is even, unlabored, Respiratory pattern is regular, symmetrical. Vital Signs: 07:59 BP 138 / 92; Pulse 61; Resp 17; Temp 97.8; Pulse Ox 100% ; Weight 68.04 kg; Height 5 ap3 ft. 3 in. ; Pain 0/10; 08:00 BP 130 / 94; Pulse 66; Resp 16; Pulse Ox 99% ; db 07:59 Body Mass Index 26.57 (68.04 kg, 160.02 cm) ap3 07:59 Pain Scale: Adult ap3 ED Course: 07:48 Patient arrived in ED. mg5 08:01 Triage completed. ap3 08:01 Yesica Rodriguez MD is Attending Physician. sp3 08:02 Arm band placed on right wrist. ap3 08:02 Patient has correct armband on for positive identification. Bed in low position. Call ap3 light in reach. Side rails up X 1. Pulse ox on. NIBP on. 08:25 Darcy Lewis RN is Primary Nurse. db 08:25 Patient did not have IV access during this emergency room visit. Removal of Removed db sutures from scalp Suture site is well healed Patient tolerated well. 08:26 Provided Education on: DISCHARGE. db 08:26 Warm blanket given. db 08:26 No provider procedures requiring assistance completed. db Administered Medications: No medications were administered Medication: 08:03 VIS not applicable for this client. ap3 Outcome: 08:16 Discharge ordered by . spJet 08:26 Discharged to home ambulatory, db 08:26 Condition: stable 08:26 Discharge instructions given to patient, Instructed on discharge instructions, follow up and referral plans. 08:31 Patient left the ED. db Signatures: Shahida Castano, RN RN ap3 Yesica Rodriguez MD MD sp3 Darcy Lewis RN RN db Griselda Crandall mg5
--- NOTE | 2023-12-16 08:17 | EDPHYS ---
Physician Documentation [facility] Name: Herlinda Porter Age: 53 yrs Sex: Female : 1970 Arrival Date: 12/16/2023 Time: 07:45 Bed 13 Private MD: ED Physician Yesica Rodriguez HPI: 12/15 08:14 This 53 yrs old Female presents to ER via Ambulatory with complaints of Suture sp3 Removal. 08:14 53-year-old female with a history of hypertension presents for suture removal with 2 sp3 sutures placed on the scalp approximately 2 weeks ago from falling out of bed. Patient has had no complications, headache, nausea, bleeding, rash, fever or any other signs or symptoms on ROS at this time.. Historical: - Allergies: 08:01 No Known Allergies; ap3 - PMHx: 08:01 Hypertension; ap3 - PSHx: 08:01 Appendectomy; section; ap3 - Immunization history:: Client reports receiving the 2nd dose of the Covid vaccine, Last tetanus immunization: up to date. - Infectious Disease History:: Denies. - Social history:: Smoking status: Patient denies any tobacco usage or history of. ROS: 08:14 Constitutional: Negative for fever, chills, and weight loss, Eyes: Negative for injury, sp3 pain, redness, and discharge, ENT: Negative for injury, pain, and discharge, Neck: Negative for injury, pain, and swelling, Cardiovascular: Negative for chest pain, palpitations, and edema, Respiratory: Negative for shortness of breath, cough, wheezing, and pleuritic chest pain, Abdomen/GI: Negative for abdominal pain, nausea, vomiting, diarrhea, and constipation, Back: Negative for injury and pain, MS/Extremity: Negative for injury and deformity, Skin: Negative for injury, rash, and discoloration, Neuro: Negative for headache, weakness, numbness, tingling, and seizure, 08:14 All other systems are negative, Exam: 08:15 Constitutional: This is a well developed, well nourished patient who is awake, alert, sp3 and in no acute distress. Head/Face: Normocephalic, atraumatic. Eyes: Pupils equal round and reactive to light, extra-ocular motions intact. Lids and lashes normal. Conjunctiva and sclera are non-icteric and not injected. Cornea within normal limits. Periorbital areas with no swelling, redness, or edema. Neck: Trachea midline, no thyromegaly or masses palpated, and no cervical lymphadenopathy. Supple, full range of motion without nuchal rigidity, or vertebral point tenderness. No Meningismus. 08:15 Head/face: [address] in the right parietal region without complication, infection or bleeding.. Vital Signs: 07:59 BP 138 / 92; Pulse 61; Resp 17; Temp 97.8; Pulse Ox 100% ; Weight 68.04 kg; Height 5 ap3 ft. 3 in. ; Pain 0/10; 08:00 BP 130 / 94; Pulse 66; Resp 16; Pulse Ox 99% ; db 07:59 Body Mass Index 26.57 (68.04 kg, 160.02 cm) ap3 07:59 Pain Scale: Adult ap3 MDM: 08:01 Patient medically screened. sp3 08:15 Data reviewed: vital signs, nurses notes, old medical records. ED course: 2 sutures sp3 removed with tweezers and #11 blade by physician. No bleeding noted. Betadine prep. Patient will be safely discharged home at this time.. Administered Medications: No medications were administered Disposition Summary: 12/16/23 08:16 Discharge Ordered Notes: Location: Home sp3 Condition: Stable sp3 Diagnosis - Suture removal by physician sp3 Followup: sp3 - With: Private Physician - When: Upon discharge from the Emergency Department - Reason: If symptoms return Discharge Instructions: - Discharge Summary Sheet sp3 - Suture Removal, Care After sp3 Forms: - Medication Reconciliation Form sp3 - Antibiotic Education sp3 - Prescription Opioid Use sp3 - Patient Portal Instructions sp3 - Leadership Thank You Letter sp3 Signatures: Shahida Castano RN RN ap3 Yesica Rodriguez MD MD sp3 Darcy Lewis RN RN db
[2023-12-16 08:36] VITALS: TEMP 97.8
[2023-12-16 08:37] VITALS: BP 130/94; O2SAT 99
== END 2023-12-16 08:31 | disposition home or self-care (01) ==
LOC: ER 07:45
DX: Z48.02 Encounter for removal of sutures (principal)